=== PATIENT | male | born 1955 | race Caucasian/White ===

== ENCOUNTER 2016-10-30 18:29 | Emergency (ER) | payer MEDICARE, OTHER ==
--- NOTE | 2016-10-30 18:47 | ER Document Report ---
ED Medical Screen (RME) - General Chief Complaint: Foot Injury Stated Complaint: RIGHT HEEL PROBLEM, LEFT LEG PAIN Time seen by provider: 18:42 Mode of Arrival: Wheelchair Information source: Patient Notes: 61-year-old diabetic renal dialysis patient noticed that there was skin peeling off when he thought a dressing needed to come off of the right heel last night. After dialysis they were trying to get him seen at the wound care clinic but never got any phone calls back. 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 IN LAST 30 DAYS: No - Related Data Allergies/Adverse Reactions: No Known Allergies Allergy (Verified 08/04/16 00:42) Past Medical History - Past Medical History Cardiac Medical History: Reports: Hx Coronary Artery Disease, Hx Heart Attack, Hx Hypercholesterolemia, Hx Hypertension, Hx Heart Murmur Denies: Hx Atrial Fibrillation, Hx Congestive Heart Failure, Hx Peripheral Vascular Disease, Hx Pulmonary Embolism Pulmonary Medical History: Reports: Hx Bronchitis, Hx Pneumonia, Hx Respiratory Failure, Hx Sleep Apnea Denies: Hx Asthma, Hx COPD Neurological Medical History: Denies: Hx Cerebrovascular Accident, Hx Seizures Endocrine Medical History: Reports: Hx Diabetes Mellitus Type 2. Denies: Hx Graves' Disease, Hx Hyperthyroidism, Hx Hypothyroidism Renal/ Medical History: Reports: Hx End Stage Renal Disease, Hx Hemodialysis. Denies: Hx Benign Prostatic Hyperplasia, Hx Kidney Stones, Hx Peritoneal Dialysis Malignancy Medical History: Denies Hx Leukemia, Denies Hx Lung Cancer GI Medical History: Reports: Hx Gastroesophageal Reflux Disease, Hx Irritable Bowel, Hx Ulcer. Denies: Hx Crohn's Disease, Hx Hepatitis, Hx Hiatal Hernia, Hx Liver Failure Musculoskeltal Medical History: Reports Hx Arthritis, Denies Hx Fibromyalgia, Denies Hx Muscular Dystrophy Psychiatric Medical History: Reports: Hx Depression, Hx Post Traumatic Stress Disorder Denies: Hx Bipolar Disorder, Hx Schizophrenia Traumatic Medical History: Reports: Hx Fractures - Left ankle Infectious Medical History: Denies: Hx Hepatitis, Hx HIV Past Surgical History: Reports: Hx Bowel Surgery - ruptured bowel, Hx Colostomy - reversed, Hx Orthopedic Surgery - Left rotator cuff x2, right rotator cuff x1 , Hx Tonsillectomy. Denies: Hx Appendectomy, Hx Cholecystectomy, Hx Coronary Artery Bypass Graft, Hx Gastric Bypass Surgery, Hx Herniorrhaphy, Hx Open Heart Surgery, Hx Pacemaker - Immunizations Hx Diphtheria, Pertussis, Tetanus Vaccination: Yes Physical Exam - Vital signs Vitals: Temp Pulse Resp BP Pulse Ox 97.9 F 96 20 128/68 H 96 10/30/16 18:40 10/30/16 18:40 10/30/16 18:40 10/30/16 18:40 10/30/16 18:40 Course - Vital Signs Vital signs: Temp Pulse Resp BP Pulse Ox 97.9 F 96 20 128/68 H 96 10/30/16 18:40 10/30/16 18:40 10/30/16 18:40 10/30/16 18:40 10/30/16 18:40
[2016-10-30 19:36] LABS: ABSOLUTE BASOPHILS # (AUTO) 0.1 10^3/uL (0.0-0.2); ABSOLUTE EOSINOPHILS # (AUTO) 0.2 10^3/uL (0.0-0.6); ABSOLUTE LYMPHOCYTES (AUTO) 1.1 10^3/uL (0.5-4.7); ABSOLUTE MONOCYTES (AUTO) 0.7 10^3/uL (0.1-1.4); ABSOLUTE NEUT (AUTO) 6.9 10^3/uL (1.7-8.2); BASOPHILS % (AUTO) 0.6 % (0-2); EOSINOPHILS % (AUTO) 2.3 % (0-6); HEMATOCRIT 33.6 % (37.9-51.0); HGB HCT DIFFERENCE 2.4; LYMPHOCYTES % (AUTO) 12.3 % (13-45); MEAN CORPUSCULAR HEMOGLOBIN 32.7 pg (27.0-33.4); MEAN CORPUSCULAR HGB CONC 35.7 g/dL (32.0-36.0); MEAN CORPUSCULAR VOLUME 92 fl (80-97); MONOCYTES % (AUTO) 7.8 % (3-13); RED BLOOD COUNT 3.68 10^6/uL (4.35-5.55); RED CELL DISTRIBUTION WIDTH 16.3 % (11.5-14.0)
[2016-10-30 19:41] LABS: PROTHROMBIN TIME 13.4 SEC (11.4-15.4)
[2016-10-30 19:42] LABS: PARTIAL THROMBOPLASTIN TIME 30.1 SEC (23.5-35.8)
[2016-10-30 19:57] LABS: ALANINE AMINOTRANSFERASE 26 U/L (21-72); ALBUMIN 4.3 g/dL (3.5-5.0); ALKALINE PHOSPHATASE 169 U/L (38-126); ASPARTATE AMINO TRANSFERASE 19 U/L (17-59); BILIRUBIN,TOTAL 0.4 mg/dL (0.2-1.3); BLOOD UREA NITROGEN 54 mg/dL (7-20); CALCIUM 8.1 mg/dL (8.4-10.2); CHLORIDE 98 mmol/L (98-107); CREATININE RESULT 8.89 mg/dL (0.52-1.25); GLUCOSE 291 mg/dL (75-110); POTASSIUM 5.6 mmol/L (3.6-5.0); TOTAL PROTEIN 6.9 g/dL (6.3-8.2)
--- NOTE | 2016-10-30 19:58 | ER Document Report ---
ED General - General Chief Complaint: Leg Pain Stated Complaint: RIGHT HEEL PROBLEM, LEFT LEG PAIN Time seen by provider: 19:53 Mode of Arrival: Wheelchair Information source: Patient Notes: 61-year-old male removed his shoe and sock this morning and felt as if there was a bandage on his heel and his noted that when he accidentally got his pealed back considerable portion of skin from the heel. Patient initially went to his physician Dr. Carolee GIL for this today Dr. Carolee GIL requested that he try to get in to see the wound clinic here today but patient says he never got a call back so he came to the emergency department. Patient says he did dialyze today as he normally does and is due to dialysis again tomorrow because of recent weather problems. He denies fever, chills, nausea, vomiting, cough, shortness of breath, chest pain, abdominal pain. He reports making minimal urine. Patient complains about worsening pain in his left BKA stump says he did not have any drainage or redness in that area Physical Exam: General: Alert, appears well. HEENT: Normocephalic. Atraumatic. PERRLA. Extraocular movements intact. Oropharynx clear. Neck: Supple. Non-tender. Respiratory: No respiratory distress. Clear and equal breath sounds bilaterally. Cardiovascular: Regular rate and rhythm. Abdominal: Normal Inspection. Soft, non-tender. No distension. Normal Bowel Sounds. Extremities. Left forearm dialysis access site appears healthy. Left BKA stump site appears healthy. Right lower extremity has 1 posttussis and posterior tibial pulses with brisk cap refill to toes. There is a 4 x 4 centimeter area of pealed back scan with healthy-appearing tissue underneath and no surrounding erythema or edema or crepitance or fluctuance. Neurological: Speech clear mentation clear moves extremities well Psychological: Normal affect. Normal Mood. Skin: Warm. Dry. Normal color. TRAVEL OUTSIDE OF THE [place] IN LAST 30 DAYS: No - Related Data Allergies/Adverse Reactions: No Known Allergies Allergy (Verified 08/04/16 00:42) Past Medical History - General Information source: Patient - Social History Smoking Status: Unknown if Ever Smoked Family History: Hypertension Patient has suicidal ideation: No Patient has homicidal ideation: No - Past Medical History Cardiac Medical History: Reports: Hx Coronary Artery Disease, Hx Heart Attack, Hx Hypercholesterolemia, Hx Hypertension, Hx Heart Murmur Denies: Hx Atrial Fibrillation, Hx Congestive Heart Failure, Hx Peripheral Vascular Disease, Hx Pulmonary Embolism Pulmonary Medical History: Reports: Hx Bronchitis, Hx Pneumonia, Hx Respiratory Failure, Hx Sleep Apnea Denies: Hx Asthma, Hx COPD Neurological Medical History: Denies: Hx Cerebrovascular Accident, Hx Seizures Endocrine Medical History: Reports: Hx Diabetes Mellitus Type 2. Denies: Hx Graves' Disease, Hx Hyperthyroidism, Hx Hypothyroidism Renal/ Medical History: Reports: Hx End Stage Renal Disease, Hx Hemodialysis. Denies: Hx Benign Prostatic Hyperplasia, Hx Kidney Stones, Hx Peritoneal Dialysis Malignancy Medical History: Denies Hx Leukemia, Denies Hx Lung Cancer GI Medical History: Reports: Hx Gastroesophageal Reflux Disease, Hx Irritable Bowel, Hx Ulcer. Denies: Hx Crohn's Disease, Hx Hepatitis, Hx Hiatal Hernia, Hx Liver Failure Musculoskeltal Medical History: Reports Hx Arthritis, Denies Hx Fibromyalgia, Denies Hx Muscular Dystrophy Psychiatric Medical History: Reports: Hx Depression, Hx Post Traumatic Stress Disorder Denies: Hx Bipolar Disorder, Hx Schizophrenia Traumatic Medical History: Reports: Hx Fractures - Left ankle Infectious Medical History: Denies: Hx Hepatitis, Hx HIV Past Surgical History: Reports: Hx Bowel Surgery - ruptured bowel, Hx Colostomy - reversed, Hx Orthopedic Surgery - Left rotator cuff x2, right rotator cuff x1 , Hx Tonsillectomy. Denies: Hx Appendectomy, Hx Cholecystectomy, Hx Coronary Artery Bypass Graft, Hx Gastric Bypass Surgery, Hx Herniorrhaphy, Hx Open Heart Surgery, Hx Pacemaker - Immunizations Hx Diphtheria, Pertussis, Tetanus Vaccination: Yes Hx Pneumococcal Vaccination: 12/30/11 Review of Systems - Review of Systems Constitutional: denies: Chills, Fever EENT: denies: Ear pain, Throat pain Cardiovascular: denies: Chest pain Respiratory: denies: Cough, Short of breath Gastrointestinal: denies: Abdominal pain, Nausea, Vomiting Genitourinary: denies: Frequency Musculoskeletal: denies: Back pain Hematologic/Lymphatic: denies: Swollen glands Neurological/Psychological: Numbness Physical Exam - Vital signs Vitals: Temp Pulse Resp BP Pulse Ox 97.9 F 96 20 128/68 H 96 10/30/16 18:40 10/30/16 18:40 10/30/16 18:40 10/30/16 18:40 10/30/16 18:40 Course - Re-evaluation Re-evalutation: 10/30/16 20:13 Patient has a loss of epidermis with intact dermis and no signs or symptoms of any deep infection or osteomyelitis. We placed on antibiotics orally and asked to follow with wound care as soon as possible with meticulous care to the area of the wound and visualizing it daily until he is seen by was declan. Dressing will be placed on it here. - Vital Signs Vital signs: Temp Pulse Resp BP Pulse Ox 97.9 F 96 20 128/68 H 96 10/30/16 18:40 10/30/16 18:40 10/30/16 18:40 10/30/16 18:40 10/30/16 18:40 - Laboratory Result Diagrams: 10/30/16 19:15 10/30/16 19:15 Laboratory results interpreted by me: 10/30/16 10/30/16 19:15 19:15 RBC 3.68 L Hgb 12.0 L Hct 33.6 L RDW 16.3 H Lymphocytes % 12.3 L Potassium 5.6 H Carbon Dioxide 20 L Anion Gap 22 H BUN 54 H Creatinine 8.89 H Est GFR ( Amer) 7 L Est GFR (Non-Af Amer) 6 L Glucose 291 H Calcium 8.1 L Alkaline Phosphatase 169 H - Diagnostic Test Radiology reviewed: Image reviewed, Reports reviewed Discharge - Discharge Clinical Impression: Pressure sore Qualifiers: Pressure ulcer location: heel Pressure ulcer stage: stage 2 Laterality: right Qualified Code(s): L89.612 - Pressure ulcer of right heel, stage 2 Clinical Impression: (Ruled Out): Decubitus ulcer of right heel, unstageable Condition: Stable Disposition: HOME, SELF-CARE Additional Instructions: Decubitus Ulcer A decubitus ulcer develops where there's pressure on the skin. It's a common problem in patients who can't move easily. The healing time depends on the size and depth of the ulcer, and on whether further damage can be avoided. If there are signs of infection, an antibiotic is prescribed. The ulcer should be cleaned and bandaged at least daily. The doctor may recommend special treatments such as whirlpool. Further pressure (such as lying on the ulcer area) should be absolutely avoided. Frequent changes of position will avoid further ulcers. To help the ulcer heal, pay close attention to general health. Diabetics should keep the blood sugar as normal as possible. Edema can be reduced with medication. Low blood oxygen can be improved with medication to improve breathing or an oxygen tank at home. Review the treatment of all medical problems with the doctor. Infection can spread from the ulcer. If there's fever, chilling, worsening pain, or increasing swelling in the area, call the doctor or return immediately. Prescriptions: Cephalexin Monohydrate [Keflex 500 mg Capsule] 500 mg PO QID #20 capsule Referrals: JOHNNY MCALLISTER MD [Primary Care Provider] - Follow up as needed Wound Care [Provider Group] - Follow up tomorrow
[2016-10-30 20:06] LABS: CARBON DIOXIDE 20 mmol/L (22-30); SODIUM 140.1 mmol/L (137-145)
[2016-10-30 20:08] LABS: ANION GAP 22 (5-19)
[2016-10-30 20:52] VITALS: BP 129/54
== END 2016-10-30 20:47 | disposition home or self-care (01) ==
LOC: ER 18:29
DX: L89.612 Pressure ulcer of right heel, stage 2 (principal); M79.605 Pain in left leg
CPT/HCPCS: 36415; 80053; 85025; 85610; 85730; 99283

== ENCOUNTER → 2016-11-13 | Outpatient (CLI) | payer MEDICARE, OTHER ==
--- NOTE | 2016-11-13 16:41 | XCELERA REPORT ---
[address] [address] Lower Extremity Arterial Evaluation Name: SHARONDA SU Age: 61 yrs Gender: Male : 1955 Patient Status: Outpatient Patient Location: Study Date: 11/13/2016 08:47 AM Procedure: A color flow and duplex scan of the lower extremity arteries was performed bilaterally with velocity and waveform anaylsis. Ankle brachial indicies performed. Reason For Study: RIGHT HEEL ULCER Ordering Physician: GONZALES SARMIENTO Performed By: Anil Mcdaniel Measurements and Calculations Right Left BUILDING SUPERINTENDENT PSV 117.1 86.6 cm/sec Prox PFA PSV -52.0 -45.4 cm/sec Dist SFA PSV -196.4 -89.9 cm/sec Prox Pop A PSV 52.7 348.9 cm/sec Dist ROMERO PSV 68.0 91.5 cm/sec Prox TOXICOLOGY TEACHER PSV 43.2 cm/sec Dist TOXICOLOGY TEACHER PSV -117.5 cm/sec Herman Pedis PSV -75.1 cm/sec Right Side Arterial Evaluation Normal velocity, waveform and triphasic flow are present, from the Common Femoral artery down to the Anterior Tibial artery. Biphasic in the Posterior Tibial artery. The ankle-brachial index is 1.00. Non compressible Posterior Tibial artery. 20-49 % stenosis is noted at the Posterior Tibial artery. Left Side Arterial Evaluation Normal velocity, waveform and triphasic flow are present, from the Common Femoral artery down to the infrageniculate vessels. artery. In the BKA stump. High velocity in the Popliteal artery, may indicate stenosis. The ankle-brachial index was not possible due to BKA.. 0-19 % stenosis is noted at the Popliteal artery. Interpretation Summary Mild hemodynamically significant lesions in the right lower extremity only, on duplex imaging, at rest. Mild hemodynamically significant lesions in the left lower extremity only, on duplex imaging, at rest. : GONZALES SARMIENTO > Gonzales Sarmiento
== END ==
LOC: SP 08:18
PROVIDERS: ATTEND Surgery
DX: L97.412 Non-pressure chronic ulcer of right heel and midfoot with fat layer exposed (principal)
CPT/HCPCS: 93925

== ENCOUNTER → 2016-11-17 | Outpatient (CLI) | payer MEDICARE, OTHER | LOC: OD 12:55 | PROVIDERS: ATTEND Nurse Practitioner Family | DX: Z01.818 Encounter for other preprocedural examination (principal) | CPT/HCPCS: 71020 ==

== ENCOUNTER → 2016-11-22 | Outpatient (CLI) | payer MEDICARE, OTHER ==
[2016-11-22 13:11] LABS: ABSOLUTE BASOPHILS # (AUTO) 0.1 10^3/uL (0.0-0.2); ABSOLUTE EOSINOPHILS # (AUTO) 0.2 10^3/uL (0.0-0.6); ABSOLUTE LYMPHOCYTES (AUTO) 1.7 10^3/uL (0.5-4.7); ABSOLUTE NEUT (AUTO) 6.5 10^3/uL (1.7-8.2); BASOPHILS % (AUTO) 0.8 % (0-2); EOSINOPHILS % (AUTO) 1.9 % (0-6); HEMATOCRIT 37.4 % (37.9-51.0); HEMOGLOBIN 12.2 g/dL (13.5-17.0); HGB HCT DIFFERENCE -0.8; LYMPHOCYTES % (AUTO) 18.1 % (13-45); MEAN CORPUSCULAR HEMOGLOBIN 30.5 pg (27.0-33.4); MEAN CORPUSCULAR HGB CONC 32.6 g/dL (32.0-36.0); MEAN CORPUSCULAR VOLUME 93 fl (80-97); MONOCYTES % (AUTO) 10.7 % (3-13); SEGMENTED NEUTROPHILS % (AUTO) 68.5 % (42-78); WHITE BLOOD COUNT 9.5 10^3/uL (4.0-10.5)
[2016-11-22 13:47] LABS: ERYTHROCYTE SEDIMENTATION RATE 97 mm/hr (0-20)
== END ==
LOC: OD 12:20
PROVIDERS: ATTEND Orthopaedic Surgery
DX: M25.562 Pain in left knee (principal); S88.92 Partial traumatic amputation of lower leg, level unspecified; X58.XXXD Exposure to other specified factors, subsequent encounter
CPT/HCPCS: 36415; 85025; 85652; 86140

== ENCOUNTER → 2016-11-24 | Outpatient (CLI) | payer MEDICARE, OTHER | LOC: RAD 17:25 | PROVIDERS: ATTEND Orthopaedic Surgery | DX: S88.92 Partial traumatic amputation of lower leg, level unspecified (principal); M25.562 Pain in left knee; X58.XXXD Exposure to other specified factors, subsequent encounter ==

== ENCOUNTER 2016-11-29 17:13 | Emergency (ER) | payer MEDICARE, OTHER ==
--- NOTE | 2016-11-29 17:29 | ER Document Report ---
ED Medical Screen (RME) - General Stated Complaint: ABNORMAL LABS Notes: 61 yo male sent from Dr Javi Young's office for abnormal lab. Potassium 6.1. Pt is hemodialysis patient, Nino Felipe. Pt is asymptomatic TRAVEL OUTSIDE OF THE [place] IN LAST 30 DAYS: No - Related Data Allergies/Adverse Reactions: No Known Allergies Allergy (Verified 11/29/16 17:29) Past Medical History - Past Medical History Cardiac Medical History: Reports: Hx Coronary Artery Disease, Hx Heart Attack, Hx Hypercholesterolemia, Hx Hypertension, Hx Heart Murmur Denies: Hx Atrial Fibrillation, Hx Congestive Heart Failure, Hx Peripheral Vascular Disease, Hx Pulmonary Embolism Pulmonary Medical History: Reports: Hx Bronchitis, Hx Pneumonia, Hx Respiratory Failure, Hx Sleep Apnea Denies: Hx Asthma, Hx COPD Neurological Medical History: Denies: Hx Cerebrovascular Accident, Hx Seizures Endocrine Medical History: Reports: Hx Diabetes Mellitus Type 2. Denies: Hx Graves' Disease, Hx Hyperthyroidism, Hx Hypothyroidism Renal/ Medical History: Reports: Hx End Stage Renal Disease, Hx Hemodialysis. Denies: Hx Benign Prostatic Hyperplasia, Hx Kidney Stones, Hx Peritoneal Dialysis Malignancy Medical History: Denies Hx Leukemia, Denies Hx Lung Cancer GI Medical History: Reports: Hx Gastroesophageal Reflux Disease, Hx Irritable Bowel, Hx Ulcer. Denies: Hx Crohn's Disease, Hx Hepatitis, Hx Hiatal Hernia, Hx Liver Failure Musculoskeltal Medical History: Reports Hx Arthritis, Denies Hx Fibromyalgia, Denies Hx Muscular Dystrophy Psychiatric Medical History: Reports: Hx Depression, Hx Post Traumatic Stress Disorder Denies: Hx Bipolar Disorder, Hx Schizophrenia Traumatic Medical History: Reports: Hx Fractures - Left ankle Infectious Medical History: Denies: Hx Hepatitis, Hx HIV Past Surgical History: Reports: Hx Bowel Surgery - ruptured bowel, Hx Colostomy - reversed, Hx Orthopedic Surgery - Left rotator cuff x2, right rotator cuff x1 , Hx Tonsillectomy. Denies: Hx Appendectomy, Hx Cholecystectomy, Hx Coronary Artery Bypass Graft, Hx Gastric Bypass Surgery, Hx Herniorrhaphy, Hx Open Heart Surgery, Hx Pacemaker - Immunizations Hx Diphtheria, Pertussis, Tetanus Vaccination: Yes Physical Exam - Vital signs Vitals: Temp Pulse Resp BP Pulse Ox 98.1 F 99 20 109/57 L 95 11/29/16 17:25 11/29/16 17:25 11/29/16 17:25 11/29/16 17:25 11/29/16 17:25 Course - Vital Signs Vital signs: Temp Pulse Resp BP Pulse Ox 98.1 F 99 20 109/57 L 95 11/29/16 17:25 11/29/16 17:25 11/29/16 17:25 11/29/16 17:25 11/29/16 17:25
[2016-11-29 18:20] LABS: BLOOD UREA NITROGEN 54 mg/dL (7-20); CALCIUM 8.8 mg/dL (8.4-10.2); CREATININE RESULT 8.94 mg/dL (0.52-1.25); GLUCOSE 303 mg/dL (75-110)
[2016-11-29 18:34] LABS: CARBON DIOXIDE 23 mmol/L (22-30); CHLORIDE 97 mmol/L (98-107); SODIUM 140.6 mmol/L (137-145)
[2016-11-29 18:37] LABS: ANION GAP 21 (5-19)
[2016-11-29] MEDS ORDERED: DEXTROSE 50%-WATER 25 GM/50 ML DISP.SYRIN IV ONE (22:34)
[2016-11-29] MEDS ORDERED: INSULIN REG, HUMAN 100 UNIT/ML 3 ML VIAL (PYX) IV ONE (22:34)
[2016-11-29] MEDS ORDERED: SODIUM POLYSTYRENE SULFONATE 15 GM/60 ML PO ONE (22:34)
[2016-11-30 01:39] LABS: BLOOD UREA NITROGEN 58 mg/dL (7-20); CALCIUM 8.5 mg/dL (8.4-10.2); CHLORIDE 95 mmol/L (98-107); CREATININE RESULT 9.78 mg/dL (0.52-1.25); GLUCOSE 299 mg/dL (75-110); POTASSIUM 5.1 mmol/L (3.6-5.0)
[2016-11-30 01:47] LABS: CARBON DIOXIDE 24 mmol/L (22-30); SODIUM 140.1 mmol/L (137-145)
[2016-11-30 01:49] LABS: ANION GAP 21 (5-19)
--- NOTE | 2016-11-30 02:20 | ER Document Report ---
ED General - General Chief Complaint: Abnormal Lab Results Stated Complaint: ABNORMAL LABS Notes: Patient is a 61-year-old male with dialysis-dependent end-stage kidney disease who presents with concerns of hyperkalemia. States he was told by his input output clerk that his potassium was 6 and he needed to come to the emergency department. He does have a history of similar symptoms in the past. His last session of dialysis was on Sunday. It was a normal full session. He has not missed any dialysis. He makes minimal to no urine. No recent medication changes. He denies any symptoms at this time. TRAVEL OUTSIDE OF THE [place] IN LAST 30 DAYS: No - Related Data Allergies/Adverse Reactions: No Known Allergies Allergy (Verified 11/29/16 17:29) Past Medical History - General Information source: Patient - Social History Smoking Status: Never Smoker Chew tobacco use (# tins/day): No Frequency of alcohol use: None Drug Abuse: None Lives with: Family Family History: Hypertension Patient has suicidal ideation: No Patient has homicidal ideation: No - Past Medical History Cardiac Medical History: Reports: Hx Coronary Artery Disease, Hx Heart Attack, Hx Hypercholesterolemia, Hx Hypertension, Hx Heart Murmur Denies: Hx Atrial Fibrillation, Hx Congestive Heart Failure, Hx Peripheral Vascular Disease, Hx Pulmonary Embolism Pulmonary Medical History: Reports: Hx Bronchitis, Hx Pneumonia, Hx Respiratory Failure, Hx Sleep Apnea Denies: Hx Asthma, Hx COPD Neurological Medical History: Denies: Hx Cerebrovascular Accident, Hx Seizures Endocrine Medical History: Reports: Hx Diabetes Mellitus Type 2. Denies: Hx Graves' Disease, Hx Hyperthyroidism, Hx Hypothyroidism Renal/ Medical History: Reports: Hx End Stage Renal Disease, Hx Hemodialysis. Denies: Hx Benign Prostatic Hyperplasia, Hx Kidney Stones, Hx Peritoneal Dialysis Malignancy Medical History: Denies Hx Leukemia, Denies Hx Lung Cancer GI Medical History: Reports: Hx Gastroesophageal Reflux Disease, Hx Irritable Bowel, Hx Ulcer. Denies: Hx Crohn's Disease, Hx Hepatitis, Hx Hiatal Hernia, Hx Liver Failure Musculoskeltal Medical History: Reports Hx Arthritis, Denies Hx Fibromyalgia, Denies Hx Muscular Dystrophy Psychiatric Medical History: Reports: Hx Depression, Hx Post Traumatic Stress Disorder Denies: Hx Bipolar Disorder, Hx Schizophrenia Traumatic Medical History: Reports: Hx Fractures - Left ankle Infectious Medical History: Denies: Hx Hepatitis, Hx HIV Past Surgical History: Reports: Hx Bowel Surgery - ruptured bowel, Hx Colostomy - reversed, Hx Orthopedic Surgery - Left rotator cuff x2, right rotator cuff x1 , Hx Tonsillectomy. Denies: Hx Appendectomy, Hx Cholecystectomy, Hx Coronary Artery Bypass Graft, Hx Gastric Bypass Surgery, Hx Herniorrhaphy, Hx Open Heart Surgery, Hx Pacemaker - Immunizations Hx Diphtheria, Pertussis, Tetanus Vaccination: Yes Hx Pneumococcal Vaccination: 12/30/11 Review of Systems - Review of Systems Notes: Constitutional: Negative for fever. HENT: Negative for sore throat. Eyes: Negative for visual changes. Cardiovascular: Negative for chest pain. Respiratory: Negative for shortness of breath. Gastrointestinal: Negative for abdominal pain, vomiting or diarrhea. Genitourinary: Negative for dysuria. Musculoskeletal: Negative for back pain. Skin: Negative for rash. Neurological: Negative for headaches, weakness or numbness. 10 point ROS negative except as marked above and in HPI. Physical Exam - Vital signs Vitals: Temp Pulse Resp BP Pulse Ox 98.1 F 99 20 109/57 L 95 11/29/16 17:25 11/29/16 17:25 11/29/16 17:25 11/29/16 17:25 11/29/16 17:25 Interpretation: Normal Notes: PHYSICAL EXAMINATION: GENERAL: Well-appearing, well-nourished and in no acute distress. HEAD: Atraumatic, normocephalic. EYES: Pupils equal round and reactive to light, extraocular movements intact, sclera anicteric, conjunctiva are normal. ENT: nares patent, oropharynx clear without exudates. Moist mucous membranes. NECK: Normal range of motion, supple without lymphadenopathy LUNGS: Breath sounds clear to auscultation bilaterally and equal. No wheezes rales or rhonchi. HEART: Regular rate and rhythm without murmurs ABDOMEN: Soft, nontender, normoactive bowel sounds. No guarding, no rebound. No masses appreciated NEUROLOGICAL: No focal neurological deficits. Moves all extremities spontaneously and on command. PSYCH: Normal mood, normal affect. SKIN: Warm, Dry, normal turgor, no rashes or lesions noted. Course - Re-evaluation Re-evalutation: 11/30/16 02:17 Patient presents with asymptomatic hyperkalemia, potassium of 6. No EKG changes. I discussed this case with Dr. Young the patient's input output clerk who was in agreement that as long as patient's potassium down trended after treatment with insulin, glucose, and Kayexalate that he could be discharged for dialysis in the morning. Potassium did downtrend of 5.1. Patient remains asymptomatic.At this time will discharge with return precautions and follow-up recommendations. Verbal discharge instructions given a the bedside and opportunity for questions given. Medication warnings reviewed. Patient is in agreement with this plan and has verbalized understanding of return precautions and the need to go to dialysis tomorrow as scheduled. - Vital Signs Vital signs: Temp Pulse Resp BP Pulse Ox 98.4 F 93 18 113/60 96 11/30/16 02:27 11/30/16 02:27 11/30/16 02:27 11/30/16 02:27 11/30/16 02:27 - Laboratory Result Diagrams: 11/30/16 01:15 Laboratory results interpreted by me: 11/29/16 11/30/16 17:50 01:15 Potassium 6.0 H* 5.1 H Chloride 97 L 95 L Anion Gap 21 H 21 H BUN 54 H 58 H Creatinine 8.94 H 9.78 H Est GFR ( Amer) 7 L 7 L Est GFR (Non-Af Amer) 6 L 5 L Glucose 303 H 299 H - EKG Interpretation by Me Additional EKG results interpreted by me: 11/30/16 02:19 Normal sinus rhythm. Rate 99. No ST elevations or depressions. QTC 432. Discharge - Discharge Clinical Impression: Hyperkalemia Condition: Good Disposition: HOME, SELF-CARE Additional Instructions: You need to go to dialysis tomorrow as scheduled. Repeat potassium was 5.1 down from 6 originally. Please return if you develop any symptoms that are concerning to you including passing out, weakness, numbness, or any other symptoms that are worrisome. Referrals: JOHNNY MCALLISTER MD [Primary Care Provider] - Follow up as needed
[2016-11-30 02:31] VITALS: BP 113/60
--- NOTE | 2016-11-30 08:22 | EKG REPORT ---
SEVERITY:- ABNORMAL ECG - SINUS RHYTHM FIRST DEGREE AV BLOCK PROBABLE LEFT ATRIAL ABNORMALITY POOR R PROGRESSION ANT PRECORDIAL LEADS : Confirmed by: Jayesh Lopez MD 30-Nov-2016 08:21:28
== END 2016-11-30 02:27 | disposition home or self-care (01) ==
LOC: ER 17:13
DX: E87.5 Hyperkalemia (principal); E11.22 Type 2 diabetes mellitus with diabetic chronic kidney disease; I12.0 Hypertensive chronic kidney disease with stage 5 chronic kidney disease or end stage renal disease; N18.6 End stage renal disease; Z99.2 Dependence on renal dialysis; I25.10 Atherosclerotic heart disease of native coronary artery without angina pectoris; I25.2 Old myocardial infarction
CPT/HCPCS: 93005; 99283; 96374; 36415; 80048; 93010; J3490; A9270; J1815

== ENCOUNTER → 2016-11-29 | Outpatient (CLI) | payer MEDICARE, OTHER ==
[2016-11-29 14:11] LABS: ABSOLUTE BASOPHILS # (AUTO) 0.1 10^3/uL (0.0-0.2); ABSOLUTE EOSINOPHILS # (AUTO) 0.2 10^3/uL (0.0-0.6); ABSOLUTE LYMPHOCYTES (AUTO) 1.5 10^3/uL (0.5-4.7); ABSOLUTE MONOCYTES (AUTO) 1.1 10^3/uL (0.1-1.4); ABSOLUTE NEUT (AUTO) 7.6 10^3/uL (1.7-8.2); BASOPHILS % (AUTO) 0.6 % (0-2); EOSINOPHILS % (AUTO) 2.2 % (0-6); HEMOGLOBIN 11.7 g/dL (13.5-17.0); HGB HCT DIFFERENCE -0.9; LYMPHOCYTES % (AUTO) 14.4 % (13-45); MEAN CORPUSCULAR HEMOGLOBIN 30.5 pg (27.0-33.4); MEAN CORPUSCULAR HGB CONC 32.5 g/dL (32.0-36.0); MEAN CORPUSCULAR VOLUME 94 fl (80-97); MONOCYTES % (AUTO) 10.3 % (3-13); RED BLOOD COUNT 3.84 10^6/uL (4.35-5.55); RED CELL DISTRIBUTION WIDTH 16.2 % (11.5-14.0); SEGMENTED NEUTROPHILS % (AUTO) 72.5 % (42-78); WHITE BLOOD COUNT 10.4 10^3/uL (4.0-10.5)
[2016-11-29 14:23] LABS: ALANINE AMINOTRANSFERASE 29 U/L (21-72); ALBUMIN 4.5 g/dL (3.5-5.0); ALKALINE PHOSPHATASE 143 U/L (38-126); ANION GAP 18 (5-19); ASPARTATE AMINO TRANSFERASE 16 U/L (17-59); BILIRUBIN,TOTAL 0.5 mg/dL (0.2-1.3); BLOOD UREA NITROGEN 49 mg/dL (7-20); C-REACTIVE PROTEIN 36.4 mg/L (<10.0); CALCIUM 9.2 mg/dL (8.4-10.2); CARBON DIOXIDE 26 mmol/L (22-30); CHLORIDE 96 mmol/L (98-107); CREATININE RESULT 8.58 mg/dL (0.52-1.25); GLUCOSE 199 mg/dL (75-110); SODIUM 140.1 mmol/L (137-145); TOTAL PROTEIN 7.2 g/dL (6.3-8.2)
[2016-11-29 14:44] LABS: POTASSIUM 6.1 mmol/L (3.6-5.0)
[2016-11-29 15:08] LABS: ERYTHROCYTE SEDIMENTATION RATE 92 mm/hr (0-20)
== END ==
LOC: WC 12:26
PROVIDERS: ATTEND Nurse Practitioner Family
DX: E11.621 Type 2 diabetes mellitus with foot ulcer (principal)
CPT/HCPCS: 36415; 80053; 83036; 85025; 85652; 86140

== ENCOUNTER → 2016-12-01 | Outpatient (CLI) | payer MEDICARE, OTHER | LOC: RAD 15:21 | PROVIDERS: ATTEND Nurse Practitioner Family | DX: E11.621 Type 2 diabetes mellitus with foot ulcer (principal); L97.412 Non-pressure chronic ulcer of right heel and midfoot with fat layer exposed ==

== ENCOUNTER → 2016-12-01 | Outpatient (CLI) | payer MEDICARE, OTHER | LOC: OD 09:54 | PROVIDERS: ATTEND Orthopaedic Surgery | DX: Z01.810 Encounter for preprocedural cardiovascular examination (principal); Z01.811 Encounter for preprocedural respiratory examination; Z01.818 Encounter for other preprocedural examination; Z79.899 Other long term (current) drug therapy; E11.9 Type 2 diabetes mellitus without complications; S88.92 Partial traumatic amputation of lower leg, level unspecified; X58.XXXD Exposure to other specified factors, subsequent encounter | CPT/HCPCS: 71020 ==

== ENCOUNTER 2016-12-05 05:16 | Inpatient (IN) | payer MEDICARE, OTHER ==
[2016-12-05] MEDS ORDERED: SUCCINYLCHOLINE CHLORIDE INJ 200 MG/10 ML VIAL ONE (10:18)
[2016-12-05] MEDS ORDERED: LIDOCAINE 2% INJ-PF (20 MG/ML) 10 ML AMPUL ONE (10:18)
[2016-12-05] MEDS ORDERED: PHENYLEPHRINE HCL INJ/PF 10 MG/1 ML SDV ONE (10:18)
[2016-12-05 14:24] LABS: POTASSIUM 5.1 mmol/L (3.6-5.0)
[2016-12-05] MEDS ORDERED: FENTANYL CITRATE INJ/PF 100 MCG/2 ML AMPUL ONE (17:24)
[2016-12-05] MEDS ORDERED: MIDAZOLAM 2 MG/2 ML INJ ONE (17:24)
[2016-12-05] MEDS ORDERED: PROPOFOL INJ 200 MG/20 ML VIAL IV ONE (17:24)
[2016-12-05] MEDS ORDERED: BACITRACIN INJ 50,000 UNIT VIAL ONE (17:50)
[2016-12-05] MEDS ORDERED: BUPIVACAINE HCL 0.5 % INJ/PF 30 ML SDV ONE (17:50)
[2016-12-05] MEDS ORDERED: CLINDAMYCIN PHOSPHATE INJ 300 MG/2 ML SDV ONE (18:05)
[2016-12-05] MEDS ORDERED: DIPHENHYDRAMINE HCL 50 MG/ML VIAL IV PRN (18:14)
[2016-12-05] MEDS ORDERED: MEPERIDINE HCL/PF INJ 25 MG/1 ML DISP.SYRIN IV PRN (18:14)
[2016-12-05] MEDS ORDERED: FENTANYL CITRATE INJ/PF 100 MCG/2 ML AMPUL IV PRN ×3 (18:14)
--- NOTE | 2016-12-05 19:30 | Operative Report ---
Operative Report DATE OF SURGERY: 12/05/16 PREOPERATIVE DIAGNOSIS: Abscess versus hematoma left below knee amputation POSTOPERATIVE DIAGNOSIS: Hematoma left below knee amputation OPERATION: Irrigation and excisional debridement deep soft tissue including bone with revision left bicwb-[id number] amputation SURGEON: MIKO PANG ANESTHESIA: GA TISSUE REMOVED OR ALTERED: Fungal. AFB. Aerobic/Anaerobic COMPLICATIONS: None ESTIMATED BLOOD LOSS: 75cc PROCEDURE: Indication for above procedure: 61-year-old male with multiple medical comorbidities who underwent a left below knee amputation early in 2015. He had been progressing appropriately until he sustained a fall in May since that times been having pain in his below knee amputation. Radiographs and MRI were obtained demonstrating questionable chronic changes including abscess/osteomyelitis versus hematoma. At that point we discussed treatment options including continued observation versus exploration and irrigation and debridement with possible revision amputation. After discussing risks and benefits patient verbalized understanding consented for the procedure. Procedure In Detail: Patient was seen and evaluated in the preoperative holding area. The left lower extremity was initialized and marked. Patient did not receive antibiotics until cultures were finalized. Patient was taken back to the operating room. He was placed under general anesthesia. Once adequate anesthetized a nonsterile tourniquet was placed on the left lower extremity. A surgical team debriefing was performed ensuring all instrumentation was available, the surgical procedure was discussed with possible concerns reviewed. The lower was prepped with ChloraPrep and draped in a sterile fashion. A timeout was done identifying correct patient, procedure and extremity everyone in attendance agree with this and verbalized no concerns. The extremity was elevated the tourniquet was inflated to 300 mmHg. Patient's previous skin incision was opened. Blunt dissection was performed through the soft tissues maintaining full-thickness fascial flaps. The peroneal and popliteal arteries were identified and tagged. Exploration was performed laterally along the distal stump at the area of the fluid collection as per MRI. Along this region no fluid collection could be appreciated. There was evidence of scar tissue and encapsulated FiberWire at this level. A portion of the soft tissue was resected and sent to pathology for fungal, AFB, aerobic and anaerobic cultures. Careful elevation of the soft tissue off of the distal stump was performed. There is no softening of the distal stump. There was a bone fragment anteriorly which appeared to have fractured off and healed with fibrous union. At this point I utilized the oscillating saw to perform a revision resection of the tibia. The bone was sent for culture and to pathology. The bone and was then smoothed to avoid postoperative irritation. The wound was irrigated with pulse lavage bacitracin. The peroneal nerve and sciatic nerve were identified. A revision neurectomy was performed proximal to the tibial stump. A keke drain was then placed into the wound. The tourniquet was then deflated. The peroneal and popliteal arteries were tied off with Vicryl suture. There was moderate amount of soft tissue bleeding but the wound was essentially dry after coagulation. I then proceeded with fascial closure. The fascial from the posterior stump was transposed anteriorly to cover the end of the stump but not placed through bone due to the previous fracture. This allowed coverage of the distal tibia. This was further secured with interrupted 0 Vicryl suture. Subcutaneous tissues were closed with 2-0 Vicryl suture. Skin was closed with damon. 20 mL of 0.5 % Marcaine without epinephrine was injected for postoperative pain control. Wound was dressed with Acticoat and OpSite. A well-padded loosely applied stump dressing of web roll and Puneet bandages was secured into position. Postoperative plan: Patient will be admitted overnight for observation. Drain will be DC'd in the a.m
[2016-12-05] MEDS ORDERED: ONDANSETRON HCL INJ/PF 4 MG/2 ML SDV IV PRN (19:31)
[2016-12-05] MEDS ORDERED: MORPHINE SULFATE 10 MG/ML INJ IV PRN (19:35)
[2016-12-05] MEDS: CLINDAMYCIN 600 MG/D5W RTU 50 ML IV SCH (21:16)
[2016-12-05] MEDS: HEPARIN SOD (PORCINE) 5,000 UNIT/ML 1 ML SYRINGE SUBCUT SCH (21:16)
[2016-12-05] MEDS: ZOLPIDEM TARTRATE 5 MG TABLET PO SCH (21:25)
[2016-12-06] MEDS ORDERED: NORMAL SALINE 1000 ML 500 ML IV ONE ×2 (00:30→02:30)
[2016-12-06] MEDS: NORMAL SALINE 1000 ML 1,000 ML IV PRN ×2 (01:06→02:34)
[2016-12-06 01:15] LABS: ABSOLUTE BASOPHILS # (AUTO) 0.1 10^3/uL (0.0-0.2); ABSOLUTE EOSINOPHILS # (AUTO) 0.2 10^3/uL (0.0-0.6); ABSOLUTE LYMPHOCYTES (AUTO) 1.7 10^3/uL (0.5-4.7); ABSOLUTE MONOCYTES (AUTO) 1.3 10^3/uL (0.1-1.4); ABSOLUTE NEUT (AUTO) 9.7 10^3/uL (1.7-8.2); BASOPHILS % (AUTO) 0.5 % (0-2); EOSINOPHILS % (AUTO) 1.3 % (0-6); HEMATOCRIT 30.7 % (37.9-51.0); HGB HCT DIFFERENCE -0.7; LYMPHOCYTES % (AUTO) 12.8 % (13-45); MEAN CORPUSCULAR HEMOGLOBIN 29.9 pg (27.0-33.4); MEAN CORPUSCULAR HGB CONC 32.5 g/dL (32.0-36.0); MEAN CORPUSCULAR VOLUME 92 fl (80-97); MONOCYTES % (AUTO) 10.2 % (3-13); RED BLOOD COUNT 3.34 10^6/uL (4.35-5.55); RED CELL DISTRIBUTION WIDTH 15.9 % (11.5-14.0); SEGMENTED NEUTROPHILS % (AUTO) 75.2 % (42-78); WHITE BLOOD COUNT 12.9 10^3/uL (4.0-10.5)
[2016-12-06 01:36] LABS: ANION GAP 15 (5-19); BLOOD UREA NITROGEN 49 mg/dL (7-20); CALCIUM 8.6 mg/dL (8.4-10.2); CARBON DIOXIDE 23 mmol/L (22-30); CHLORIDE 100 mmol/L (98-107); CREATININE RESULT 8.76 mg/dL (0.52-1.25); GLUCOSE 176 mg/dL (75-110); SODIUM 137.9 mmol/L (137-145)
[2016-12-06] MEDS ORDERED: NALOXONE HCL INJ/PF 0.4 MG/1 ML SDV ONE (01:37)
[2016-12-06 01:49] LABS: POTASSIUM 6.2 mmol/L (3.6-5.0)
[2016-12-06] MEDS ORDERED: IPRATROPIUM/ALBUTEROL 0.5-2.5 MG/3 ML AMPUL NEB ONE (02:15)
[2016-12-06] MEDS ORDERED: NALOXONE HCL INJ/PF 0.4 MG/1 ML SDV IV ONE (02:15)
[2016-12-06] MEDS ORDERED: LACTULOSE SYRUP 20 GM/30 ML UDCUP PO ONE (02:15)
[2016-12-06] MEDS: ACETAMINOPHEN 325 MG TABLET PO PRN (02:17)
[2016-12-06] MEDS ORDERED: SODIUM POLYSTYRENE SULFONATE 15 GM/60 ML PO ONE (02:30)
[2016-12-06 05:11] LABS: ABSOLUTE BASOPHILS # (AUTO) 0.1 10^3/uL (0.0-0.2); ABSOLUTE EOSINOPHILS # (AUTO) 0.1 10^3/uL (0.0-0.6); ABSOLUTE LYMPHOCYTES (AUTO) 1.3 10^3/uL (0.5-4.7); ABSOLUTE MONOCYTES (AUTO) 1.5 10^3/uL (0.1-1.4); ABSOLUTE NEUT (AUTO) 9.8 10^3/uL (1.7-8.2); BASOPHILS % (AUTO) 0.5 % (0-2); EOSINOPHILS % (AUTO) 1.1 % (0-6); LYMPHOCYTES % (AUTO) 10.2 % (13-45); MEAN CORPUSCULAR HEMOGLOBIN 29.4 pg (27.0-33.4); MEAN CORPUSCULAR HGB CONC 32.1 g/dL (32.0-36.0); MEAN CORPUSCULAR VOLUME 92 fl (80-97); MONOCYTES % (AUTO) 11.6 % (3-13); RED BLOOD COUNT 3.38 10^6/uL (4.35-5.55); RED CELL DISTRIBUTION WIDTH 15.8 % (11.5-14.0); SEGMENTED NEUTROPHILS % (AUTO) 76.6 % (42-78); WHITE BLOOD COUNT 12.8 10^3/uL (4.0-10.5)
--- NOTE | 2016-12-06 06:02 | PDOC CONSULTATION ---
Consultation Consult Date: 12/06/16 Attending physician:: HERACLIO PANG Consult reason:: Hypotension, hyperkalemia, end-stage renal failure History of Present Illness Admission Date/PCP: 12/05/16 13:04 JOHNNY MCALLISTER Patient complains of: Pain to left leg History of Present Illness: SHARONDA SU is a 61 year old male who is a past medical history of coronary artery disease status post 2 stents, end-stage renal failure on hemodialysis last dialysis yesterday December 05 prior to surgery, diabetes, chronic pain, diabetic neuropathy and morbid obesity. Who is admitted by Dr. Heraclio Pang, for left-sided BKA and had subsequent postoperative hypotension with labs revealing hyperkalemia of 6.2. Patient was dialyzed yesterday and thought to have 4 L removed perioperatively receiving approximately 500 mL of normal saline. Patient receives multiple narcotics during the day I'm called with a blood pressure of 94/55 and a pulse in the 70s, trial of Narcan is given resulting in a blood pressure 104/79, a 500 mL bolus of normal saline is running. Past Medical History Cardiac Medical History: Reports: Coronary Artery Disease, Myocardial Infarction , Hyperlipidema, Hypertension, Heart Murmur Denies: Atrial Fibrillation, Congestive Heart Failure, Peripheral Vascular Disease, Pulmonary Embolism Pulmonary Medical History: Reports: Bronchitis, Pneumonia, Respiratory Failure, Sleep Apnea Denies: Asthma, Chronic Obstructive Pulmonary Disease (COPD) Neurological Medical History: Denies: Seizures Endocrine Medical History: Reports: Diabetes Mellitus Type 2 Denies: Hyperthyroidism, Hypothyroidism Renal/ Medical History: Reports: End Stage Renal Disease Malignancy Medical History: Denies: Breast Cancer, Cervical Cancer, Leukemia, Lung Cancer, Ovarian Cancer GI Medical History: Reports: Gastroesophageal Reflux Disease Denies: Crohn's Disease, Hepatitis, Hiatal Hernia Musculoskeltal Medical History: Reports: Arthritis Denies: Fibromyalgia Psychiatric Medical History: Reports: Depression, Post Traumatic Stress Disorder Denies: Bipolar Disorder Hematology: Denies: Anemia, Hemophilia, Sickle Cell Disease Infectious Medical History: Denies: HIV Past Surgical History Past Surgical History: Reports: Colostomy - reversed, Orthopedic Surgery - Left rotator cuff x2, right rotator cuff x1, Tonsillectomy Denies: Appendectomy, Cholecystectomy, Coronary Artery Bypass Graft, Gastric Bypass Surgery, Herniorrhaphy, Pacemaker Social History Information Source: Patient Lives with: Family Smoking Status: Unknown if Ever Smoked Frequency of Alcohol Use: None Hx Recreational Drug Use: No Drugs: None Hx Prescription Drug Abuse: No - Advance Directive Resuscitation Status: Full Code Family History Family History: Hypertension Parental Family History Reviewed: Yes Children Family History Reviewed: Yes Sibling(s) Family History Reviewed.: Yes Medication/Allergy Home Medications: Atorvastatin Calcium 10 mg PO DAILY 12/07/15 Clopidogrel Bisulfate [Clopidogrel] 75 mg PO DAILY 12/07/15 Omeprazole 40 mg PO BID 12/07/15 Gabapentin [Neurontin 300 mg Capsule] 600 mg PO DAILY capsule 03/07/16 Oxycodone HCl/Acetaminophen [Percocet 5-325 mg Tablet] 1 - 2 tab PO ASDIR PRN # 45 tablet 12/05/16 Sulfamethoxazole/Trimethoprim [Bactrim Ds Tablet] 2 each PO BID #14 tablet 12/05 Allergies/Adverse Reactions: No Known Allergies Allergy (Verified 11/29/16 17:29) Review of Systems Constitutional: ABSENT: chills, fever(s), headache(s), weight gain, weight loss Eyes: ABSENT: visual disturbances Ears: ABSENT: hearing changes Cardiovascular: ABSENT: chest pain, dyspnea on exertion, edema, orthropnea, palpitations Respiratory: ABSENT: cough, hemoptysis Gastrointestinal: ABSENT: abdominal pain, constipation, diarrhea, hematemesis, hematochezia, nausea, vomiting Genitourinary: ABSENT: dysuria, hematuria Musculoskeletal: ABSENT: joint swelling Integumentary: ABSENT: rash, wounds Neurological: ABSENT: abnormal gait, abnormal speech, confusion, dizziness, focal weakness, syncope Psychiatric: ABSENT: anxiety, depression, homidical ideation, suicidal ideation Endocrine: ABSENT: cold intolerance, heat intolerance, polydipsia, polyuria Hematologic/Lymphatic: ABSENT: easy bleeding, easy bruising Physical Exam Vital Signs: Temp Pulse Resp BP Pulse Ox 98.2 F 89 18 106/56 L 94 12/06/16 00:50 12/06/16 00:50 12/06/16 00:50 12/06/16 00:50 12/06/16 04:40 Pulse Oximeter Continuous Start: 12/05/16 20: 50 Freq: RTQ4 Status: Active Document 12/06/16 04:40 [facility] (Rec: 12/06/16 05:25 [facility]LO [email or web address]) Pulse Oximetry Assessment Oxygen Saturation (92-100) 94 Oxygen Flow Rate (L/min) 2 Oxygen Delivery Method Nasal Cannula Fraction of Inspired Oxygen (FIO2) 28 Equipment Usage Equipment in Use Continuous SpO2 Machine # 14 Intake & Output 12/04/16 12/05/16 12/06/16 11:59 11:59 11:59 Intake Total 4060 Output Total 3095 Balance 965 Weight 131 kg General appearance: PRESENT: no acute distress, cooperative, morbidly obese Head exam: PRESENT: atraumatic, normocephalic Eye exam: PRESENT: conjunctiva pink, EOMI, PERRLA. ABSENT: scleral icterus Ear exam: PRESENT: normal external ear exam Mouth exam: PRESENT: moist, tongue midline Neck exam: ABSENT: carotid bruit, JVD, lymphadenopathy, thyromegaly Respiratory exam: PRESENT: clear to auscultation lis. ABSENT: rales, rhonchi, wheezes Cardiovascular exam: PRESENT: RRR. ABSENT: diastolic murmur, rubs, systolic murmur Pulses: PRESENT: normal dorsalis pedis pul Vascular exam: PRESENT: normal capillary refill GI/Abdominal exam: PRESENT: normal bowel sounds, soft. ABSENT: distended, guarding, mass, organolmegaly, rebound, tenderness Rectal exam: PRESENT: deferred Extremities exam: PRESENT: full ROM, other - Left leg wrapped in dry with a functioning drain in place. ABSENT: calf tenderness, clubbing, pedal edema Neurological exam: PRESENT: alert, awake, oriented to person, oriented to place , oriented to time, oriented to situation, CN II-XII grossly intact. ABSENT: motor sensory deficit Psychiatric exam: PRESENT: appropriate affect, normal mood. ABSENT: homicidal ideation, suicidal ideation Skin exam: PRESENT: dry, intact, warm. ABSENT: cyanosis, rash Results Laboratory Results: 12/06/16 04:13 12/06/16 01:03 12/05/16 12/06/16 12/06/16 13:44 01:03 01:03 WBC 12.9 H RBC 3.34 L Hgb 10.0 L Hct 30.7 L MCV 92 MCH 29.9 MCHC 32.5 RDW 15.9 H Plt Count 194 Seg Neutrophils % 75.2 Lymphocytes % 12.8 L Monocytes % 10.2 Eosinophils % 1.3 Basophils % 0.5 Absolute Neutrophils 9.7 H Absolute Lymphocytes 1.7 Absolute Monocytes 1.3 Absolute Eosinophils 0.2 Absolute Basophils 0.1 Sodium 137.9 Potassium 5.1 H 6.2 H* D Chloride 100 Carbon Dioxide 23 Anion Gap 15 BUN 49 H Creatinine 8.76 H Est GFR ( Amer) 7 L Est GFR (Non-Af Amer) 6 L Glucose 73 L 176 H Calcium 8.6 12/06/16 04:13 WBC 12.8 H RBC 3.38 L Hgb 10.0 L Hct 31.0 L MCV 92 MCH 29.4 MCHC 32.1 RDW 15.8 H Plt Count 212 Seg Neutrophils % 76.6 Lymphocytes % 10.2 L Monocytes % 11.6 Eosinophils % 1.1 Basophils % 0.5 Absolute Neutrophils 9.8 H Absolute Lymphocytes 1.3 Absolute Monocytes 1.5 H Absolute Eosinophils 0.1 Absolute Basophils 0.1 Sodium Potassium Chloride Carbon Dioxide Anion Gap BUN Creatinine Est GFR ( Amer) Est GFR (Non-Af Amer) Glucose Calcium Assessment & Plan - Diagnosis (1) End stage renal failure on dialysis Is this a current diagnosis for this admission?: YesPlan: Avoiding fluid overload, nephrology consultation (2) Hyperkalemia Is this a current diagnosis for this admission?: YesPlan: Kayexalate and lactulose with nephrology consult and reevaluation of chemistry (3) Hypotension (arterial) Qualifiers: Hypotension type: other hypotension type Qualified Code(s): I95.89 - Other hypotension Is this a current diagnosis for this admission?: YesPlan: Limit narcotics when necessary Narcan, when necessary IV fluid bolus - Time Time Spent: 30 to 50 Minutes
[2016-12-06] MEDS: CLINDAMYCIN 600 MG/D5W RTU 50 ML IV SCH ×3 (06:09→21:42)
[2016-12-06] MEDS: HEPARIN SOD (PORCINE) 5,000 UNIT/ML 1 ML SYRINGE SUBCUT SCH ×3 (06:09→21:42)
--- NOTE | 2016-12-06 07:20 | PDOC PROGRESS REPORT ---
Subjective Progress Note for:: 12/06/16 Subjective:: Patient seen and evaluated this morning. Does complain of pain unfortunately patient required Narcan last evening and was evaluated by the hospital's. Patient's respiratory status has improved. Physical Exam Vital Signs: Temp Pulse Resp BP Pulse Ox 98.2 F 89 18 106/56 L 94 12/06/16 00:50 12/06/16 00:50 12/06/16 00:50 12/06/16 00:50 12/06/16 04:40 Pulse Oximeter Continuous Start: 12/05/16 20: 50 Freq: RTQ4 Status: Active Document 12/06/16 04:40 KLO (Rec: 12/06/16 05:25 KLO [email or web address]) Pulse Oximetry Assessment Oxygen Saturation (92-100) 94 Oxygen Flow Rate (L/min) 2 Oxygen Delivery Method Nasal Cannula Fraction of Inspired Oxygen (FIO2) 28 Equipment Usage Equipment in Use Continuous SpO2 Machine # 14 Intake & Output 12/05/16 12/06/16 12/07/16 06:59 06:59 06:59 Intake Total 4060 Output Total 3095 Balance 965 Weight 131 kg Musculoskeletal exam: PRESENT: other - Left below knee amputation: Dressing clean/dry/intact. Drain intact. Intact flexion extension of the knee. Results Laboratory Results: 12/06/16 04:13 12/06/16 01:03 12/05/16 12/06/16 12/06/16 13:44 01:03 01:03 WBC 12.9 H RBC 3.34 L Hgb 10.0 L Hct 30.7 L MCV 92 MCH 29.9 MCHC 32.5 RDW 15.9 H Plt Count 194 Seg Neutrophils % 75.2 Lymphocytes % 12.8 L Monocytes % 10.2 Eosinophils % 1.3 Basophils % 0.5 Absolute Neutrophils 9.7 H Absolute Lymphocytes 1.7 Absolute Monocytes 1.3 Absolute Eosinophils 0.2 Absolute Basophils 0.1 Sodium 137.9 Potassium 5.1 H 6.2 H* D Chloride 100 Carbon Dioxide 23 Anion Gap 15 BUN 49 H Creatinine 8.76 H Est GFR ( Amer) 7 L Est GFR (Non-Af Amer) 6 L Glucose 73 L 176 H Calcium 8.6 12/06/16 04:13 WBC 12.8 H RBC 3.38 L Hgb 10.0 L Hct 31.0 L MCV 92 MCH 29.4 MCHC 32.1 RDW 15.8 H Plt Count 212 Seg Neutrophils % 76.6 Lymphocytes % 10.2 L Monocytes % 11.6 Eosinophils % 1.1 Basophils % 0.5 Absolute Neutrophils 9.8 H Absolute Lymphocytes 1.3 Absolute Monocytes 1.5 H Absolute Eosinophils 0.1 Absolute Basophils 0.1 Sodium Potassium Chloride Carbon Dioxide Anion Gap BUN Creatinine Est GFR ( Amer) Est GFR (Non-Af Amer) Glucose Calcium Assessment & Plan - Diagnosis (1) Below knee amputation status Is this a current diagnosis for this admission?: YesPlan: Status post revision left below knee amputation At this point patient required Narcan and given his multiple comorbidities along with hypertension and hyperkalemia I have recommend these could normalize before discharge. Patient was seen and evaluated by the hospitalist appreciated consultation input. We will continue to monitor patient's cultures. Intraoperative there is no sign of infection but patient is on antibiotics prophylactically. Once labs remained days normalize patient stable from a medical standpoint he will be okay for discharge to home likely with home health.
--- NOTE | 2016-12-06 09:44 | EKG REPORT ---
SEVERITY:- ABNORMAL ECG - SINUS RHYTHM FIRST DEGREE AV BLOCK : Confirmed by: Paulina Bradley 06-Dec-2016 09:43:37
[2016-12-06] MEDS: LANSOPRAZOLE 30 MG TAB.RAP.DR PO SCH ×2 (11:25→17:08)
[2016-12-06] MEDS: OXYCODONE-ACETAMINOPHEN 5-325 MG TABLET PO PRN (12:22)
[2016-12-06] MEDS: CLOPIDOGREL BISULFATE 75 MG TABLET PO SCH (12:23)
[2016-12-06] MEDS: ATORVASTATIN CALCIUM 10 MG TABLET PO SCH (12:23)
[2016-12-06] MEDS: GABAPENTIN 300 MG CAPSULE PO SCH (12:23)
[2016-12-06] MEDS: DOCUSATE SODIUM 100 MG CAPSULE PO SCH (12:24)
--- NOTE | 2016-12-06 16:46 | PDOC PROGRESS REPORT ---
Subjective Progress Note for:: 12/06/16 Subjective:: Patient denies any complaints. Physical Exam Vital Signs: Temp Pulse Resp BP Pulse Ox 98.2 F 89 18 106/56 L 92 12/06/16 00:50 12/06/16 00:50 12/06/16 00:50 12/06/16 00:50 12/06/16 16:00 Pulse Oximeter Continuous Start: 12/05/16 20: 50 Freq: RTQ4 Status: Active Document 12/06/16 16:00 [facility] (Rec: 12/06/16 16:36 [facility] [email or web address]) Pulse Oximetry Assessment Oxygen Saturation (92-100) 92 Oxygen Delivery Method Room Air Equipment Usage Equipment in Use Continuous SpO2 Machine # [id number] Intake & Output 12/05/16 12/06/16 12/07/16 06:59 06:59 06:59 Intake Total 4060 440 Output Total 3095 Balance 965 440 Weight 131 kg General appearance: PRESENT: no acute distress Eye exam: PRESENT: conjunctiva pink. ABSENT: scleral icterus Extremities exam: PRESENT: other - Patient has a ulcer on the right heel. Left stump has dressing in place Results Laboratory Results: 12/06/16 04:13 12/06/16 01:03 12/06/16 12/06/16 12/06/16 01:03 01:03 04:13 WBC 12.9 H 12.8 H RBC 3.34 L 3.38 L Hgb 10.0 L 10.0 L Hct 30.7 L 31.0 L MCV 92 92 MCH 29.9 29.4 MCHC 32.5 32.1 RDW 15.9 H 15.8 H Plt Count 194 212 Seg Neutrophils % 75.2 76.6 Lymphocytes % 12.8 L 10.2 L Monocytes % 10.2 11.6 Eosinophils % 1.3 1.1 Basophils % 0.5 0.5 Absolute Neutrophils 9.7 H 9.8 H Absolute Lymphocytes 1.7 1.3 Absolute Monocytes 1.3 1.5 H Absolute Eosinophils 0.2 0.1 Absolute Basophils 0.1 0.1 Sodium 137.9 Potassium 6.2 H* D Chloride 100 Carbon Dioxide 23 Anion Gap 15 BUN 49 H Creatinine 8.76 H Est GFR ( Amer) 7 L Est GFR (Non-Af Amer) 6 L Glucose 176 H Calcium 8.6 12/05/16 18:23 Bone - Left Leg Gram Stain - Final Assessment & Plan - Diagnosis (1) Below knee amputation status Is this a current diagnosis for this admission?: YesPlan: Patient has done well with surgery. (2) Hyperkalemia Is this a current diagnosis for this admission?: YesPlan: Patient has chronic renal failure. He has received Kayexalate and had dialysis today. (3) End stage renal failure on dialysis Is this a current diagnosis for this admission?: YesPlan: Patient normally gets dialysis on Sunday and Saturdays. He had dialysis today because of his hyperkalemia. We'll discuss with Dr. Young whether the patient should have dialysis tomorrow or just wait and do his regular dialysis on Sunday. (4) Coronary artery disease Qualifiers: Coronary Disease-Associated Artery/Lesion type: [place] artery [place] vs. transplanted heart: [place] heart Associated angina: angina presence unspecified Qualified Code(s): I25.10 - Atherosclerotic heart disease of [place] coronary artery without angina pectoris Is this a current diagnosis for this admission?: Yes (5) Diabetes Qualifiers: Diabetes mellitus type: type 2 Diabetes mellitus complication status: with unspecified complications Qualified Code(s): E11.8 - Type 2 diabetes mellitus with unspecified complications; Z79.4 - half-way (current) use of insulin Is this a current diagnosis for this admission?: Yes (6) Diabetic ulcer of heel Is this a current diagnosis for this admission?: YesPlan: We'll do wet-to-dry dressings while hospitalized to the right heel ulcer. (7) Hypotension (arterial) Qualifiers: Hypotension type: other hypotension type Qualified Code(s): I95.89 - Other hypotension Is this a current diagnosis for this admission?: YesPlan: This was secondary to narcotics and responded to Narcan last night. He has had no further problems. - Time Time Spent with patient: 15-24 minutes - Inpatient Certification Medical Necessity: Need Close Monitoring Due to Risk of Patient Decompensation
--- NOTE | 2016-12-06 17:21 | PDOC CONSULTATION ---
Consultation Consult Date: 12/06/16 Consult reason:: Hemodialysis in the setting of ESRD and hyperkalemia History of Present Illness Admission Date/PCP: 12/06/16 12:30 JOHNNY MCALLISTER History of Present Illness: Mrs. Jl Henning is a 61 years old male with a history of long-standing complicated diabetes mellitus, hypertension, ESRD on hemodialysis was brought in for debridement and and revision of his left BKA. He says it has been giving him some pain over the last few months and was seen by Dr. Hernandez orthopedic surgeon who had done his left BKA last February. He has been taken to the OR for debridement and revision. Presently seen on dialysis and doing well. He denies any history of chest pain shortness of breath nausea nausea vomiting denies any history of fever chills or riders. Cannot recall any redness or discharge from his BKA stump. Obviously the pain was preventing him from using a prosthetic.History of severe noncompliance with diet and medications Past Medical History Cardiac Medical History: Reports: Coronary Artery Disease, Heart Murmur, Hyperlipidemia, Hypertension-primary, Myocardial Infarction Denies: Atrial Fibrillation, Peripheral Vascular Disease, Pulmonary Embolism Pulmonary Medical History: Reports: Bronchitis, Pneumonia, Respiratory Failure, Sleep Apnea Denies: Asthma, Chronic Obstructive Pulmonary Disease (COPD) Neurological Medical History: Denies: Seizures Endocrine Medical History: Reports: Diabetes Mellitus Type 2 Denies: Hyperthyroidism, Hypothyroidism Renal/ Medical History: Reports: End Stage Renal Disease Denies: Benign Prostatic Hyperplasia Malignancy Medical History: Denies: Breast Cancer, Cervical Cancer, Leukemia, Lung Cancer, Ovarian Cancer GI Medical History: Reports: Gastroesophageal Reflux Disease Denies: Crohn's Disease, Hepatitis, Hiatal Hernia Musculoskeltal Medical History: Reports: Arthritis, Rheumatoid Arthritis Denies: Fibromyalgia, Systemic Lupus Erythematosus Psychiatric Medical History: Reports: Depression, Post Traumatic Stress Disorder Denies: Bipolar Disorder Infectious Medical History: 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 Denies: HIV Hematology Medical History: Reports Anemia of Chronic Kidney Disease Past Surgical History Past Surgical History: Reports: Colostomy - reversed, Orthopedic Surgery - Left rotator cuff x2, right rotator cuff x1, Tonsillectomy Denies: Appendectomy, Cholecystectomy, Coronary Artery Bypass Graft, Gastric Bypass Surgery, Herniorrhaphy, Pacemaker Social History Lives with: Family Smoking Status: Unknown if Ever Smoked Frequency of Alcohol Use: None Hx Recreational Drug Use: No Drugs: None Hx Prescription Drug Abuse: No - Advance Directive Resuscitation Status: Full Code Family History Parental Family History Reviewed: Yes - Negative for ESRD. Children Family History Reviewed: No Sibling(s) Family History Reviewed.: No Medication/Allergy Home Medications: Atorvastatin Calcium 10 mg PO DAILY 12/07/15 Clopidogrel Bisulfate [Clopidogrel] 75 mg PO DAILY 12/07/15 Omeprazole 40 mg PO BID 12/07/15 Gabapentin [Neurontin 300 mg Capsule] 600 mg PO DAILY capsule 03/07/16 Oxycodone HCl/Acetaminophen [Percocet 5-325 mg Tablet] 1 - 2 tab PO ASDIR PRN # 45 tablet 12/05/16 Sulfamethoxazole/Trimethoprim [Bactrim Ds Tablet] 2 each PO BID #14 tablet 12/05 Allergies/Adverse Reactions: No Known Allergies Allergy (Verified 11/29/16 17:29) Review of Systems Review of Systems: Constitutional: PRESENT: as per HPI. ABSENT: chills, fever(s), headache(s), weight gain, weight loss Eyes: ABSENT: visual disturbances Ears: ABSENT: hearing changes Cardiovascular: ABSENT: chest pain, edema, orthropnea, palpitations Respiratory: ABSENT: cough, hemoptysis Gastrointestinal: ABSENT: abdominal pain, constipation, diarrhea, hematemesis, hematochezia, nausea, vomiting Genitourinary: ABSENT: dysuria, hematuria Musculoskeletal: ABSENT: joint swelling Integumentary: ABSENT: rash, wounds Neurological: ABSENT: abnormal gait, abnormal speech, confusion, dizziness, focal weakness, syncope Psychiatric: ABSENT: homicidal ideation, suicidal ideation Endocrine: ABSENT: cold intolerance, heat intolerance, menstrual abnormalities, polydipsia, polyuria Hematologic/Lymphatic: ABSENT: easy bleeding, easy bruising, lymphadenopathy Physical Exam Vital Signs: Temp Pulse Resp BP Pulse Ox 98.8 F 99 16 99/47 L 90 L 12/06/16 17:01 12/06/16 17:01 12/06/16 17:01 12/06/16 17:01 12/06/16 17:01 Pulse Oximeter Continuous Start: 12/05/16 20: 50 Freq: RTQ4 Status: Complete Document 12/06/16 16:00 [facility] (Rec: 12/06/16 16:36 DS [email or web address]) Pulse Oximetry Assessment Oxygen Saturation (92-100) 92 Oxygen Delivery Method Room Air Equipment Usage Equipment in Use Continuous SpO2 Machine # [id number] Intake & Output 12/05/16 12/06/16 12/07/16 06:59 06:59 06:59 Intake Total 4060 440 Output Total 3095 Balance 965 440 Weight 131 kg General appearance: PRESENT: no acute distress Eye exam: PRESENT: conjunctiva pink, EOMI, PERRLA. ABSENT: nystagmus, periorbital swelling Mouth exam: PRESENT: moist, neck supple Neck exam: ABSENT: lymphadenopathy, meningismus, tenderness, thyromegaly, tracheal deviation Respiratory exam: PRESENT: clear to auscultation lis. ABSENT: crackles, rhonchi Cardiovascular exam: PRESENT: +S1, +S2, systolic murmur GI/Abdominal exam: PRESENT: soft. ABSENT: distended, firm, guarding, tenderness Extremities exam: PRESENT: +1 edema Neurological exam: PRESENT: alert, awake, oriented to person, oriented to place , oriented to time. ABSENT: aphasic Psychiatric exam: PRESENT: flat affect Skin exam: ABSENT: cyanosis, erythema, mottled, rash Results Laboratory Results: 12/06/16 04:13 12/06/16 01:03 12/06/16 12/06/16 12/06/16 01:03 01:03 04:13 WBC 12.9 H 12.8 H RBC 3.34 L 3.38 L Hgb 10.0 L 10.0 L Hct 30.7 L 31.0 L MCV 92 92 MCH 29.9 29.4 MCHC 32.5 32.1 RDW 15.9 H 15.8 H Plt Count 194 212 Seg Neutrophils % 75.2 76.6 Lymphocytes % 12.8 L 10.2 L Monocytes % 10.2 11.6 Eosinophils % 1.3 1.1 Basophils % 0.5 0.5 Absolute Neutrophils 9.7 H 9.8 H Absolute Lymphocytes 1.7 1.3 Absolute Monocytes 1.3 1.5 H Absolute Eosinophils 0.2 0.1 Absolute Basophils 0.1 0.1 Sodium 137.9 Potassium 6.2 H* D Chloride 100 Carbon Dioxide 23 Anion Gap 15 BUN 49 H Creatinine 8.76 H Est GFR ( Amer) 7 L Est GFR (Non-Af Amer) 6 L Glucose 176 H Calcium 8.6 12/05/16 18:23 Bone - Left Leg Gram Stain - Final Assessment & Plan - Diagnosis (1) Below knee amputation status Is this a current diagnosis for this admission?: YesPlan: Patient in for revision and debridement of his left knee stump by Dr. Hernandez orthopedic surgeon. (2) End stage renal failure on dialysis Is this a current diagnosis for this admission?: Yes (3) Anemia Qualifiers: Anemia type: unspecified type Qualified Code(s): D64.9 - Anemia, unspecified Plan: From chronic renal disease. At this erythropoietin. 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 Orders have been placed for an appropriate 2K bath. Discussed dietary restrictions and modifications to the patient. (6) Hypertension Qualifiers: Hypertension type: essential hypertension Qualified Code(s): I10 - Essential (primary) hypertension Plan: Advised diet controlled (7) Sleep apnea syndrome Qualifiers: Sleep apnea type: unspecified type Qualified Code(s): G47.30 - Sleep apnea, unspecified
[2016-12-06] MEDS: ZOLPIDEM TARTRATE 5 MG TABLET PO SCH (21:43)
[2016-12-07] MEDS: NORMAL SALINE 1000 ML 1,000 ML IV PRN ×2 (05:27→16:04)
[2016-12-07] MEDS: CLINDAMYCIN 600 MG/D5W RTU 50 ML IV SCH ×2 (05:27→13:46)
[2016-12-07] MEDS: HEPARIN SOD (PORCINE) 5,000 UNIT/ML 1 ML SYRINGE SUBCUT SCH ×2 (05:27→13:45)
[2016-12-07 05:50] LABS: ANION GAP 14 (5-19); BLOOD UREA NITROGEN 35 mg/dL (7-20); CALCIUM 7.8 mg/dL (8.4-10.2); CARBON DIOXIDE 26 mmol/L (22-30); CHLORIDE 98 mmol/L (98-107); CREATININE RESULT 6.59 mg/dL (0.52-1.25); GLUCOSE 216 mg/dL (75-110); POTASSIUM 4.8 mmol/L (3.6-5.0)
[2016-12-07] MEDS: CLOPIDOGREL BISULFATE 75 MG TABLET PO SCH (10:22)
[2016-12-07] MEDS: ATORVASTATIN CALCIUM 10 MG TABLET PO SCH (10:22)
[2016-12-07] MEDS: DOCUSATE SODIUM 100 MG CAPSULE PO SCH (10:22)
[2016-12-07] MEDS: LANSOPRAZOLE 30 MG TAB.RAP.DR PO SCH ×2 (10:22→17:46)
[2016-12-07] MEDS: GABAPENTIN 300 MG CAPSULE PO SCH (10:23)
[2016-12-07] MEDS ORDERED: DEXTROSE 50%-WATER 25 GM/50 ML DISP.SYRIN IV PRN ×2 (11:01)
[2016-12-07] MEDS ORDERED: GLUCAGON,HUMAN RECOMB 1 MG INJ IM PRN (11:01)
[2016-12-07] MEDS ORDERED: DEXTROSE 40% GEL 15 GM TUBE PO PRN ×2 (11:01)
--- NOTE | 2016-12-07 11:01 | PDOC PROGRESS REPORT ---
Subjective Progress Note for:: 12/07/16 Subjective:: Patient denies any complaints. Physical Exam Vital Signs: Temp Pulse Resp BP Pulse Ox 98.9 F 103 H 20 108/53 L 91 L 12/06/16 20:19 12/06/16 20:19 12/06/16 20:19 12/06/16 20:19 12/06/16 20:19 Pulse Oximeter Continuous Start: 12/05/16 20: 50 Freq: RTQ4 Status: Complete Document 12/06/16 16:00 [facility] (Rec: 12/06/16 16:36 [facility] [email or web address]) Pulse Oximetry Assessment Oxygen Saturation (92-100) 92 Oxygen Delivery Method Room Air Equipment Usage Equipment in Use Continuous SpO2 Machine # [id number] Intake & Output 12/06/16 12/07/16 12/08/16 06:59 06:59 06:59 Intake Total 4060 800 Output Total 3095 0 Balance 965 800 Weight 131 kg 134.6 kg General appearance: PRESENT: no acute distress Eye exam: PRESENT: conjunctiva pink. ABSENT: scleral icterus Neck exam: ABSENT: JVD Respiratory exam: PRESENT: clear to auscultation lis. ABSENT: rales, rhonchi, wheezes Cardiovascular exam: PRESENT: RRR. ABSENT: diastolic murmur, rubs, systolic murmur GI/Abdominal exam: PRESENT: normal bowel sounds, soft. ABSENT: distended, guarding, mass, organolmegaly, rebound, tenderness Extremities exam: PRESENT: other - Dressing in place on the left BKA stump. Right heel has dressing in place on the ulcer. Neurological exam: PRESENT: alert, awake, oriented to person, oriented to place , oriented to time, oriented to situation Results Laboratory Results: 12/06/16 04:13 12/07/16 04:14 12/07/16 04:14 Sodium 138.0 Potassium 4.8 Chloride 98 Carbon Dioxide 26 Anion Gap 14 BUN 35 H Creatinine 6.59 H Est GFR ( Amer) 10 L Est GFR (Non-Af Amer) 9 L Glucose 216 H Calcium 7.8 L 12/05/16 18:23 Bone - Left Leg Gram Stain - Final Assessment & Plan - Diagnosis (1) Below knee amputation status Is this a current diagnosis for this admission?: YesPlan: Patient has done well with surgery. (2) Hyperkalemia Is this a current diagnosis for this admission?: YesPlan: Resolved. (3) End stage renal failure on dialysis Is this a current diagnosis for this admission?: YesPlan: Patient normally gets dialysis on Sunday and Saturdays. He had dialysis yesterday because of his hyperkalemia. The patient will get his next dialysis treatment on Sunday unless he is still hospitalized tomorrow. (4) Coronary artery disease Qualifiers: Coronary Disease-Associated Artery/Lesion type: [place] artery [place] vs. transplanted heart: [place] heart Associated angina: angina presence unspecified Qualified Code(s): I25.10 - Atherosclerotic heart disease of [place] coronary artery without angina pectoris Is this a current diagnosis for this admission?: YesPlan: Denies any chest pain (5) Diabetes Qualifiers: Diabetes mellitus type: type 2 Diabetes mellitus complication status: with unspecified complications Qualified Code(s): E11.8 - Type 2 diabetes mellitus with unspecified complications; Z79.4 - retirement (current) use of insulin Is this a current diagnosis for this admission?: YesPlan: Patient will be given sliding scale insulin. (6) Diabetic ulcer of heel Is this a current diagnosis for this admission?: YesPlan: We'll do wet-to-dry dressings while hospitalized to the right heel ulcer. (7) Hypotension (arterial) Qualifiers: Hypotension type: other hypotension type Qualified Code(s): I95.89 - Other hypotension Is this a current diagnosis for this admission?: YesPlan: Resolved - Time Time Spent with patient: 15-24 minutes - Plan Summary Plan Summary: The patient can be discharged from a medical standpoint whenever surgery feels that it is appropriate.
[2016-12-07] MEDS: INSULIN REG, HUMAN 100 UNIT/ML 3 ML VIAL (PYX) SUBCUT PRN ×2 (12:01→16:28)
[2016-12-07] MEDS: ACETAMINOPHEN 325 MG TABLET PO PRN (16:04)
--- NOTE | 2016-12-07 19:03 | PDOC DISCHARGE SUMMARY ---
General - Admit/Disc Date/PCP Admission Date/Primary Care Provider: 12/06/16 12:30 JOHNNY AWADIgnacio Discharge Date: 12/07/16 - Discharge Diagnosis (1) Below knee amputation status Is this a current diagnosis for this admission?: Yes - Additional Information Resuscitation Status: Full Code Discharge Diet: As Tolerated Discharge Activity: Keep Legs Elevated, No Lifting Over 10 Pounds, No Lifting/ Push/Pulling Home Medications: Atorvastatin Calcium 10 mg PO DAILY 12/07/15 Clopidogrel Bisulfate [Clopidogrel] 75 mg PO DAILY 12/07/15 Omeprazole 40 mg PO BID 12/07/15 Gabapentin [Neurontin 300 mg Capsule] 600 mg PO DAILY capsule 03/07/16 Oxycodone HCl/Acetaminophen [Percocet 5-325 mg Tablet] 1 - 2 tab PO ASDIR PRN # 45 tablet 12/05/16 Sulfamethoxazole/Trimethoprim [Bactrim Ds Tablet] 2 each PO BID #14 tablet 12/05 History of Present Illness History of Present Illness: SHARONDA SU is a 61 year old male with long-standing history of end-stage renal disease and diabetes. Patient underwent below-knee amputation in the mid part of 2015 initially had been doing well until a fall occurred on May 2016. Since that time he had increasing pain in his left stump. Ultimately an MRI was obtained demonstrating increased signal along the distal stump with fluid collection. After discussing treatment options the decision was made to proceed with irrigation and debridement of the left stump with revision amputation. Hospital Course Hospital Course: On 12/05/16 patient underwent irrigation and debridement with revision amputation of the left BKA stump intraoperative findings demonstrate no signs of infection there was a old fracture of the distal stump likely secondary to his fall which would have contributed to patient's pain. Thus revision amputation was done. Patient tolerated procedure well. Postoperatively patient developed hyperkalemia and ultimately underwent sooner dialysis which resolved patient's metabolic abnormality. Patient was seen and evaluated by nephrology and the hospitalist once his hyperkalemia resolved they found the patient stable for discharge. Patient underwent physical therapy during his hospital stay he was able to get out of bed to a chair with assistance which according to the family was essentially his baseline. He was requiring oxygen which is a chronic issue and patient takes CPAP for. After discussing options including discharge versus continued hospital stay the patient and his made the joint decision along with myself the patient was stable for discharge. We discussed risks and patient has any issues he should call my office. Physical Exam Vital Signs: Temp Pulse Resp BP Pulse Ox 99.0 F 91 16 100/51 L 98 12/07/16 16:00 12/07/16 16:00 12/07/16 16:00 12/07/16 16:00 12/07/16 17:42 Pulse Oximeter Continuous Start: 12/05/16 20: 50 Freq: RTQ4 Status: Complete Document 12/06/16 16:00 [facility] (Rec: 12/06/16 16:36 [facility] [email or web address]) Pulse Oximetry Assessment Oxygen Saturation (92-100) 92 Oxygen Delivery Method Room Air Equipment Usage Equipment in Use Continuous SpO2 Machine # [id number] Intake & Output 12/06/16 12/07/16 12/08/16 06:59 06:59 06:59 Intake Total 4060 800 Output Total 3095 0 Balance 965 800 Weight 131 kg 134.6 kg General appearance: PRESENT: no acute distress, cooperative Head exam: PRESENT: atraumatic, normocephalic Mouth exam: PRESENT: dry mucosa Respiratory exam: PRESENT: unlabored Musculoskeletal exam: PRESENT: other - Left lower extremity: Puneet wrap removed. Underlying OpSite intact no evidence of erythema or drainage. No evidence of full collection. No pain with knee range of motion. Minimal swelling. Results Laboratory Results: 12/06/16 04:13 12/07/16 04:14 12/07/16 04:14 Sodium 138.0 Potassium 4.8 Chloride 98 Carbon Dioxide 26 Anion Gap 14 BUN 35 H Creatinine 6.59 H Est GFR ( Amer) 10 L Est GFR (Non-Af Amer) 9 L Glucose 216 H Calcium 7.8 L 12/05/16 18:23 Bone - Left Leg Gram Stain - Final Plan Discharge Plan: At this point patient's metabolic at about is have resolved and he is essentially at his baseline mobility at this point he is stable for discharge. Patient is to call with questions or concerns or increasing pain, redness, swelling, temperature greater than 101.5. Discharge instructions were explained to the patient and verbalized understanding. Patient is to continue OpSite dressing until follow-up. Patient will continue Plavix as prescribed. He will undergo dialysis as scheduled on 12/09/16.
[2016-12-07 20:26] VITALS: BP 100/51
[2016-12-07] MEDS: OXYCODONE-ACETAMINOPHEN 5-325 MG TABLET PO PRN (20:55)
== END 2016-12-07 21:00 | disposition home health service (06) | DRG 474 ==
LOC: INTOOBSV 13:04 → INOR 13:04 → 4N 20:31 → OBSVTOIN 12-06 12:30
PROVIDERS: ADMIT Orthopaedic Surgery; ATTEND Orthopaedic Surgery
PROC: 0QBH0ZZ Excision of Left Tibia, Open Approach (ICD-10-PCS; 2016-12-05)
PROC: 0Y6J0Z1 Detachment at Left Lower Leg, High, Open Approach (ICD-10-PCS; principal; 2016-12-05 17:00)
PROC: 5A1D00Z (ICD-10-PCS; 2016-12-06)
DX: T87.89 Other complications of amputation stump (principal); N18.6 End stage renal disease; I12.0 Hypertensive chronic kidney disease with stage 5 chronic kidney disease or end stage renal disease; L97.419 Non-pressure chronic ulcer of right heel and midfoot with unspecified severity; M79.605 Pain in left leg; E87.5 Hyperkalemia; E11.22 Type 2 diabetes mellitus with diabetic chronic kidney disease; E11.621 Type 2 diabetes mellitus with foot ulcer; I95.89 Other hypotension; D64.9 Anemia, unspecified; G47.30 Sleep apnea, unspecified; F41.8 Other specified anxiety disorders; Z99.2 Dependence on renal dialysis; Z89.512 Acquired absence of left leg below knee; Z91.11 Patient's noncompliance with dietary regimen; Z91.14 Patient's other noncompliance with medication regimen
CPT/HCPCS: 01482; 36415; 80048; 82947; 82962; 84132; 85025; 87015; 87070; 87075; 87101; 87116; 87205; 87206; 88305; 88311; 93005; 93010; 94660; 94762; 94799; G0378; G8978-GP; G8979-GP; J0330; J1644; J1815; J2250; J2270; J2310; J2370; J2704; J3010; J3490; J7030

== ENCOUNTER 2017-01-07 15:53 | Emergency (ER) | payer MEDICARE, OTHER ==
--- NOTE | 2017-01-07 16:03 | ER Document Report ---
ED Medical Screen (RME) - General Stated Complaint: LEG PAIN Notes: Patient is a 61-year-old male presents emergency Department complaining of right leg pain. Patient states that he goes to wound care for 8 weeks for a wound on his right foot. Patient had undergone a left leg amputation for previous diabetic ulcer and infection I have greeted and performed a rapid initial assessment of this patient. A comprehensive ED assessment and evaluation of the patient, analysis of test results and completion of the medical decision making process will be conducted by additional ED providers. TRAVEL OUTSIDE OF THE [place] 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 Denies: Hx Graves' Disease, Hx Hyperthyroidism, Hx Hypothyroidism Renal/ Medical History: Reports: Hx End Stage Renal Disease, Hx Hemodialysis. Denies: Hx Benign Prostatic Hyperplasia, Hx Kidney Stones, Hx Peritoneal Dialysis Malignancy Medical History: Denies Hx Leukemia, Denies Hx Lung Cancer GI Medical History: Reports: Hx Gastroesophageal Reflux Disease, Hx Irritable Bowel, Hx Ulcer. 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 Denies: Hx Hepatitis, Hx HIV Past Surgical History: Reports: Hx Bowel Surgery - ruptured bowel, Hx Colostomy - reversed, Hx Orthopedic Surgery - Left rotator cuff x2, right rotator cuff x1 , Hx Tonsillectomy. Denies: Hx Appendectomy, Hx Cholecystectomy, Hx Coronary Artery Bypass Graft, Hx Gastric Bypass Surgery, Hx Herniorrhaphy, Hx Open Heart Surgery, Hx Pacemaker - Immunizations Hx Diphtheria, Pertussis, Tetanus Vaccination: Yes
--- NOTE | 2017-01-07 17:01 | ER Document Report ---
ED Extremity Problem, Lower - General Time seen by provider: 17:01 Mode of Arrival: Wheelchair Information source: Patient TRAVEL OUTSIDE OF THE [place] IN LAST 30 DAYS: No - HPI Patient complains to provider of: Pain - Up to right calf, Swelling, Other - Diabetic ulcer Location: Foot - Right heel Occurred: Other - Has been being treated for 8 weeks getting worse Onset/Duration: Gradual, Worse Quality of pain: Throbbing Severity: Moderate Pain Level: 4 Recent injury: No Associated symptoms: Other - Left BKA right diabetic ulcer to the heel Exacerbated by: Nothing Relieved by: Nothing <ALETHEA CARRERA - Last Filed: 01/07/17 18:51> <MOE KELLER - Last Filed: 01/07/17 21:24> - General Chief Complaint: Leg Pain Stated Complaint: LEG PAIN Notes: 61-year-old male presents to ED for complaints of right leg pain he has a diabetic ulcer to the right heel that he is getting treated at wound care center 5 days a week for the last 8 weeks. He has a left BKA. 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, Hx Hypercholesterolemia, Hx Heart Murmur Pulmonary Medical History: Reports: Hx Pneumonia, Hx Respiratory Failure, Hx Sleep Apnea EENT Medical History: Reports: None Neurological Medical History: Reports: None Endocrine Medical History: Reports: Hx Diabetes Mellitus Type 2 Renal/ Medical History: Reports: Hx End Stage Renal Disease, Hx Hemodialysis Malignancy Medical History: Reports None GI Medical History: Reports: Hx Gastroesophageal Reflux Disease, Hx Irritable Bowel, Hx Ulcer Musculoskeltal Medical History: Reports Hx Arthritis, Reports Hx Musculoskeletal Deformity - Left BKA, Reports Other - Neuropathy due to diabetes Skin Medical History: Reports Hx Cellulitis Psychiatric Medical History: Reports: Hx Depression, Hx Post Traumatic Stress Disorder Traumatic Medical History: Reports: Hx Fractures - Left ankle Infectious Medical History: 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 Past Surgical History: Reports: Hx Bowel Surgery - ruptured bowel, Hx Colostomy - reversed, Hx Orthopedic Surgery - Left rotator cuff x2, right rotator cuff x1 left BKA, Hx Tonsillectomy - Immunizations Hx Diphtheria, Pertussis, Tetanus Vaccination: Yes Hx Pneumococcal Vaccination: 12/30/11 <ALETHEA CARRERA - Last Filed: 01/07/17 18:51> Review of Systems - Review of Systems Constitutional: No symptoms reported EENT: No symptoms reported Cardiovascular: No symptoms reported Respiratory: No symptoms reported Gastrointestinal: No symptoms reported Genitourinary: No symptoms reported Male Genitourinary: No symptoms reported Musculoskeletal: Other - Left BKA Skin: Other - Right diabetics ulcer to the heel Hematologic/Lymphatic: No symptoms reported Neurological/Psychological: No symptoms reported -: Yes All other systems reviewed and negative <ALETHEA CARRERA - Last Filed: 01/07/17 18:51> Physical Exam - Vital signs Interpretation: Hypotensive - General General appearance: Appears well, Alert - HEENT Head: Normocephalic, Atraumatic Eyes: Normal Pupils: PERRL - Respiratory Respiratory status: No respiratory distress Chest status: Nontender Breath sounds: Normal Chest palpation: Normal - Cardiovascular Rhythm: Regular Heart sounds: Normal auscultation Murmur: No - Abdominal Inspection: Normal Distension: No distension Bowel sounds: Normal Tenderness: Nontender Organomegaly: No organomegaly - Back Back: Normal, Nontender - Extremities General upper extremity: Normal inspection, Nontender, Normal color, Normal ROM , Normal temperature General lower extremity: Normal inspection, Nontender, Normal color, Normal ROM , Normal temperature, Normal weight bearing. No: Mayra's sign - Neurological Neuro grossly intact: Yes Cognition: Normal Orientation: AAOx4 [place] Coma Scale Eye Opening: Spontaneous [place] Coma Scale Verbal: Oriented [place] Coma Scale Motor: Obeys Commands [place] Coma Scale Total: 15 Speech: Normal Motor strength normal: LUE, RUE, LLE, RLE Sensory: Normal - Psychological Associated symptoms: Normal affect, Normal mood - Skin Skin Temperature: Warm Skin Moisture: Dry Location of irregularity: Extremities - Diabetic ulcer large to the right heel, small discolored area to the right large toe. Large area of eschar to the right heel Irregularity with: Tenderness, Inflammation <ALETHEA CARRERA - Last Filed: 01/07/17 18:51> Course - Laboratory Result Diagrams: 01/07/17 17:18 01/07/17 17:18 - Consults Sherrell Time consulted: 18:40 Consulted provider: will come to ER - Sruthijhonathan came to the ER evaluate the patient requested a Doppler be completed on the right lower extremity. <ALETHEA CARRERA - Last Filed: 01/07/17 18:51> - Laboratory Result Diagrams: 01/07/17 17:18 01/07/17 17:18 <MOE KELLER - Last Filed: 01/07/17 21:24> - Re-evaluation Re-evalutation: 01/07/17 18:[address] Blair concerning the diabetic ulcer and elevated white count he stated that she called the general surgeon to evaluate the wound. After Sruthijhonathan came to the emergency room and evaluated the wound and requested a Doppler to the right lower extremity which has been ordered. 01/07/17 19:04 Dr Wynne stated that if doppler is negative he can be discharged home to follow up with wound care center tomorrow. (ALETHEA CARRERA) 01/07/17 21:17 Santil dressing has not been delivered to the ER and the patient and his said to put a dry dressing on his heel and his will redress it with the appropriate things at home. The venous Doppler ultrasound was negative per radiology. I will send him home with a dispense pack of hydrocodone. He will be going to the wound care clinic tomorrow. (MOE KELELR) - Vital Signs Vital signs: Temp Pulse Resp BP Pulse Ox 98.2 F 100 23 H 96/59 L 96 01/07/17 16:02 01/07/17 16:02 01/07/17 16:02 01/07/17 16:02 01/07/17 16:02 - Laboratory Laboratory results interpreted by me: 01/07/17 01/07/17 17:18 17:18 WBC 13.8 H RBC 3.42 L Hgb 10.0 L Hct 30.6 L RDW 16.2 H Seg Neutrophils % 79.4 H Lymphocytes % 10.2 L Absolute Neutrophils 10.9 H Chloride 97 L Anion Gap 23 H BUN 52 H Creatinine 7.93 H Est GFR ( Amer) 8 L Est GFR (Non-Af Amer) 7 L Glucose 297 H AST 15 L Alkaline Phosphatase 154 H - Consults Sherrell Reason for consultation: 01/07/17 18:52 Diabetic ulcer with elevated white count to right heel. (ALETHEA CARRERA) Discharge <ALETHEA CARRERA - Last Filed: 01/07/17 18:51> <MOE KELLER - Last Filed: 01/07/17 21:24> - Discharge Clinical Impression: right calf pain, chronic diabetic right heel ulcer Condition: Good Disposition: HOME, SELF-CARE Instructions: Oral Narcotic Medication ([facility]), Foot or Leg Ulcer ([facility]), Leg Pain Nonspecific ([facility]) Additional Instructions: see the wound care clinic tomorrow as planned to er any concerns Please complete the patient satisfaction survey if you get one, and return it.. If you do not receive a survey, then you can go to the [facility] website, [email or web address] and place your comments about your very good care. Thank you very much. It was a pleasure being your medical provider today. Referrals: JOHNNY MCALLISTER MD [Primary Care Provider] - Follow up as needed
[2017-01-07 17:35] LABS: ABSOLUTE BASOPHILS # (AUTO) 0.1 10^3/uL (0.0-0.2); ABSOLUTE EOSINOPHILS # (AUTO) 0.3 10^3/uL (0.0-0.6); ABSOLUTE LYMPHOCYTES (AUTO) 1.4 10^3/uL (0.5-4.7); ABSOLUTE MONOCYTES (AUTO) 1.1 10^3/uL (0.1-1.4); ABSOLUTE NEUT (AUTO) 10.9 10^3/uL (1.7-8.2); BASOPHILS % (AUTO) 0.7 % (0-2); EOSINOPHILS % (AUTO) 1.9 % (0-6); HEMATOCRIT 30.6 % (37.9-51.0); HGB HCT DIFFERENCE -0.6; LYMPHOCYTES % (AUTO) 10.2 % (13-45); MEAN CORPUSCULAR HEMOGLOBIN 29.3 pg (27.0-33.4); MEAN CORPUSCULAR HGB CONC 32.7 g/dL (32.0-36.0); MEAN CORPUSCULAR VOLUME 89 fl (80-97); MONOCYTES % (AUTO) 7.8 % (3-13); RED BLOOD COUNT 3.42 10^6/uL (4.35-5.55); RED CELL DISTRIBUTION WIDTH 16.2 % (11.5-14.0); SEGMENTED NEUTROPHILS % (AUTO) 79.4 % (42-78); WHITE BLOOD COUNT 13.8 10^3/uL (4.0-10.5)
[2017-01-07 18:03] LABS: ALANINE AMINOTRANSFERASE 27 U/L (21-72); ALBUMIN 3.9 g/dL (3.5-5.0); ALKALINE PHOSPHATASE 154 U/L (38-126); ASPARTATE AMINO TRANSFERASE 15 U/L (17-59); BILIRUBIN,TOTAL 0.5 mg/dL (0.2-1.3); BLOOD UREA NITROGEN 52 mg/dL (7-20); CALCIUM 9.1 mg/dL (8.4-10.2); CARBON DIOXIDE 23 mmol/L (22-30); CHLORIDE 97 mmol/L (98-107); CREATININE RESULT 7.93 mg/dL (0.52-1.25); GLUCOSE 297 mg/dL (75-110); POTASSIUM 4.5 mmol/L (3.6-5.0); TOTAL PROTEIN 6.9 g/dL (6.3-8.2)
[2017-01-07 18:12] LABS: ANION GAP 23 (5-19); SODIUM 142.9 mmol/L (137-145)
[2017-01-07] MEDS ORDERED: COLLAGENASE CLOSTRIDIUM HIST. OINT 30 GM TP ONE (18:46)
[2017-01-07] MEDS ORDERED: COLLAGENASE CLOSTRIDIUM HIST. OINT 30 GM ONE (21:14)
[2017-01-07] MEDS ORDERED: HYDROCODONE/ACETAMINOPHEN 5-325 MG 6 TAB/DSPK PO PRN (21:21)
[2017-01-07 22:22] VITALS: BP 107/63
== END 2017-01-07 22:23 | disposition home or self-care (01) ==
LOC: ER 15:53
DX: E11.621 Type 2 diabetes mellitus with foot ulcer (principal); L97.419 Non-pressure chronic ulcer of right heel and midfoot with unspecified severity; E11.22 Type 2 diabetes mellitus with diabetic chronic kidney disease; N18.6 End stage renal disease; D72.829 Elevated white blood cell count, unspecified; M79.661 Pain in right lower leg; I25.10 Atherosclerotic heart disease of native coronary artery without angina pectoris; I25.2 Old myocardial infarction; Z89.512 Acquired absence of left leg below knee
CPT/HCPCS: 99284; 36415; 87040; 85025; 87077; 80053; 87186; 83605; 93971; 73630; J3490; A9270

== ENCOUNTER → 2017-01-08 | Outpatient (CLI) | payer MEDICARE, OTHER ==
--- NOTE | 2017-01-07 20:34 | PDOC CONSULTATION ---
Consultation Consult Date: 01/07/17 Attending physician:: Khushi Consult reason:: Right heel wound History of Present Illness Admission Date/PCP: FAUDMO LARA NP History of Present Illness: SHARONDA SU is a 61 year old male was seen in the emergency department because of foul smell coming from his right heel wound. His had a chronic heel wound for months, being treated at the [facility] [place] with hyperbaric oxygen therapy. He is receiving topical enzymatic debridement as well. The wound was debrided sharply last Sunday. Surgery is consulted for an opinion. 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, Hyperlipidema, Heart Murmur Denies: Atrial Fibrillation, Congestive Heart Failure, Hypertension, Peripheral Vascular Disease, Pulmonary Embolism Pulmonary Medical History: Reports: Pneumonia, Respiratory Failure, Sleep Apnea Denies: Asthma, Bronchitis, Chronic Obstructive Pulmonary Disease (COPD) Neurological Medical History: Denies: Seizures Endocrine Medical History: Reports: Diabetes Mellitus Type 2 Denies: Hyperthyroidism, Hypothyroidism Renal/ Medical History: Reports: End Stage Renal Disease Malignancy Medical History: Denies: Breast Cancer, Cervical Cancer, Leukemia, Lung Cancer, Ovarian Cancer GI Medical History: Reports: Gastroesophageal Reflux Disease Denies: Crohn's Disease, Hepatitis, Hiatal Hernia Musculoskeltal Medical History: Reports: Arthritis Denies: Fibromyalgia Psychiatric Medical History: Reports: Depression, Post Traumatic Stress Disorder Denies: Bipolar Disorder Hematology: Denies: Anemia, Hemophilia, Sickle Cell Disease Infectious Medical History: 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 Denies: HIV Past Surgical History Past Surgical History: Reports: Colostomy - reversed, Orthopedic Surgery - Left rotator cuff x2, right rotator cuff x1, Tonsillectomy Denies: Appendectomy, Cholecystectomy, Coronary Artery Bypass Graft, Gastric Bypass Surgery, Herniorrhaphy, Pacemaker Social History Smoking Status: Unknown if Ever Smoked Frequency of Alcohol Use: None Hx Recreational Drug Use: No Drugs: None Hx Prescription Drug Abuse: No Family History Family History: Hypertension Parental Family History Reviewed: Yes Children Family History Reviewed: Yes Sibling(s) Family History Reviewed.: Yes Medication/Allergy Home Medications: Atorvastatin Calcium 10 mg PO DAILY 12/07/15 Clopidogrel Bisulfate [Clopidogrel] 75 mg PO DAILY 12/07/15 Omeprazole 40 mg PO BID 12/07/15 Gabapentin [Neurontin 300 mg Capsule] 600 mg PO DAILY capsule 03/07/16 Oxycodone HCl/Acetaminophen [Percocet 5-325 mg Tablet] 1 - 2 tab PO ASDIR PRN # 45 tablet 12/05/16 Sulfamethoxazole/Trimethoprim [Bactrim Ds Tablet] 2 each PO BID #14 tablet 12/05 Allergies/Adverse Reactions: No Known Allergies Allergy (Verified 01/07/17 16:03) Physical Exam General appearance: PRESENT: no acute distress GI/Abdominal exam: PRESENT: soft Extremities exam: PRESENT: other - Palpable femoral, popliteal, and dorsalis pedis pulses on the right side; Doppler right posterior tibial artery. Right heel wound 6 cm in diameter with moist dark eschar ; there is a limited perimeter of the erythematous tissue; no active drainage or cellulitis. Musculoskeletal exam: PRESENT: tenderness - The right calf is tender but not swollen Assessment & Plan - Diagnosis (1) Diabetic ulcer of heel Qualifiers: Diabetes mellitus type: type 2 Laterality: right Is this a current diagnosis for this admission?: YesPlan: Stage III right heel pressure ulceration with devitalized eschar; no evidence of acute, deteriorating infection to the foot area and all findings appear chronic. Suggestion: Resume outpatient advanced wound care, hyperbaric therapy, enzymatic treatment; will redress wound today (5) Calf tenderness Plan: New problem; does not appear to be related to right heel chronic pressure ulcer ; I have suggested we obtain a venous duplex to rule out DVT. - Time Time Spent: 30 to 50 Minutes Critical Time spent with patient: Less than 15 minutes
== END ==
LOC: RAD 15:56
PROVIDERS: ATTEND Nurse Practitioner Family
DX: E11.52 Type 2 diabetes mellitus with diabetic peripheral angiopathy with gangrene (principal)

== ENCOUNTER → 2017-01-10 | Outpatient (CLI) | payer MEDICARE, OTHER ==
[2017-01-10 16:37] LABS: ABSOLUTE BASOPHILS # (AUTO) 0.1 10^3/uL (0.0-0.2); ABSOLUTE EOSINOPHILS # (AUTO) 0.3 10^3/uL (0.0-0.6); ABSOLUTE LYMPHOCYTES (AUTO) 1.6 10^3/uL (0.5-4.7); ABSOLUTE MONOCYTES (AUTO) 1.3 10^3/uL (0.1-1.4); ABSOLUTE NEUT (AUTO) 8.5 10^3/uL (1.7-8.2); BASOPHILS % (AUTO) 0.5 % (0-2); EOSINOPHILS % (AUTO) 2.2 % (0-6); HEMATOCRIT 32.5 % (37.9-51.0); HEMOGLOBIN 10.2 g/dL (13.5-17.0); HGB HCT DIFFERENCE -1.9; LYMPHOCYTES % (AUTO) 13.5 % (13-45); MEAN CORPUSCULAR HEMOGLOBIN 27.9 pg (27.0-33.4); MEAN CORPUSCULAR HGB CONC 31.3 g/dL (32.0-36.0); MEAN CORPUSCULAR VOLUME 89 fl (80-97); MONOCYTES % (AUTO) 10.8 % (3-13); RED BLOOD COUNT 3.65 10^6/uL (4.35-5.55); RED CELL DISTRIBUTION WIDTH 16.5 % (11.5-14.0); WHITE BLOOD COUNT 11.6 10^3/uL (4.0-10.5)
[2017-01-10 16:59] LABS: BLOOD UREA NITROGEN 49 mg/dL (7-20); CALCIUM 10.1 mg/dL (8.4-10.2); CREATININE RESULT 8.78 mg/dL (0.52-1.25); GLUCOSE 67 mg/dL (75-110)
[2017-01-10 17:00] LABS: ALANINE AMINOTRANSFERASE 20 U/L (21-72); ALBUMIN 4.3 g/dL (3.5-5.0); ALKALINE PHOSPHATASE 117 U/L (38-126); ANION GAP 19 (5-19); ASPARTATE AMINO TRANSFERASE 15 U/L (17-59); BILIRUBIN,DIRECT 0.4 mg/dL (0.0-0.4); BILIRUBIN,TOTAL 0.5 mg/dL (0.2-1.3); C-REACTIVE PROTEIN 70.4 mg/L (<10.0); CARBON DIOXIDE 29 mmol/L (22-30); CHLORIDE 96 mmol/L (98-107); POTASSIUM 4.6 mmol/L (3.6-5.0); SODIUM 143.7 mmol/L (137-145); TOTAL PROTEIN 7.4 g/dL (6.3-8.2)
[2017-01-10 17:39] LABS: ERYTHROCYTE SEDIMENTATION RATE 116 mm/hr (0-20)
== END ==
LOC: WC 15:43
PROVIDERS: ATTEND Nurse Practitioner Family
DX: E11.621 Type 2 diabetes mellitus with foot ulcer (principal); L97.412 Non-pressure chronic ulcer of right heel and midfoot with fat layer exposed
CPT/HCPCS: 36415; 80053; 85025; 85652; 86140

== ENCOUNTER 2017-01-13 13:47 | Inpatient (IN) | payer MEDICARE, OTHER ==
--- NOTE | 2017-01-13 11:15 | PDOC H&P ---
History of Present Illness Admission Date/PCP: FADUMO LARA NP Patient complains of: Right foot infection History of Present Illness: SHARONDA SU is a 61 year old male patient has been seeing me for bilateral upper extremity carpal tunnel syndrome and his left below knee amputation. Has now developed an infection of his right foot which has been treated by the wound care clinic. He states the foul smell has worsened denies pain or discomfort. Denies fever chills or sweats. Recently has been started on IV antibiotics and dialysis. He states the infection started months ago that has drastically worsened over the past 2 weeks. He had an MRI on Sunday. Pain . Notes chronic numbness. 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, Hyperlipidema, Heart Murmur Denies: Atrial Fibrillation, Congestive Heart Failure, Hypertension, Peripheral Vascular Disease, Pulmonary Embolism Pulmonary Medical History: Reports: Pneumonia, Respiratory Failure, Sleep Apnea Denies: Asthma, Bronchitis, Chronic Obstructive Pulmonary Disease (COPD) Neurological Medical History: Denies: Seizures Endocrine Medical History: Reports: Diabetes Mellitus Type 2 Denies: Hyperthyroidism, Hypothyroidism Renal/ Medical History: Reports: End Stage Renal Disease Malignancy Medical History: Denies: Breast Cancer, Cervical Cancer, Leukemia, Lung Cancer, Ovarian Cancer GI Medical History: Reports: Gastroesophageal Reflux Disease Denies: Crohn's Disease, Hepatitis, Hiatal Hernia Musculoskeltal Medical History: Reports: Arthritis Denies: Fibromyalgia Psychiatric Medical History: Reports: Depression, Post Traumatic Stress Disorder Denies: Bipolar Disorder Hematology: Denies: Anemia, Hemophilia, Sickle Cell Disease Infectious Medical History: 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 Denies: HIV Past Surgical History Past Surgical History: Reports: Colostomy - reversed, Orthopedic Surgery - Left rotator cuff x2, right rotator cuff x1 left BKA, Tonsillectomy Denies: Appendectomy, Cholecystectomy, Coronary Artery Bypass Graft, Gastric Bypass Surgery, Herniorrhaphy, Pacemaker Social History Information Source: Patient Smoking Status: Never Smoker Frequency of Alcohol Use: None Hx Recreational Drug Use: No Drugs: None Hx Prescription Drug Abuse: No Family History Family History: Hypertension Parental Family History Reviewed: No Children Family History Reviewed: No Sibling(s) Family History Reviewed.: No Medication/Allergy Home Medications: Atorvastatin Calcium 10 mg PO DAILY 12/07/15 Clopidogrel Bisulfate [Clopidogrel] 75 mg PO DAILY 12/07/15 Omeprazole 40 mg PO BID 12/07/15 Gabapentin [Neurontin 300 mg Capsule] 600 mg PO DAILY capsule 03/07/16 Oxycodone HCl/Acetaminophen [Percocet 5-325 mg Tablet] 1 - 2 tab PO ASDIR PRN # 45 tablet 12/05/16 Sulfamethoxazole/Trimethoprim [Bactrim Ds Tablet] 2 each PO BID #14 tablet 12/05 Atorvastatin Calcium 10 mg PO DAILY 01/13/17 B Complex & C No.20/Folic Acid [Triphrocaps Softgel] 1 mg PO DAILY 01/13/17 Calcium Acetate [Phoslo 667 mg Capsule] 667 mg PO TID 01/13/17 Clopidogrel Bisulfate [Clopidogrel] 75 mg PO DAILY 01/13/17 Metronidazole [Flagyl 250 mg Tablet] 250 mg PO Q8 01/13/17 Promethazine HCl [Phenergan 25 mg Tablet] 25 mg PO 01/13/17 Oxycodone HCl/Acetaminophen [Percocet 5-325 mg Tablet] 1 - 2 tab PO ASDIR PRN # 25 tablet 01/15/17 Allergies/Adverse Reactions: No Known Allergies Allergy (Verified 01/07/17 16:03) Physical Exam General appearance: PRESENT: no acute distress, morbidly obese, well-developed, well-nourished Head exam: PRESENT: atraumatic, normocephalic Eye exam: PRESENT: conjunctiva pink, EOMI, PERRLA. ABSENT: scleral icterus Ear exam: PRESENT: normal external ear exam Mouth exam: PRESENT: moist, tongue midline Neck exam: PRESENT: full ROM. ABSENT: carotid bruit, JVD, lymphadenopathy, thyromegaly Respiratory exam: PRESENT: unlabored Cardiovascular exam: PRESENT: RRR. ABSENT: diastolic murmur, rubs, systolic murmur Vascular exam: PRESENT: normal capillary refill GI/Abdominal exam: PRESENT: normal bowel sounds, soft. ABSENT: distended, guarding, mass, organolmegaly, rebound, tenderness Rectal exam: PRESENT: deferred Musculoskeletal exam: PRESENT: other - Right lower extremity 6 cm x 5 cm ulceration along the calcaneus with foul smell, drainage. No tracking erythema. Patient has stocking glove decreased sensation throughout the lower extremity. Moderate erythema. Neurological exam: PRESENT: alert, awake, oriented to person, oriented to place , oriented to time, oriented to situation, CN II-XII grossly intact. ABSENT: motor sensory deficit Psychiatric exam: PRESENT: appropriate affect, normal mood. ABSENT: homicidal ideation, suicidal ideation Skin exam: PRESENT: dry, intact, warm. ABSENT: cyanosis, rash Assessment & Plan - Diagnosis (1) Acute osteomyelitis of right calcaneus Is this a current diagnosis for this admission?: YesPlan: Patient has osteomyelitis of his calcaneus on radiographs and a ulceration along the heel. Due to patient's history of previous left below knee amputation I have recommended operative intervention which includes debridement of the right foot, placement of wound VAC and admission for IV antibiotics. Plan is patient will be admitted today since he received dialysis this morning and proceed with operative intervention in the morning. Anticipate discharge Sunday or Sunday once antibiotics are set up. Risks and benefits of the surgical procedure have been explained to the patient is verbalizes understanding and consented for the procedure.
[2017-01-13 15:35] LABS: ABSOLUTE BASOPHILS # (AUTO) 0.1 10^3/uL (0.0-0.2); ABSOLUTE EOSINOPHILS # (AUTO) 0.2 10^3/uL (0.0-0.6); ABSOLUTE LYMPHOCYTES (AUTO) 1.3 10^3/uL (0.5-4.7); ABSOLUTE MONOCYTES (AUTO) 1.1 10^3/uL (0.1-1.4); ABSOLUTE NEUT (AUTO) 9.6 10^3/uL (1.7-8.2); BASOPHILS % (AUTO) 0.7 % (0-2); EOSINOPHILS % (AUTO) 1.6 % (0-6); HEMATOCRIT 29.3 % (37.9-51.0); HEMOGLOBIN 9.5 g/dL (13.5-17.0); HGB HCT DIFFERENCE -0.8; LYMPHOCYTES % (AUTO) 10.9 % (13-45); MEAN CORPUSCULAR HEMOGLOBIN 28.8 pg (27.0-33.4); MEAN CORPUSCULAR HGB CONC 32.5 g/dL (32.0-36.0); MEAN CORPUSCULAR VOLUME 89 fl (80-97); MONOCYTES % (AUTO) 8.7 % (3-13); RED BLOOD COUNT 3.31 10^6/uL (4.35-5.55); RED CELL DISTRIBUTION WIDTH 16.3 % (11.5-14.0); SEGMENTED NEUTROPHILS % (AUTO) 78.1 % (42-78); WHITE BLOOD COUNT 12.3 10^3/uL (4.0-10.5)
[2017-01-13 15:58] LABS: ANION GAP 18 (5-19); BLOOD UREA NITROGEN 17 mg/dL (7-20); C-REACTIVE PROTEIN 64.6 mg/L (<10.0); CALCIUM 9.3 mg/dL (8.4-10.2); CARBON DIOXIDE 28 mmol/L (22-30); CHLORIDE 96 mmol/L (98-107); CREATININE RESULT 3.91 mg/dL (0.52-1.25); GLUCOSE 171 mg/dL (75-110); POTASSIUM 4.2 mmol/L (3.6-5.0)
[2017-01-13 16:11] LABS: ERYTHROCYTE SEDIMENTATION RATE 116 mm/hr (0-20)
--- NOTE | 2017-01-13 17:19 | EKG REPORT ---
SEVERITY:- ABNORMAL ECG - SINUS RHYTHM FIRST DEGREE AV BLOCK : Confirmed by: Jayesh Lopez MD 13-Jan-2017 17:19:23
[2017-01-13] MEDS ORDERED: DEXTROSE 40% GEL 15 GM TUBE PO PRN ×2 (17:36)
[2017-01-13] MEDS ORDERED: INSULIN REG, HUMAN 100 UNIT/ML 3 ML VIAL (PYX) SUBCUT PRN (17:36)
[2017-01-13] MEDS ORDERED: GLUCAGON,HUMAN RECOMB 1 MG INJ IM PRN (17:36)
[2017-01-13] MEDS ORDERED: DEXTROSE 50%-WATER 25 GM/50 ML DISP.SYRIN IV PRN ×2 (17:36)
[2017-01-13] MEDS ORDERED: LANSOPRAZOLE 30 MG TAB.RAP.DR PO ONE (17:45)
--- NOTE | 2017-01-13 17:58 | PDOC CONSULTATION ---
Consultation Consult Date: 01/13/17 Attending physician:: MIKO PARISH Consult reason:: Preop clearance, medical management History of Present Illness Admission Date/PCP: 01/13/17 13:47 JOHNNY MCALLISTER MD Patient complains of: Elective debridement right foot History of Present Illness: SHARONDA SU is a 61 year old male, history of coronary artery disease, type I diabetes mellitus, obstructive sleep apnea and morbid obesity, end-stage renal disease on dialysis admitted to orthopedic surgery service for debridement of right foot wound. Patient apparently diagnosed with osteomyelitis and started on intravenous antibiotic given to dialysis. Patient also started on oral antibiotics. Patient getting total of 3 antibiotics. 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 Patient was sent to Dr. Parish for debridement. Patient denies any chest pain, shortness of breath, nausea or vomiting, chills or fever, PND or orthopnea. 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 He ambulates with a wheelchair. Consultation was made for preoperative clearance and medical management. Past Medical History Past Medical History: Medication reconciliation pending verification from the patient's pharmacist. 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, Hyperlipidema, Heart Murmur Denies: Atrial Fibrillation, Congestive Heart Failure, Hypertension, Peripheral Vascular Disease, Pulmonary Embolism Pulmonary Medical History: Reports: Pneumonia, Respiratory Failure, Sleep Apnea Denies: Asthma, Bronchitis, Chronic Obstructive Pulmonary Disease (COPD) Neurological Medical History: Denies: Seizures Endocrine Medical History: Reports: Diabetes Mellitus Type 2 Denies: Hyperthyroidism, Hypothyroidism Renal/ Medical History: Reports: End Stage Renal Disease Malignancy Medical History: Denies: Breast Cancer, Cervical Cancer, Leukemia, Lung Cancer, Ovarian Cancer GI Medical History: Reports: Gastroesophageal Reflux Disease Denies: Crohn's Disease, Hepatitis, Hiatal Hernia Musculoskeltal Medical History: Reports: Arthritis Denies: Fibromyalgia Psychiatric Medical History: Reports: Depression, Post Traumatic Stress Disorder Denies: Bipolar Disorder Hematology: Denies: Anemia, Hemophilia, Sickle Cell Disease Infectious Medical History: 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 Denies: HIV Past Surgical History Past Surgical History: Reports: Colostomy - reversed, Orthopedic Surgery - Left rotator cuff x2, right rotator cuff x1 left BKA, Tonsillectomy Denies: Appendectomy, Cholecystectomy, Coronary Artery Bypass Graft, Gastric Bypass Surgery, Herniorrhaphy, Pacemaker Social History Information Source: Patient Smoking Status: Never Smoker Frequency of Alcohol Use: None Hx Recreational Drug Use: No Drugs: None Hx Prescription Drug Abuse: No Family History Family History: Hypertension Parental Family History Reviewed: Yes Children Family History Reviewed: Yes Sibling(s) Family History Reviewed.: Yes Medication/Allergy Home Medications: Atorvastatin Calcium 10 mg PO DAILY 12/07/15 Clopidogrel Bisulfate [Clopidogrel] 75 mg PO DAILY 12/07/15 Omeprazole 40 mg PO BID 12/07/15 Gabapentin [Neurontin 300 mg Capsule] 600 mg PO DAILY capsule 03/07/16 Oxycodone HCl/Acetaminophen [Percocet 5-325 mg Tablet] 1 - 2 tab PO ASDIR PRN # 45 tablet 12/05/16 Sulfamethoxazole/Trimethoprim [Bactrim Ds Tablet] 2 each PO BID #14 tablet 12/05 Allergies/Adverse Reactions: No Known Allergies Allergy (Verified 01/07/17 16:03) Review of Systems Constitutional: PRESENT: fever(s) - Low-grade. ABSENT: chills, headache(s), weakness, weight gain, weight loss Eyes: ABSENT: visual disturbances Ears: ABSENT: hearing changes Nose, Mouth, and Throat: ABSENT: mouth pain, sore throat Cardiovascular: ABSENT: chest pain, dyspnea on exertion, edema, orthropnea, palpitations Respiratory: PRESENT: cough - Occasional. ABSENT: dyspnea, hemoptysis Gastrointestinal: ABSENT: abdominal pain, constipation, diarrhea, hematemesis, hematochezia, nausea, vomiting Genitourinary: ABSENT: difficulty urinating, dysuria, hematuria Musculoskeletal: PRESENT: other - Foot pain and right Integumentary: ABSENT: pruritus, rash, wounds Neurological: ABSENT: abnormal gait, abnormal speech, confusion, dizziness, focal weakness, syncope Psychiatric: ABSENT: anxiety, depression, homidical ideation, suicidal ideation Endocrine: ABSENT: cold intolerance, heat intolerance, polydipsia, polyuria Hematologic/Lymphatic: ABSENT: easy bleeding, easy bruising Physical Exam Vital Signs: Temp Pulse Resp BP Pulse Ox 100.1 F 95 20 94/32 L 100 01/13/17 14:56 01/13/17 14:56 01/13/17 14:56 01/13/17 14:56 01/13/17 14:56 Intake & Output 01/12/17 01/13/17 01/14/17 06:59 06:59 06:59 Weight 130 kg General appearance: PRESENT: no acute distress, obese Head exam: PRESENT: atraumatic, normocephalic Eye exam: PRESENT: conjunctiva pale, EOMI, PERRLA. ABSENT: scleral icterus Ear exam: PRESENT: normal external ear exam Mouth exam: PRESENT: moist, neck supple, tongue midline Neck exam: ABSENT: carotid bruit, JVD, lymphadenopathy, thyromegaly Respiratory exam: PRESENT: clear to auscultation lis. ABSENT: rales, rhonchi, wheezes Cardiovascular exam: PRESENT: RRR, +S1, +S2. ABSENT: diastolic murmur, gallop, rubs, systolic murmur Pulses: PRESENT: normal dorsalis pedis pul Vascular exam: PRESENT: normal capillary refill GI/Abdominal exam: PRESENT: normal bowel sounds, soft. ABSENT: distended, guarding, mass, organolmegaly, rebound, tenderness Rectal exam: PRESENT: deferred Extremities exam: PRESENT: full ROM, other - Below-knee amputation on the left. ABSENT: calf tenderness, clubbing Neurological exam: PRESENT: alert, awake, oriented to person, oriented to place , oriented to time, oriented to situation Psychiatric exam: PRESENT: appropriate affect, normal mood. ABSENT: homicidal ideation, suicidal ideation Skin exam: PRESENT: dry, warm. ABSENT: cyanosis Results Laboratory Results: 01/13/17 15:20 01/13/17 15:20 01/13/17 01/13/17 15:20 15:20 WBC 12.3 H RBC 3.31 L Hgb 9.5 L Hct 29.3 L MCV 89 MCH 28.8 MCHC 32.5 RDW 16.3 H Plt Count 283 Seg Neutrophils % 78.1 H Lymphocytes % 10.9 L Monocytes % 8.7 Eosinophils % 1.6 Basophils % 0.7 Absolute Neutrophils 9.6 H Absolute Lymphocytes 1.3 Absolute Monocytes 1.1 Absolute Eosinophils 0.2 Absolute Basophils 0.1 Sodium 142.0 Potassium 4.2 Chloride 96 L Carbon Dioxide 28 Anion Gap 18 BUN 17 Creatinine 3.91 H Est GFR ( Amer) 19 L Est GFR (Non-Af Amer) 16 L Glucose 171 H Calcium 9.3 C-Reactive Protein 64.6 H Impressions: Chest X-Ray 01/13/17 00:00 IMPRESSION: NO SIGNIFICANT RADIOGRAPHIC FINDING IN THE CHEST. Assessment & Plan - Diagnosis (1) Osteomyelitis of right foot Qualifiers: Osteomyelitis type: unspecified type Qualified Code(s): M86.9 - Osteomyelitis, unspecified Is this a current diagnosis for this admission?: Yes (2) End stage renal failure on dialysis Is this a current diagnosis for this admission?: Yes (3) Anemia Qualifiers: Anemia type: unspecified type Qualified Code(s): D64.9 - Anemia, unspecified Is this a current diagnosis for this admission?: Yes (4) Coronary artery disease Qualifiers: Coronary Disease-Associated Artery/Lesion type: [place] artery [place] vs. transplanted heart: [place] heart Associated angina: angina presence unspecified Qualified Code(s): I25.10 - Atherosclerotic heart disease of [place] coronary artery without angina pectoris Is this a current diagnosis for this admission?: Yes (5) Diabetes Qualifiers: Diabetes mellitus type: type 1 Diabetes mellitus complication status: with circulatory complication Diabetes mellitus complication detail: with other circulatory complications Qualified Code(s): E10.59 - Type 1 diabetes mellitus with other circulatory complications Is this a current diagnosis for this admission?: Yes (6) Hypertension Qualifiers: Hypertension type: essential hypertension Qualified Code(s): I10 - Essential (primary) hypertension Is this a current diagnosis for this admission?: Yes (7) Hyperlipidemia Qualifiers: Hyperlipidemia type: unspecified Qualified Code(s): E78.5 - Hyperlipidemia, unspecified (8) GERD (gastroesophageal reflux disease) Qualifiers: Esophagitis presence: without esophagitis Qualified Code(s): K21.9 - Gastro-esophageal reflux disease without esophagitis Is this a current diagnosis for this admission?: Yes (9) Obstructive sleep apnea Is this a current diagnosis for this admission?: Yes (10) Morbid obesity Qualifiers: Obesity type: unspecified obesity type Qualified Code(s): E66.01 - Morbid (severe) obesity due to excess calories Is this a current diagnosis for this admission?: Yes - Time Time Spent: 30 to 50 Minutes - Plan Summary Plan Summary: Patient will continue hemodialysis every Sunday and Sunday. We will consult nephrology if the patient remains in the hospital. In the meantime I reviewed the patient's cultures recently, he is on 2 IV antibiotics and oral antibiotic. Likely this would be ciprofloxacin. I will start him on ciprofloxacin already, history of Pseudomonas MRSA on the wound culture. There is Staphylococcus EPIDERMIDIS likewise noted. Antibiotics 4.organisms can be given to dialysis per nephrology service. In the meantime I'll put the patient on sliding scale insulin. DVT prophylaxis with Lovenox. Thank you so much for this consultation, we will follow the patient with you. In terms of the risk, patient is a class for risk which is 11% risk post operatively.
--- NOTE | 2017-01-13 18:47 | Progress Note ---
Provider Note Provider Note: History and Physical FADUMO LARA NP Patient complains of: Right foot infection History of Present Illness: SHARONDA SU is a 61 year old male patient has been seeing me for bilateral upper extremity carpal tunnel syndrome and his left below knee amputation. Has now developed an infection of his right foot which has been treated by the wound care clinic. He states the foul smell has worsened denies pain or discomfort. Denies fever chills or sweats. Recently has been started on IV antibiotics and dialysis. He states the infection started months ago that has drastically worsened over the past 2 weeks. He had an MRI on Sunday. Pain . Notes chronic numbness. 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, Hyperlipidema, Heart Murmur Denies: Atrial Fibrillation, Congestive Heart Failure, Hypertension, Peripheral Vascular Disease, Pulmonary Embolism Pulmonary Medical History: Reports: Pneumonia, Respiratory Failure, Sleep Apnea Denies: Asthma, Bronchitis, Chronic Obstructive Pulmonary Disease (COPD) Neurological Medical History: Denies: Seizures Endocrine Medical History: Reports: Diabetes Mellitus Type 2 Denies: Hyperthyroidism, Hypothyroidism Renal/ Medical History: Reports: End Stage Renal Disease Malignancy Medical History: Denies: Breast Cancer, Cervical Cancer, Leukemia, Lung Cancer, Ovarian Cancer GI Medical History: Reports: Gastroesophageal Reflux Disease Denies: Crohn's Disease, Hepatitis, Hiatal Hernia Musculoskeltal Medical History: Reports: Arthritis Denies: Fibromyalgia Psychiatric Medical History: Reports: Depression, Post Traumatic Stress Disorder Denies: Bipolar Disorder Hematology: Denies: Anemia, Hemophilia, Sickle Cell Disease Infectious Medical History: 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 Denies: HIV Past Surgical History Past Surgical History: Reports: Colostomy - reversed, Orthopedic Surgery - Left rotator cuff x2, right rotator cuff x1 left BKA, Tonsillectomy Denies: Appendectomy, Cholecystectomy, Coronary Artery Bypass Graft, Gastric Bypass Surgery, Herniorrhaphy, Pacemaker Social History Information Source: Patient Smoking Status: Never Smoker Frequency of Alcohol Use: None Hx Recreational Drug Use: No Drugs: None Hx Prescription Drug Abuse: No Family History Family History: Hypertension Parental Family History Reviewed: No Children Family History Reviewed: No Sibling(s) Family History Reviewed.: No Medication/Allergy Home Medications: Atorvastatin Calcium 10 mg PO DAILY 12/07/15 Clopidogrel Bisulfate [Clopidogrel] 75 mg PO DAILY 12/07/15 Omeprazole 40 mg PO BID 12/07/15 Gabapentin [Neurontin 300 mg Capsule] 600 mg PO DAILY capsule 03/07/16 Oxycodone HCl/Acetaminophen [Percocet 5-325 mg Tablet] 1 - 2 tab PO ASDIR PRN # 45 tablet 12/05/16 Sulfamethoxazole/Trimethoprim [Bactrim Ds Tablet] 2 each PO BID #14 tablet 12/05 Allergies/Adverse Reactions: No Known Allergies Allergy (Verified 01/07/17 16:03) Physical Exam General appearance: PRESENT: no acute distress, morbidly obese, well-developed, well-nourished Head exam: PRESENT: atraumatic, normocephalic Eye exam: PRESENT: conjunctiva pink, EOMI, PERRLA. ABSENT: scleral icterus Ear exam: PRESENT: normal external ear exam Mouth exam: PRESENT: moist, tongue midline Neck exam: PRESENT: full ROM. ABSENT: carotid bruit, JVD, lymphadenopathy, thyromegaly Respiratory exam: PRESENT: unlabored Cardiovascular exam: PRESENT: RRR. ABSENT: diastolic murmur, rubs, systolic murmur Vascular exam: PRESENT: normal capillary refill GI/Abdominal exam: PRESENT: normal bowel sounds, soft. ABSENT: distended, guarding, mass, organolmegaly, rebound, tenderness Rectal exam: PRESENT: deferred Musculoskeletal exam: PRESENT: other - Right lower extremity 6 cm x 5 cm ulceration along the calcaneus with foul smell, drainage. No tracking erythema. Patient has stocking glove decreased sensation throughout the lower extremity. Moderate erythema. Neurological exam: PRESENT: alert, awake, oriented to person, oriented to place , oriented to time, oriented to situation, CN II-XII grossly intact. ABSENT: motor sensory deficit Psychiatric exam: PRESENT: appropriate affect, normal mood. ABSENT: homicidal ideation, suicidal ideation Skin exam: PRESENT: dry, intact, warm. ABSENT: cyanosis, rash Assessment & Plan - Diagnosis (1) Acute osteomyelitis of right calcaneus Is this a current diagnosis for this admission?: YesPlan: Patient has osteomyelitis of his calcaneus on radiographs and a ulceration along the heel. Due to patient's history of previous left below knee amputation I have recommended operative intervention which includes debridement of the right foot, placement of wound VAC and admission for IV antibiotics. Plan is patient will be admitted today since he received dialysis this morning and proceed with operative intervention in the morning. Anticipate discharge Sunday or Sunday once antibiotics are set up. Risks and benefits of the surgical procedure have been explained to the patient is verbalizes understanding and consented for the procedure.
[2017-01-13] MEDS: CIPROFLOXACIN HCL 500 MG TABLET PO SCH (22:16)
[2017-01-14 06:23] LABS: ABSOLUTE BASOPHILS # (AUTO) 0.1 10^3/uL (0.0-0.2); ABSOLUTE EOSINOPHILS # (AUTO) 0.3 10^3/uL (0.0-0.6); ABSOLUTE LYMPHOCYTES (AUTO) 1.6 10^3/uL (0.5-4.7); ABSOLUTE MONOCYTES (AUTO) 1.3 10^3/uL (0.1-1.4); BASOPHILS % (AUTO) 0.7 % (0-2); EOSINOPHILS % (AUTO) 2.9 % (0-6); HEMATOCRIT 30.1 % (37.9-51.0); HEMOGLOBIN 9.8 g/dL (13.5-17.0); HGB HCT DIFFERENCE -0.7; LYMPHOCYTES % (AUTO) 14.3 % (13-45); MEAN CORPUSCULAR HEMOGLOBIN 28.6 pg (27.0-33.4); MEAN CORPUSCULAR HGB CONC 32.4 g/dL (32.0-36.0); MEAN CORPUSCULAR VOLUME 88 fl (80-97); MONOCYTES % (AUTO) 11.1 % (3-13); RED BLOOD COUNT 3.41 10^6/uL (4.35-5.55); RED CELL DISTRIBUTION WIDTH 16.3 % (11.5-14.0); WHITE BLOOD COUNT 11.3 10^3/uL (4.0-10.5)
[2017-01-14 06:43] LABS: BLOOD UREA NITROGEN 24 mg/dL (7-20); CALCIUM 9.2 mg/dL (8.4-10.2); CARBON DIOXIDE 25 mmol/L (22-30); CHLORIDE 100 mmol/L (98-107); CREATININE RESULT 5.61 mg/dL (0.52-1.25); GLUCOSE 72 mg/dL (75-110); POTASSIUM 4.1 mmol/L (3.6-5.0); SODIUM 145.7 mmol/L (137-145)
[2017-01-14 06:46] LABS: ANION GAP 21 (5-19)
[2017-01-14] MEDS ORDERED: LANSOPRAZOLE 30 MG TAB.RAP.DR PO SCH (08:00)
--- NOTE | 2017-01-14 09:27 | PDOC PROGRESS REPORT ---
Subjective Progress Note for:: 01/14/17 Subjective:: Other than pain on the foot patient voiced no complaints. No reported temperature spikes, respiratory distress, nausea or vomiting or diarrhea. No reported chills or fever by the patient. Physical Exam General appearance: PRESENT: no acute distress, cooperative, obese Head exam: PRESENT: normocephalic Eye exam: PRESENT: EOMI Mouth exam: PRESENT: moist, neck supple Neck exam: ABSENT: JVD Respiratory exam: PRESENT: clear to auscultation lis Cardiovascular exam: PRESENT: RRR. ABSENT: gallop GI/Abdominal exam: PRESENT: normal bowel sounds, soft Extremities exam: PRESENT: pedal edema, other - Below knee amputation and left, right heel dressing clean. Toe w/ dry gangrene. Assessment & Plan - Diagnosis (1) Anemia Is this a current diagnosis for this admission?: Yes (2) End stage renal failure on dialysis Is this a current diagnosis for this admission?: Yes (3) Osteomyelitis of right foot Is this a current diagnosis for this admission?: Yes (4) Hyperlipidemia Is this a current diagnosis for this admission?: Yes (5) GERD (gastroesophageal reflux disease) Is this a current diagnosis for this admission?: Yes (6) Obstructive sleep apnea Is this a current diagnosis for this admission?: Yes (7) Diabetes Is this a current diagnosis for this admission?: Yes (8) Coronary artery disease Is this a current diagnosis for this admission?: Yes (9) Hypertension Is this a current diagnosis for this admission?: Yes - Time Time Spent with patient: Less than 15 minutes - Plan Summary Plan Summary: Continue current medication and sliding scale. Continue oral antibiotic. Intravenous antibiotics can be administered through dialysis times. Continue supportive care.
[2017-01-14] MEDS ORDERED: GABAPENTIN 300 MG CAPSULE PO SCH (10:00)
--- NOTE | 2017-01-14 10:17 | Operative Report ---
Operative Report DATE OF SURGERY: 01/14/17 PREOPERATIVE DIAGNOSIS: Right Calcaneus Osteomyelitis. Diabetic Ulcer Right Foot POSTOPERATIVE DIAGNOSIS: Same OPERATION: Deep excisional debridement right calcaneus, diabetic ulcer with placement of wound VAC wound size 8 cm x 6 cm SURGEON: MIKO PANG ANESTHESIA: LMAC TISSUE REMOVED OR ALTERED: Bone and soft tissue sent for aerobic, anaerobic, AFB and fungal culture COMPLICATIONS: None ESTIMATED BLOOD LOSS: less than 25 mL PROCEDURE: Indication for above procedure: 61-year-old male with long-standing history of diabetes and advanced end-stage renal disease on dialysis who has underwent left below knee amputation in the past and currently is being treated for right diabetic foot ulcer. This ultimately followed up at my office at which point I evaluated his right diabetic foot ulcer and recommended operative deep debridement. Risks and benefits were explained to the patient he verbalized understanding consented for the procedure. Procedure in detail Procedure In Detail: Patient was seen and evaluated in the preoperative holding area. The RIGHT lower extremity was initialized and marked. Patient received 600 mg of clindamycin IV for bacterial prophylaxis once cultures obtained. Patient was taken back to the operative room where transferred to the operative table and placed under general anesthesia. Once they were adequately anesthetized a nonsterile tourniquet was placed on the lower extremity. A surgical team debriefing was performed ensuring all instrumentation was available, the surgical procedure was discussed with possible concerns reviewed. 20 mL of 50: 50 mixture of lidocaine and 0.5% Marcaine were injected locally at the ulceration site. The lower extremity was prepped with Betadine and draped in a sterile fashion. A timeout was done identifying correct patient, procedure and extremity everyone in attendance agree with this and verbalized no concerns. Swab culture was performed. Sharp excisional debridement was performed along the ulceration until good bleeding wound edges were encountered. There is no evidence of tracking abscess or deep abscess. The soft tissue was sharply excised along the ulceration through the center of the ulceration was exposed calcaneus bone. The soft tissue was sent for culture. Using a curette there was significant softening along the lateral aspect of the calcaneus no deep abscess appreciated. The exposed bone edges of the calcaneus were excised until I approached good bleeding bone. Remaining nonviable tissue was excised patient had good soft tissue bleeding. The wound was then copiously irrigated with normal saline. The tourniquet was then inflated. Benzoin was placed along the skin edges. Adaptic was placed through the center of the wound and a small wound VAC sponge was utilized and secured into position. The wound VAC was then set at continuous 75 mmHg there is no evidence of leak and I had a good seal. Tourniquet was deflated. Wound was dressed with soft roll and Puneet bandage. Sponge counts, instrument counts, needle counts counts were correct. Patient was then awoken from anesthesia. Transferred from the operating room table to the operating room stretcher. There was no intraoperative complications patient tolerated procedure well stable to PACU. Postoperative plan: Patient will continue the wound VAC until his follow-up appointment with wound care on Sunday. Plan will be for discharge to home on Sunday with home health and the wound VAC. Currently patient is receiving by mouth [facility] for his culture results and regular IV antibiotics at dialysis. Because of his advanced renal disease I will hold off on giving patient antibiotics in-house.
[2017-01-14] MEDS ORDERED: ONDANSETRON HCL INJ/PF 4 MG/2 ML SDV ONE (13:05)
[2017-01-14] MEDS ORDERED: BUPIVACAINE HCL 0.5 % INJ/PF 30 ML SDV ONE (13:05)
[2017-01-14] MEDS ORDERED: PHENYLEPHRINE HCL INJ/PF 10 MG/1 ML SDV ONE (13:05)
[2017-01-14] MEDS ORDERED: GLYCOPYRROLATE INJ 0.4 MG/2 ML VIAL ONE (13:05)
[2017-01-14] MEDS ORDERED: LIDOCAINE 1% INJ-PF (10 MG/ML) 30 ML SDV ONE (13:05)
[2017-01-14] MEDS ORDERED: CLINDAMYCIN PHOSPHATE INJ 300 MG/2 ML SDV ONE (13:05)
[2017-01-14] MEDS ORDERED: METOCLOPRAMIDE HCL INJ/PF 10 MG/2 ML SDV ONE (13:05)
[2017-01-14] MEDS: CLOPIDOGREL BISULFATE 75 MG TABLET PO SCH (14:25)
[2017-01-14] MEDS: CIPROFLOXACIN HCL 500 MG TABLET PO SCH ×2 (14:25→22:00)
[2017-01-14] MEDS: ATORVASTATIN CALCIUM 10 MG TABLET PO SCH (14:25)
[2017-01-14] MEDS ORDERED: OXYCODONE-ACETAMINOPHEN 5-325 MG TABLET PO PRN (22:32)
[2017-01-14] MEDS ORDERED: GABAPENTIN 300 MG CAPSULE PO ONE (22:45)
[2017-01-15 04:04] LABS: ABSOLUTE BASOPHILS # (AUTO) 0.1 10^3/uL (0.0-0.2); ABSOLUTE EOSINOPHILS # (AUTO) 0.3 10^3/uL (0.0-0.6); ABSOLUTE LYMPHOCYTES (AUTO) 1.6 10^3/uL (0.5-4.7); ABSOLUTE MONOCYTES (AUTO) 1.1 10^3/uL (0.1-1.4); ABSOLUTE NEUT (AUTO) 8.3 10^3/uL (1.7-8.2); BASOPHILS % (AUTO) 0.6 % (0-2); EOSINOPHILS % (AUTO) 2.3 % (0-6); HEMOGLOBIN 8.6 g/dL (13.5-17.0); HGB HCT DIFFERENCE -1.2; MEAN CORPUSCULAR HEMOGLOBIN 28.6 pg (27.0-33.4); MEAN CORPUSCULAR HGB CONC 31.9 g/dL (32.0-36.0); MEAN CORPUSCULAR VOLUME 90 fl (80-97); RED BLOOD COUNT 3.02 10^6/uL (4.35-5.55); RED CELL DISTRIBUTION WIDTH 16.5 % (11.5-14.0); SEGMENTED NEUTROPHILS % (AUTO) 73.1 % (42-78); WHITE BLOOD COUNT 11.4 10^3/uL (4.0-10.5)
[2017-01-15 04:27] LABS: BLOOD UREA NITROGEN 38 mg/dL (7-20); CALCIUM 8.8 mg/dL (8.4-10.2); CREATININE RESULT 7.83 mg/dL (0.52-1.25); GLUCOSE 188 mg/dL (75-110)
[2017-01-15 04:36] LABS: CARBON DIOXIDE 22 mmol/L (22-30); CHLORIDE 101 mmol/L (98-107); SODIUM 143.8 mmol/L (137-145)
[2017-01-15 04:40] LABS: POTASSIUM 5.5 mmol/L (3.6-5.0)
[2017-01-15 04:41] LABS: ANION GAP 21 (5-19)
--- NOTE | 2017-01-15 08:10 | PDOC PROGRESS REPORT ---
Subjective Progress Note for:: 01/15/17 Subjective:: Patient seen and evaluated this morning. No issues overnight. Pain control. Denies fever chills or sweats. Physical Exam Vital Signs: Temp Pulse Resp BP Pulse Ox 98.1 F 97 21 H 96/52 L 93 01/15/17 00:00 01/15/17 00:00 01/15/17 00:00 01/15/17 00:00 01/15/17 00:00 Intake & Output 01/14/17 01/15/17 01/16/17 06:59 06:59 06:59 Intake Total 50 790 Output Total 300 Balance 50 490 Weight 130 kg 128.7 kg Musculoskeletal exam: PRESENT: other - Right lower extremity: Wound VAC intact good seal no evidence of leakage. Intact plantar flexion/dorsiflexion. Decreased sensation chronically secondary to diabetes neuropathy Results Laboratory Results: 01/15/17 03:30 01/15/17 03:30 01/15/17 01/15/17 03:30 03:30 WBC 11.4 H RBC 3.02 L Hgb 8.6 L Hct 27.0 L MCV 90 MCH 28.6 MCHC 31.9 L RDW 16.5 H Plt Count 253 Seg Neutrophils % 73.1 Lymphocytes % 14.0 Monocytes % 10.0 Eosinophils % 2.3 Basophils % 0.6 Absolute Neutrophils 8.3 H Absolute Lymphocytes 1.6 Absolute Monocytes 1.1 Absolute Eosinophils 0.3 Absolute Basophils 0.1 Sodium 143.8 Potassium 5.5 H D Chloride 101 Carbon Dioxide 22 Anion Gap 21 H BUN 38 H Creatinine 7.83 H Est GFR ( Amer) 8 L Est GFR (Non-Af Amer) 7 L Glucose 188 H Calcium 8.8 01/13/17 15:40 Nasophary (Mrsa Only) MRSA Surveillance Culture - Final NO MRSA RECOVERED Impressions: Chest X-Ray 01/13/17 00:00 IMPRESSION: NO SIGNIFICANT RADIOGRAPHIC FINDING IN THE CHEST. Assessment & Plan - Diagnosis (1) Acute osteomyelitis of right calcaneus Is this a current diagnosis for this admission?: YesPlan: Intraoperative patient was found to have good blood flow. At this point plan will be for discharge home with home wound VAC. Patient will then follow up with wound care as scheduled on Sunday and follow up with me in 7 days. Plan will be for discharge today prior to tomorrow dialysis however patient is unable to be discharged due to discharge planning issues will receive dialysis this afternoon. Discussed discharge planning with nurse.
--- NOTE | 2017-01-15 09:04 | PDOC PROGRESS REPORT ---
Subjective Progress Note for:: 01/15/17 Subjective:: Patient voiced no complaints. Denies shortness of breath, PND or orthopnea, or any significant pain. No chest pain. Physical Exam Vital Signs: Temp Pulse Resp BP Pulse Ox 98.1 F 97 21 H 96/52 L 93 01/15/17 00:00 01/15/17 00:00 01/15/17 00:00 01/15/17 00:00 01/15/17 00:00 Intake & Output 01/14/17 01/15/17 01/16/17 06:59 06:59 06:59 Intake Total 50 790 Output Total 300 Balance 50 490 Weight 130 kg 128.7 kg General appearance: PRESENT: no acute distress, cooperative, other - Wears own BiPAP Eye exam: PRESENT: EOMI Mouth exam: PRESENT: moist, neck supple Respiratory exam: PRESENT: clear to auscultation lis Cardiovascular exam: PRESENT: RRR. ABSENT: gallop GI/Abdominal exam: PRESENT: soft. ABSENT: distended Extremities exam: PRESENT: other - Wound dressing clean, below knee amputation on the left Neurological exam: PRESENT: alert, awake, oriented to situation Skin exam: ABSENT: cyanosis Results Laboratory Results: 01/15/17 03:30 01/15/17 03:30 01/15/17 01/15/17 03:30 03:30 WBC 11.4 H RBC 3.02 L Hgb 8.6 L Hct 27.0 L MCV 90 MCH 28.6 MCHC 31.9 L RDW 16.5 H Plt Count 253 Seg Neutrophils % 73.1 Lymphocytes % 14.0 Monocytes % 10.0 Eosinophils % 2.3 Basophils % 0.6 Absolute Neutrophils 8.3 H Absolute Lymphocytes 1.6 Absolute Monocytes 1.1 Absolute Eosinophils 0.3 Absolute Basophils 0.1 Sodium 143.8 Potassium 5.5 H D Chloride 101 Carbon Dioxide 22 Anion Gap 21 H BUN 38 H Creatinine 7.83 H Est GFR ( Amer) 8 L Est GFR (Non-Af Amer) 7 L Glucose 188 H Calcium 8.8 01/13/17 15:40 Nasophary ([facility] Only) MRSA Surveillance Culture - Final NO MRSA RECOVERED Impressions: Chest X-Ray 01/13/17 00:00 IMPRESSION: NO SIGNIFICANT RADIOGRAPHIC FINDING IN THE CHEST. Assessment & Plan - Diagnosis (1) Osteomyelitis of right foot Qualifiers: Osteomyelitis type: unspecified type Is this a current diagnosis for this admission?: Yes (2) End stage renal failure on dialysis Is this a current diagnosis for this admission?: Yes (3) Anemia Qualifiers: Anemia type: unspecified type Qualified Code(s): D64.9 - Anemia, unspecified Is this a current diagnosis for this admission?: Yes (4) Coronary artery disease Qualifiers: Coronary Disease-Associated Artery/Lesion type: [place] artery [place] vs. transplanted heart: [place] heart Associated angina: without angina Qualified Code(s): I25.10 - Atherosclerotic heart disease of [place] coronary artery without angina pectoris Is this a current diagnosis for this admission?: Yes (5) Diabetes Qualifiers: Diabetes mellitus type: type 1 Diabetes mellitus complication status: with circulatory complication Diabetes mellitus complication detail: with other circulatory complications Qualified Code(s): E10.59 - Type 1 diabetes mellitus with other circulatory complications Is this a current diagnosis for this admission?: Yes (6) Hypertension Qualifiers: Hypertension type: essential hypertension Qualified Code(s): I10 - Essential (primary) hypertension Is this a current diagnosis for this admission?: Yes (7) Hyperlipidemia Qualifiers: Hyperlipidemia type: unspecified (8) GERD (gastroesophageal reflux disease) Qualifiers: Esophagitis presence: without esophagitis Is this a current diagnosis for this admission?: Yes (9) Obstructive sleep apnea Is this a current diagnosis for this admission?: Yes (10) Morbid obesity Qualifiers: Obesity type: unspecified obesity type Qualified Code(s): E66.01 - Morbid (severe) obesity due to excess calories Is this a current diagnosis for this admission?: Yes - Plan Summary Plan Summary: We will give a dose of Kayexalate now prior to discharge. Patient then can continue hemodialysis as scheduled with Dr. Young. Thank you so much for the consultation. We will sign off. Please call us when necessary. Recommend repeat potassium outpatient with primary care physician or Dr. Young.
[2017-01-15] MEDS ORDERED: SODIUM POLYSTYRENE SULFONATE 15 GM/60 ML PO ONE (09:30)
[2017-01-15] MEDS ORDERED: GABAPENTIN 300 MG CAPSULE PO SCH (10:00)
[2017-01-15] MEDS: ATORVASTATIN CALCIUM 10 MG TABLET PO SCH (10:30)
[2017-01-15] MEDS: CIPROFLOXACIN HCL 500 MG TABLET PO SCH (10:30)
[2017-01-15] MEDS: CLOPIDOGREL BISULFATE 75 MG TABLET PO SCH (10:30)
[2017-01-15 18:46] VITALS: BP 102/60
--- NOTE | 2017-01-19 12:59 | PDOC DISCHARGE SUMMARY ---
General - Admit/Disc Date/PCP Admission Date/Primary Care Provider: 01/13/17 18:47 JOHNNY MCALLISTER MD Discharge Date: 01/19/17 - Discharge Diagnosis (1) Acute osteomyelitis of right calcaneus Is this a current diagnosis for this admission?: Yes - Additional Information Resuscitation Status: Full Code Discharge Activity: Activity As Tolerated Home Medications: Atorvastatin Calcium 10 mg PO DAILY 12/07/15 Clopidogrel Bisulfate [Clopidogrel] 75 mg PO DAILY 12/07/15 Omeprazole 40 mg PO BID 12/07/15 Gabapentin [Neurontin 300 mg Capsule] 600 mg PO DAILY capsule 03/07/16 Oxycodone HCl/Acetaminophen [Percocet 5-325 mg Tablet] 1 - 2 tab PO ASDIR PRN # 45 tablet 12/05/16 Sulfamethoxazole/Trimethoprim [Bactrim Ds Tablet] 2 each PO BID #14 tablet 12/05 Atorvastatin Calcium 10 mg PO DAILY 01/13/17 B Complex & C No.20/Folic Acid [Triphrocaps Softgel] 1 mg PO DAILY 01/13/17 Calcium Acetate [Phoslo 667 mg Capsule] 667 mg PO TID 01/13/17 Clopidogrel Bisulfate [Clopidogrel] 75 mg PO DAILY 01/13/17 Metronidazole [Flagyl 250 mg Tablet] 250 mg PO Q8 01/13/17 Promethazine HCl [Phenergan 25 mg Tablet] 25 mg PO 01/13/17 Oxycodone HCl/Acetaminophen [Percocet 5-325 mg Tablet] 1 - 2 tab PO ASDIR PRN # 25 tablet 01/15/17 History of Present Illness History of Present Illness: SHARONDA SU is a 61 year old male patient has been seeing me for bilateral upper extremity carpal tunnel syndrome and his left below knee amputation. Has now developed an infection of his right foot which has been treated by the wound care clinic. He states the foul smell has worsened denies pain or discomfort. Denies fever chills or sweats. Recently has been started on IV antibiotics and dialysis. He states the infection started months ago that has drastically worsened over the past 2 weeks. He had an MRI on Sunday. Pain . Notes chronic numbness. Hospital Course Hospital Course: 61-year-old male who was a direct admit on 01/13/17 for right calcaneus osteomyelitis. Patient failed to see improvement with local debridement and wound care along with hyperbaric chamber. At that point patient was set up for operative debridement in the operating room. On 01/14/17 patient underwent debridement of the right calcaneus ulcer placement of wound VAC. Patient tolerated procedure well. He was placed back on his PO Cipro. He was then receive dialysis as scheduled the following Sunday in receive the previous antibiotics. He will continue to follow up with wound care as scheduled. He will see me in the near future for recheck. Physical Exam Vital Signs: Temp Pulse Resp BP Pulse Ox 98.5 F 84 20 102/60 94 01/15/17 18:42 01/15/17 18:42 01/15/17 18:42 01/15/17 18:42 01/15/17 18:42 General appearance: PRESENT: no acute distress, cooperative Head exam: PRESENT: atraumatic, normocephalic Eye exam: PRESENT: EOMI Mouth exam: PRESENT: moist Neck exam: PRESENT: full ROM Respiratory exam: PRESENT: unlabored GI/Abdominal exam: PRESENT: soft Musculoskeletal exam: PRESENT: other - Right lower extremity: Wound VAC intact. Good seal no evidence of leak. Intact plantar flexion/dorsiflexion. Stocking glove decreased sensation chronic in nature. Neurological exam: PRESENT: alert, awake, oriented to person, oriented to place , oriented to time, oriented to situation, CN II-XII grossly intact. ABSENT: motor sensory deficit Results Laboratory Results: 01/15/17 03:30 01/15/17 03:30 01/14/17 09:33 Foot - Right Heel Gram Stain - Final 01/13/17 20:28 Blood Blood Culture - Final NO GROWTH IN 5 DAYS 01/13/17 20:05 Blood Blood Culture - Final NO GROWTH IN 5 DAYS 01/14/17 09:26 Foot - Right Heel Gram Stain - Final 01/14/17 09:26 Foot - Right Heel Wound Culture - Final Proteus Mirabilis Mrsa (Meth Resis Staph Aureus) Enterococcus Faecalis(Group D) Corynebacterium Species Prevotella Species 01/14/17 12:28 Foot - Right Heel Gram Stain - Final 01/14/17 12:28 Foot - Right Heel Wound Culture - Final Citrobacter Freundii Proteus Mirabilis Mrsa (Meth Resis Staph Aureus) Enterococcus Faecalis(Group D) Corynebacterium Species Prevotella Species Impressions: Chest X-Ray 01/13/17 00:00 IMPRESSION: NO SIGNIFICANT RADIOGRAPHIC FINDING IN THE CHEST. Plan Discharge Plan: Patient did well postoperatively. At this point he will continue wound VAC and follow up with wound care. He will follow-up with me in 1 week for wound recheck. He will continue IV antibiotics and dialysis and by mouth Bactrim will be added given his culture results. Patient is to call with questions and concerns including increased redness, swelling, pain, temperature greater than 101.5. Patient read above instructions and understood above instructions was orthopedic clinic with stable to discharge to home.
== END 2017-01-15 19:42 | disposition home health service (06) | DRG 629 ==
LOC: UNDOADMIN 13:47 → 4N 13:47 → 5TH 01-14 08:50 → 4N 01-14 13:01
PROVIDERS: ADMIT Orthopaedic Surgery; ATTEND Orthopaedic Surgery
PROC: 0QBL0ZZ Excision of Right Tarsal, Open Approach (ICD-10-PCS; principal; 2017-01-14 08:00)
DX: E10.621 Type 1 diabetes mellitus with foot ulcer (principal); M86.171 Other acute osteomyelitis, right ankle and foot; L97.419 Non-pressure chronic ulcer of right heel and midfoot with unspecified severity; Z68.41 Body mass index [BMI] 40.0-44.9, adult; I12.0 Hypertensive chronic kidney disease with stage 5 chronic kidney disease or end stage renal disease; E10.22 Type 1 diabetes mellitus with diabetic chronic kidney disease; N18.6 End stage renal disease; I25.10 Atherosclerotic heart disease of native coronary artery without angina pectoris; E78.5 Hyperlipidemia, unspecified; K21.9 Gastro-esophageal reflux disease without esophagitis; F43.10 Post-traumatic stress disorder, unspecified; E66.01 Morbid (severe) obesity due to excess calories; G47.33 Obstructive sleep apnea (adult) (pediatric); F32.9 Major depressive disorder, single episode, unspecified; B96.4 Proteus (mirabilis) (morganii) as the cause of diseases classified elsewhere; B95.2 Enterococcus as the cause of diseases classified elsewhere; B95.62 Methicillin resistant Staphylococcus aureus infection as the cause of diseases classified elsewhere; B96.89 Other specified bacterial agents as the cause of diseases classified elsewhere; I25.2 Old myocardial infarction; Z89.512 Acquired absence of left leg below knee; Z99.2 Dependence on renal dialysis
CPT/HCPCS: 36415; 71020; 80048; 80053; 82962; 85025; 85652; 86140; 87015; 87040; 87070; 87075; 87077; 87101; 87116; 87186; 87205; 87206; 93005; 93010; J1815; J2370; J2405; J2765; J3490

== ENCOUNTER → 2017-02-09 | Outpatient (CLI) | payer MEDICARE, OTHER ==
[2017-02-09 10:35] LABS: ABSOLUTE BASOPHILS # (AUTO) 0.1 10^3/uL (0.0-0.2); ABSOLUTE EOSINOPHILS # (AUTO) 0.3 10^3/uL (0.0-0.6); ABSOLUTE LYMPHOCYTES (AUTO) 1.4 10^3/uL (0.5-4.7); ABSOLUTE MONOCYTES (AUTO) 0.9 10^3/uL (0.1-1.4); ABSOLUTE NEUT (AUTO) 6.4 10^3/uL (1.7-8.2); BASOPHILS % (AUTO) 0.7 % (0-2); EOSINOPHILS % (AUTO) 3.8 % (0-6); HEMATOCRIT 33.7 % (37.9-51.0); HEMOGLOBIN 10.8 g/dL (13.5-17.0); HGB HCT DIFFERENCE -1.3; LYMPHOCYTES % (AUTO) 15.5 % (13-45); MEAN CORPUSCULAR HEMOGLOBIN 28.8 pg (27.0-33.4); MEAN CORPUSCULAR HGB CONC 32.1 g/dL (32.0-36.0); MEAN CORPUSCULAR VOLUME 90 fl (80-97); MONOCYTES % (AUTO) 10.2 % (3-13); RED BLOOD COUNT 3.75 10^6/uL (4.35-5.55); RED CELL DISTRIBUTION WIDTH 18.1 % (11.5-14.0); SEGMENTED NEUTROPHILS % (AUTO) 69.8 % (42-78); WHITE BLOOD COUNT 9.2 10^3/uL (4.0-10.5)
[2017-02-09 11:18] LABS: ERYTHROCYTE SEDIMENTATION RATE 83 mm/hr (0-20)
== END ==
LOC: OD 09:32
PROVIDERS: ATTEND Nurse Practitioner Family
DX: E11.621 Type 2 diabetes mellitus with foot ulcer (principal)
CPT/HCPCS: 36415; 85025; 85652

== ENCOUNTER 2017-02-20 17:42 | Emergency (ER) | payer MEDICARE, OTHER ==
[2017-02-20] MEDS ORDERED: NORMAL SALINE 1000 ML 1,000 ML IV ONE (18:24)
[2017-02-20 18:25] LABS: ABSOLUTE BASOPHILS # (AUTO) 0.1 10^3/uL (0.0-0.2); ABSOLUTE EOSINOPHILS # (AUTO) 0.3 10^3/uL (0.0-0.6); ABSOLUTE LYMPHOCYTES (AUTO) 1.3 10^3/uL (0.5-4.7); ABSOLUTE MONOCYTES (AUTO) 1.2 10^3/uL (0.1-1.4); ABSOLUTE NEUT (AUTO) 8.6 10^3/uL (1.7-8.2); BASOPHILS % (AUTO) 0.7 % (0-2); EOSINOPHILS % (AUTO) 2.4 % (0-6); HEMATOCRIT 36.6 % (37.9-51.0); HEMOGLOBIN 11.7 g/dL (13.5-17.0); HGB HCT DIFFERENCE -1.5; LYMPHOCYTES % (AUTO) 11.1 % (13-45); MEAN CORPUSCULAR HEMOGLOBIN 28.9 pg (27.0-33.4); MEAN CORPUSCULAR VOLUME 90 fl (80-97); MONOCYTES % (AUTO) 10.2 % (3-13); RED BLOOD COUNT 4.06 10^6/uL (4.35-5.55); RED CELL DISTRIBUTION WIDTH 18.1 % (11.5-14.0); SEGMENTED NEUTROPHILS % (AUTO) 75.6 % (42-78); WHITE BLOOD COUNT 11.4 10^3/uL (4.0-10.5)
[2017-02-20 18:47] LABS: ALANINE AMINOTRANSFERASE 27 U/L (21-72); ALBUMIN 4.3 g/dL (3.5-5.0); ALKALINE PHOSPHATASE 144 U/L (38-126); ASPARTATE AMINO TRANSFERASE 22 U/L (17-59); BILIRUBIN,DIRECT 0.5 mg/dL (0.0-0.4); BILIRUBIN,TOTAL 0.7 mg/dL (0.2-1.3); BLOOD UREA NITROGEN 21 mg/dL (7-20); CALCIUM 9.1 mg/dL (8.4-10.2); CREATINE KINASE 50 U/L (55-170); CREATININE RESULT 3.92 mg/dL (0.52-1.25); GLUCOSE 372 mg/dL (75-110); TOTAL PROTEIN 7.4 g/dL (6.3-8.2)
[2017-02-20 18:55] LABS: ANION GAP 19 (5-19); CARBON DIOXIDE 26 mmol/L (22-30); CHLORIDE 95 mmol/L (98-107); SODIUM 139.7 mmol/L (137-145)
[2017-02-20 18:57] LABS: CREATINE KINASE MB 1.91 ng/mL (<4.55); TROPONIN I 0.014 ng/mL
--- NOTE | 2017-02-20 19:08 | EKG REPORT ---
SEVERITY:- ABNORMAL ECG - SINUS RHYTHM PAIRED VENTRICULAR PREMATURE COMPLEXES PROBABLE LEFT ATRIAL ABNORMALITY PROBABLE INFERIOR INFARCT, AGE INDETERMINATE CONSIDER ANTEROSEPTAL INFARCT BORDERLINE PROLONGED QT INTERVAL : Confirmed by: Jayesh Lopez MD 20-Feb-2017 19:07:11
--- NOTE | 2017-02-20 19:14 | ER Document Report ---
ED General - General Chief Complaint: Low Blood Pressure Stated Complaint: BLOOD PRESSURE ISSUE Notes: Patient is feeling weak, lightheaded, dizzy. His blood pressure is low. Patient is a dialysis patient on Sunday, , and Sunday dialysis who missed his dialysis on Sunday, so he had dialysis yesterday (Sunday) and again today (Sunday). Says they took off about 4 L of fluid yesterday and 5.2 L today. He noted his blood pressure at home was 63/40. Denies any nausea or vomiting or shortness of breath or chest pains, however. Has not had any fevers. Does not make any urine. TRAVEL OUTSIDE OF THE [place] 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 [employer], Hx Hypercholesterolemia, Hx Heart Murmur Pulmonary Medical History: Reports: Hx Pneumonia, Hx Respiratory Failure, Hx Sleep Apnea Endocrine Medical History: Reports: Hx Diabetes Mellitus Type 2 Renal/ Medical History: Reports: Hx End Stage Renal Disease, Hx Hemodialysis GI Medical History: Reports: Hx Gastroesophageal Reflux Disease, Hx Irritable Bowel, Hx Ulcer Musculoskeltal Medical History: Reports Hx Arthritis, Reports Hx Musculoskeletal Deformity - Left BKA Skin Medical History: Reports Hx Cellulitis Psychiatric Medical History: Reports: Hx Depression, Hx Post Traumatic Stress Disorder Traumatic Medical History: Reports: Hx Fractures - Left ankle Infectious Medical History: 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 Feels generalized weakness. EENT: Denies eye, ear, nose or mouth or throat pain or other symptoms. CARDIOVASCULAR: Denies chest pain. RESPIRATORY: Denies cough, chest congestion, or shortness of breath. GASTROINTESTINAL: Denies abdominal pain or nausea, vomiting, or diarrhea. GENITOURINARY: Does not make any urine. MUSCULOSKELETAL: Denies back or neck pain. Denies joint pain or swelling. Patient had debridement of necrotic tissue from his right ankle by Dr. Parish 3 weeks ago. SKIN: Denies rash or skin lesions. NEUROLOGICAL: Denies LOC or altered mental status. Denies headache. Denies sensory loss or motor deficits. ALL OTHER SYSTEMS REVIEWED AND NEGATIVE. Physical Exam - Vital signs Vitals: Temp Pulse Resp BP Pulse Ox 98.5 F 100 18 79/51 L 94 02/20/17 17:50 02/20/17 17:50 02/20/17 17:50 02/20/17 17:50 02/20/17 17:50 Interpretation: Hypotensive - Notes Notes: PHYSICAL EXAMINATION: GENERAL: Well-appearing, in no acute distress. HEAD: Atraumatic, normocephalic. EYES: Pupils equal round and reactive to light, extraocular movements intact. ENT: oropharynx clear without exudates. Moist mucous membranes. NECK: Normal range of motion, supple. LUNGS: Breath sounds clear and equal bilaterally. HEART: Regular rate and rhythm without murmurs. ABDOMEN: Soft, nontender. No guarding or rebound. BACK: No tenderness throughout entire back. EXTREMITIES: Normal range of motion without pain. Left BK amputation. Right lower leg in a postsurgical walking boot. NEUROLOGICAL: Normal speech, normal gait. Normal sensory, motor, and reflex exams. Awake, alert, and oriented x3. Cranial nerves normal. PSYCH: Normal mood, normal affect. SKIN: Warm, dry, no rashes. Course - Re-evaluation Re-evalutation: 02/20/17 23:54 Throughout his stay in the emergency department, patient was given incremental amounts of normal saline IV. His blood pressure gradually vera from the 70s and 80s systolic to the upper 90s and eventually crossed 100 one a couple of the latest readings for his discharge. Patient said he felt much better after a liter fluid and is blood pressure isn't reached a systolic of 102. There being no contraindication to discharging the patient, I gave him a small amount more of saline and after about a liter and a half, the IV was discontinued and patient was able to go home, feeling much better. - Vital Signs Vital signs: Temp Pulse Resp BP Pulse Ox 98.5 F 100 22 H 103/59 L 93 02/20/17 17:50 02/20/17 17:50 02/20/17 19:18 02/20/17 20:10 02/20/17 20:10 - Laboratory Result Diagrams: 02/20/17 18:15 02/20/17 18:15 Laboratory results interpreted by me: 02/20/17 02/20/17 18:15 18:15 WBC 11.4 H RBC 4.06 L Hgb 11.7 L Hct 36.6 L RDW 18.1 H Lymphocytes % 11.1 L Absolute Neutrophils 8.6 H Chloride 95 L BUN 21 H Creatinine 3.92 H Est GFR ( Amer) 19 L Est GFR (Non-Af Amer) 16 L Glucose 372 H Direct Bilirubin 0.5 H Alkaline Phosphatase 144 H Creatine Kinase 50 L - Diagnostic Test Radiology reviewed: Image reviewed, Reports reviewed - Chest x-ray shows cardiomegaly without CHF. Discharge - Discharge Clinical Impression: Hypotension Qualifiers: Hypotension type: other hypotension type Qualified Code(s): I95.89 - Other hypotension Condition: Stable Disposition: HOME, SELF-CARE Additional Instructions: Hypotension Your blood pressure was low. Low blood pressure can make you feel weak, lightheaded, and even make you pass out. Low blood pressure can be caused by dehydration or blood loss. Problems with the heart, kidneys, or blood vessels can cause hypotension. Certain medications can make your blood pressure abnormally low. Infection can lower blood pressure. In many cases, the person is totally healthy, but for unknown reasons, the blood pressure falls when they stand up. This is called benign orthostatic hypotension. The treatment of low blood pressure depends on the severity of the symptoms , and on the underlying cause. Sometimes it's not possible to identify a cause. At this time, it doesn't appear that the problem is serious enough to require hospitalization. Medicines that could be contributing to the problem can be withheld or reduced in dosage if your doctor approves. Get plenty of fluids. Eat a healthy diet. Be careful to stand up slowly. If you feel suddenly lightheaded or if your vision goes wick, sit or lie down at once. Don't drive or operate machinery until the symptoms are under control. Return or call the doctor if you develop fainting or severe dizziness, severe weakness, problems with vision, chest pain, shortness of breath, fever, or confusion. Intravenous (IV) Fluids As part of your care today, you received intravenous (IV) fluids. IV fluids are administered to patients who are dehydrated or to those who have certain chemical (electrolyte) abnormalities that need correcting. Resume your dialysis treatments as scheduled . Return for reevaluation if new or worsening symptoms develop.
[2017-02-20 20:25] VITALS: BP 103/59
== END 2017-02-20 21:04 | disposition home or self-care (01) ==
LOC: ER 17:42
DX: I95.9 Hypotension, unspecified (principal); R53.1 Weakness; R42 Dizziness and giddiness; E11.22 Type 2 diabetes mellitus with diabetic chronic kidney disease; N18.6 End stage renal disease; Z99.2 Dependence on renal dialysis; Z91.15 Patient's noncompliance with renal dialysis; I25.10 Atherosclerotic heart disease of native coronary artery without angina pectoris; I25.2 Old myocardial infarction; I51.7 Cardiomegaly; Z98.61 Coronary angioplasty status; Z98.890 Other specified postprocedural states; Z89.512 Acquired absence of left leg below knee
CPT/HCPCS: 93005; 99285; 96360; 36415; 82553; 82962; 82550; 85025; 80053; 84484; 71010; 93010; J7030

== ENCOUNTER → 2017-03-02 | Outpatient (CLI) | payer MEDICARE, OTHER ==
[2017-03-02 14:00] LABS: ABSOLUTE EOSINOPHILS # (AUTO) 0.2 10^3/uL (0.0-0.6); ABSOLUTE LYMPHOCYTES (AUTO) 1.1 10^3/uL (0.5-4.7); ABSOLUTE MONOCYTES (AUTO) 0.8 10^3/uL (0.1-1.4); ABSOLUTE NEUT (AUTO) 7.5 10^3/uL (1.7-8.2); BASOPHILS % (AUTO) 0.4 % (0-2); EOSINOPHILS % (AUTO) 1.9 % (0-6); HEMATOCRIT 35.1 % (37.9-51.0); HEMOGLOBIN 11.2 g/dL (13.5-17.0); HGB HCT DIFFERENCE -1.5; LYMPHOCYTES % (AUTO) 11.8 % (13-45); MEAN CORPUSCULAR HEMOGLOBIN 29.2 pg (27.0-33.4); MEAN CORPUSCULAR VOLUME 91 fl (80-97); MONOCYTES % (AUTO) 8.1 % (3-13); RED BLOOD COUNT 3.84 10^6/uL (4.35-5.55); RED CELL DISTRIBUTION WIDTH 18.5 % (11.5-14.0); SEGMENTED NEUTROPHILS % (AUTO) 77.8 % (42-78); WHITE BLOOD COUNT 9.7 10^3/uL (4.0-10.5)
[2017-03-02 14:33] LABS: ERYTHROCYTE SEDIMENTATION RATE 76 mm/hr (0-20)
== END ==
LOC: WC 12:52
PROVIDERS: ATTEND Nurse Practitioner Family
DX: E11.621 Type 2 diabetes mellitus with foot ulcer (principal); L97.412 Non-pressure chronic ulcer of right heel and midfoot with fat layer exposed
CPT/HCPCS: 36415; 85025; 85652

== ENCOUNTER → 2017-03-20 | Outpatient (CLI) | payer MEDICARE, OTHER ==
[2017-03-20 15:05] LABS: ABSOLUTE BASOPHILS # (AUTO) 0.1 10^3/uL (0.0-0.2); ABSOLUTE EOSINOPHILS # (AUTO) 0.2 10^3/uL (0.0-0.6); ABSOLUTE MONOCYTES (AUTO) 0.9 10^3/uL (0.1-1.4); ABSOLUTE NEUT (AUTO) 9.4 10^3/uL (1.7-8.2); BASOPHILS % (AUTO) 0.5 % (0-2); EOSINOPHILS % (AUTO) 1.4 % (0-6); HEMATOCRIT 38.1 % (37.9-51.0); HGB HCT DIFFERENCE -2.1; LYMPHOCYTES % (AUTO) 8.7 % (13-45); MEAN CORPUSCULAR HEMOGLOBIN 28.8 pg (27.0-33.4); MEAN CORPUSCULAR HGB CONC 31.5 g/dL (32.0-36.0); MEAN CORPUSCULAR VOLUME 91 fl (80-97); MONOCYTES % (AUTO) 7.4 % (3-13); RED BLOOD COUNT 4.17 10^6/uL (4.35-5.55); RED CELL DISTRIBUTION WIDTH 17.7 % (11.5-14.0); WHITE BLOOD COUNT 11.5 10^3/uL (4.0-10.5)
[2017-03-20 15:45] LABS: ERYTHROCYTE SEDIMENTATION RATE 88 mm/hr (0-20)
== END ==
LOC: OD 14:22
PROVIDERS: ATTEND Nurse Practitioner Family
DX: E11.621 Type 2 diabetes mellitus with foot ulcer (principal)
CPT/HCPCS: 36415; 83036; 85025; 85652; 86140

== ENCOUNTER → 2017-03-26 | Outpatient (CLI) | payer MEDICARE, OTHER ==
--- NOTE | 2017-03-26 15:02 | RADIOLOGY REPORT (SQ) ---
EXAM DESCRIPTION: MRI RT LOWER EXTREMITY WITHOUT COMPLETED DATE/TIME: 03/26/2017 1:53 pm REASON FOR STUDY: NON-PRS CHR ULCER OF RIGHT HEEL AND MIDFT W FAT LAYER EXPOS (L97.412) L97.412 NON -PRS CHR ULCER OF RIGHT HEEL AND MIDFT W FAT LAYE COMPARISON: MRI right lower extremity 01/08/2017, 12/01/2016, 02/18/2016 TECHNIQUE: Patient has a calcaneal ulcer. Axial coronal and sagittal T1 and STIR images through the calcaneal ulcer were performed. FINDINGS: Since the prior study, patient has developed an Achilles tendon tear, with a 3 cm gap betw een the distal tendon and the calcaneal attachment, best shown on coronal image 36 and sagittal image 9. Along the dorsal and lateral aspect of the calcaneus, there has been bony cortical destruction which is new compared to 01/18/2017. Area of cortical destruction measures about 3 x 3 cm in diameter on co karen image 30 and sagittal image 9. There is adjacent subcortical edema from osteomyelitis. An ove rlying skin ulcer with bandages is present. The plantar fascia and its attachment to a moderate size plantar calcaneal spur is intact. This is b est shown on sagittal image 9. There is diffuse subcutaneous edema over the ankle and hindfoot. 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 Os trigonum, an anatomic variant. Grossly intact posterior tibial tendons. Peroneus longus is inta ct. Longitudinal peroneus brevis tear at the level of the lateral malleolus. IMPRESSION: Progression of disease, with resorption of the bony cortex post row lateral calcaneus an d persistent marrow edema worrisome for osteomyelitis Distal Achilles tendon tear with 3 cm between the calcaneal insertion and the remainder of the Achill es tendon TECHNICAL DOCUMENTATION: JOB ID: [id number] [employer]- All Rights Reserved
== END ==
LOC: RAD 12:48
PROVIDERS: ATTEND Nurse Practitioner Family
DX: L97.412 Non-pressure chronic ulcer of right heel and midfoot with fat layer exposed (principal)

== ENCOUNTER 2017-04-20 13:09 | Inpatient (IN) | payer MEDICARE, OTHER ==
[~2017-04-20 13:09] MED LIST: VANCOMYCIN HCL 1,000 MG in DEXTROSE 5%-WATER 250 ML IV SCH
[2017-04-20 14:19] LABS: HEMATOCRIT 36.8 % (37.9-51.0); HEMOGLOBIN 11.8 g/dL (13.5-17.0); HGB HCT DIFFERENCE -1.4; MEAN CORPUSCULAR HEMOGLOBIN 29.1 pg (27.0-33.4); MEAN CORPUSCULAR HGB CONC 32.2 g/dL (32.0-36.0); MEAN CORPUSCULAR VOLUME 91 fl (80-97); RED BLOOD COUNT 4.06 10^6/uL (4.35-5.55); RED CELL DISTRIBUTION WIDTH 16.6 % (11.5-14.0); WHITE BLOOD COUNT 10.5 10^3/uL (4.0-10.5)
[2017-04-20 14:38] LABS: ANION GAP 19 (5-19); BLOOD UREA NITROGEN 49 mg/dL (7-20); CARBON DIOXIDE 23 mmol/L (22-30); CHLORIDE 97 mmol/L (98-107); CREATININE RESULT 8.09 mg/dL (0.52-1.25); GLUCOSE 242 mg/dL (75-110); SODIUM 139.2 mmol/L (137-145)
--- NOTE | 2017-04-20 16:25 | RADIOLOGY REPORT (SQ) ---
EXAM DESCRIPTION: CHEST SINGLE VIEW COMPLETED DATE/TIME: 04/20/2017 4:11 pm REASON FOR STUDY: pre op-holding 4 COMPARISON: 02/20/2017 EXAM PARAMETERS: NUMBER OF VIEWS: One view. TECHNIQUE: Single frontal radiographic view of the chest acquired. RADIATION DOSE: NA LIMITATIONS: None. FINDINGS: LUNGS AND PLEURA: No opacities, masses or pneumothorax. No pleural effusion. MEDIASTINUM AND HILAR STRUCTURES: No masses. Contour normal. HEART AND VASCULAR STRUCTURES: Cardiomegaly without CHF. BONES: No acute findings. HARDWARE: None in the chest. OTHER: No other significant finding. IMPRESSION: Cardiomegaly without CHF. TECHNICAL DOCUMENTATION: JOB ID: [id number]
[2017-04-20 18:08] VITALS: BP 97/57
--- NOTE | 2017-04-20 19:04 | PDOC DISCHARGE SUMMARY ---
General - Admit/Disc Date/PCP Admission Date/Primary Care Provider: 04/20/17 13:42 FADUMO LARA NP Discharge Date: 04/20/17 - Additional Information Home Medications: Atorvastatin Calcium 10 mg PO QHS 12/07/15 Omeprazole 40 mg PO BID 12/07/15 Calcium Acetate [Phoslo 667 mg Capsule] 667 mg PO TID 01/13/17 Clopidogrel Bisulfate [Clopidogrel] 75 mg PO DAILY 01/13/17 Insulin Lispro [Humalog] See Protocol SQ ASDIR PRN 04/19/17 Aspirin [Aspirin 81 mg Chewable Tablet] 81 mg PO QHS 04/20/17 B Complex & C No.20/Folic Acid [Triphrocaps Softgel] PO QHS 04/20/17 Clopidogrel Bisulfate [Plavix 75 mg Tablet] 75 mg PO DAILY 04/20/17 Escitalopram Oxalate [Lexapro] 20 mg PO QHS 04/20/17 Gabapentin [Neurontin 300 mg Capsule] 3 cap PO BID 04/20/17 Insulin Pump/Infus. Set/Meter [Accu-Chek Combo System] 1 each MC 04/20/17 History of Present Illness History of Present Illness: SHARONDA SU is a 61 year old male Hospital Course Hospital Course: Patient was to be set up for a below-knee amputation on the right because of calcaneal osteomyelitis. Unfortunately given his hyperkalemia he was at high risk for possible anesthetic complications and the surgery was subsequently postponed. Unfortunately given patient's dialysis he is unable to undergo operative intervention in this facility over the next 3-5 days. We discussed treatment options including transfer to another facility versus continued observation patient understands if we continue to observe and continue to get canceled he is a high risk for possible sepsis due to his calcaneal osteomyelitis after discussing these options patient will consider possible alternative facility for surgery in the meantime he will be discharged home today and take his regular dialysis tomorrow. There is one possibility of transitioning into a Sunday dialysis and then had an operative intervention on a Sunday. We will keep in contact with the patient about his alternative options. Physical Exam Vital Signs: Temp Pulse Resp BP Pulse Ox 98.2 F 74 18 97/57 L 97 04/20/17 17:42 04/20/17 17:42 04/20/17 17:42 04/20/17 17:42 04/20/17 17:42 Intake & Output 04/19/17 04/20/17 04/21/17 06:59 06:59 06:59 Intake Total 0 Balance 0 Weight 58.97 kg 131.1 kg Results Laboratory Results: 04/20/17 14:11 04/20/17 14:11 04/20/17 04/20/17 14:11 14:11 WBC 10.5 RBC 4.06 L Hgb 11.8 L Hct 36.8 L MCV 91 MCH 29.1 MCHC 32.2 RDW 16.6 H Plt Count 223 Sodium 139.2 Potassium 6.0 H* Chloride 97 L Carbon Dioxide 23 Anion Gap 19 BUN 49 H Creatinine 8.09 H Est GFR ( Amer) 8 L Est GFR (Non-Af Amer) 7 L Glucose 242 H Calcium 9.0 Impressions: Chest X-Ray 04/20/17 00:00 IMPRESSION: Cardiomegaly without CHF. Plan Discharge Plan: Patient will be contacted by my office to discuss further treatment options including alternative date of procedure with transitioning his dialysis versus different facility for his operative treatment. Patient verbalized understanding and knows if he has increasing redness swelling pain or fever he should present to the emergency room. He also has been explained the signs of sepsis which he understands at this point he is stable for discharge home and will receive dialysis tomorrow as scheduled.
--- NOTE | 2017-04-20 20:44 | EKG REPORT ---
SEVERITY:- ABNORMAL ECG - SINUS RHYTHM MOBITZ I AV BLOCK SECOND DEGREE AV BLOCK : Confirmed by: Paulina Bradley 20-Apr-2017 20:44:13
== END 2017-04-20 20:17 | disposition home or self-care (01) | DRG 539 ==
LOC: INOR 13:42 → 4S 17:24
PROVIDERS: ADMIT Orthopaedic Surgery; ATTEND Orthopaedic Surgery
DX: M86.9 Osteomyelitis, unspecified (principal); N18.6 End stage renal disease; L97.124 Non-pressure chronic ulcer of left thigh with necrosis of bone; I12.0 Hypertensive chronic kidney disease with stage 5 chronic kidney disease or end stage renal disease; Z53.09 Procedure and treatment not carried out because of other contraindication; E11.621 Type 2 diabetes mellitus with foot ulcer; I73.9 Peripheral vascular disease, unspecified; M86.371 Chronic multifocal osteomyelitis, right ankle and foot; E87.5 Hyperkalemia; G25.81 Restless legs syndrome; E11.22 Type 2 diabetes mellitus with diabetic chronic kidney disease; F41.8 Other specified anxiety disorders; Z96.41 Presence of insulin pump (external) (internal); Z99.2 Dependence on renal dialysis; Z79.4 Long term (current) use of insulin; Z79.82 Long term (current) use of aspirin; Z79.01 Long term (current) use of anticoagulants; Z79.899 Other long term (current) drug therapy; Z89.512 Acquired absence of left leg below knee
CPT/HCPCS: 36415; 71010; 80048; 82962; 85027; 93005; 93010; 99213; G0463; J3370; J7060

== ENCOUNTER 2017-04-26 14:35 | Inpatient (IN) | payer MEDICARE, OTHER ==
[2017-04-26 16:14] LABS: ABSOLUTE BASOPHILS # (AUTO) 0.1 10^3/uL (0.0-0.2); ABSOLUTE EOSINOPHILS # (AUTO) 0.2 10^3/uL (0.0-0.6); ABSOLUTE LYMPHOCYTES (AUTO) 1.3 10^3/uL (0.5-4.7); ABSOLUTE MONOCYTES (AUTO) 0.8 10^3/uL (0.1-1.4); ABSOLUTE NEUT (AUTO) 6.9 10^3/uL (1.7-8.2); EOSINOPHILS % (AUTO) 2.6 % (0-6); HEMATOCRIT 36.9 % (37.9-51.0); HEMOGLOBIN 11.7 g/dL (13.5-17.0); HGB HCT DIFFERENCE -1.8; LYMPHOCYTES % (AUTO) 13.6 % (13-45); MEAN CORPUSCULAR HEMOGLOBIN 29.1 pg (27.0-33.4); MEAN CORPUSCULAR HGB CONC 31.7 g/dL (32.0-36.0); MEAN CORPUSCULAR VOLUME 92 fl (80-97); MONOCYTES % (AUTO) 8.2 % (3-13); RED BLOOD COUNT 4.02 10^6/uL (4.35-5.55); RED CELL DISTRIBUTION WIDTH 16.1 % (11.5-14.0); SEGMENTED NEUTROPHILS % (AUTO) 74.6 % (42-78); WHITE BLOOD COUNT 9.3 10^3/uL (4.0-10.5)
[2017-04-26 16:56] LABS: ANION GAP 15 (5-19); BLOOD UREA NITROGEN 27 mg/dL (7-20); CALCIUM 8.6 mg/dL (8.4-10.2); CARBON DIOXIDE 27 mmol/L (22-30); CHLORIDE 96 mmol/L (98-107); CREATININE RESULT 4.97 mg/dL (0.52-1.25); GLUCOSE 187 mg/dL (75-110); POTASSIUM 5.1 mmol/L (3.6-5.0); SODIUM 137.9 mmol/L (137-145)
--- NOTE | 2017-04-26 17:00 | RADIOLOGY REPORT (SQ) ---
EXAM DESCRIPTION: CHEST SINGLE VIEW COMPLETED DATE/TIME: 04/26/2017 4:29 pm REASON FOR STUDY: PRE OP COMPARISON: Chest films 04/20/2017, 02/20/2017 CT chest 08/03/2011 EXAM PARAMETERS: NUMBER OF VIEWS: One view. TECHNIQUE: Single frontal radiographic view of the chest acquired. RADIATION DOSE: NA LIMITATIONS: None. FINDINGS: LUNGS AND PLEURA: No opacities, masses or pneumothorax. No pleural effusion. MEDIASTINUM AND HILAR STRUCTURES: No masses. Contour normal. HEART AND VASCULAR STRUCTURES: Stable moderate cardiomegaly BONES: No acute findings. HARDWARE: None in the chest. OTHER: No other significant finding. IMPRESSION: Stable moderate cardiomegaly. No acute infiltrates TECHNICAL DOCUMENTATION: JOB ID: [id number]
--- NOTE | 2017-04-27 08:13 | EKG REPORT ---
SEVERITY:- ABNORMAL ECG - SINUS RHYTHM [Remains] FIRST DEGREE AV BLOCK [Insig. Chg.] NO SIGNIFICANT CHANGE LATE PRECORDIAL TRANSITION. : Confirmed by: Jayesh Lopez MD 27-Apr-2017 08:12:39
[2017-04-27 09:47] LABS: ABSOLUTE BASOPHILS # (AUTO) 0.1 10^3/uL (0.0-0.2); ABSOLUTE EOSINOPHILS # (AUTO) 0.3 10^3/uL (0.0-0.6); ABSOLUTE LYMPHOCYTES (AUTO) 1.4 10^3/uL (0.5-4.7); ABSOLUTE MONOCYTES (AUTO) 0.8 10^3/uL (0.1-1.4); ABSOLUTE NEUT (AUTO) 5.4 10^3/uL (1.7-8.2); BASOPHILS % (AUTO) 0.9 % (0-2); EOSINOPHILS % (AUTO) 3.3 % (0-6); HEMATOCRIT 34.7 % (37.9-51.0); HEMOGLOBIN 11.2 g/dL (13.5-17.0); HGB HCT DIFFERENCE -1.1; LYMPHOCYTES % (AUTO) 17.9 % (13-45); MEAN CORPUSCULAR HEMOGLOBIN 29.2 pg (27.0-33.4); MEAN CORPUSCULAR HGB CONC 32.3 g/dL (32.0-36.0); MEAN CORPUSCULAR VOLUME 91 fl (80-97); MONOCYTES % (AUTO) 9.6 % (3-13); RED BLOOD COUNT 3.84 10^6/uL (4.35-5.55); RED CELL DISTRIBUTION WIDTH 16.3 % (11.5-14.0); SEGMENTED NEUTROPHILS % (AUTO) 68.3 % (42-78); WHITE BLOOD COUNT 7.9 10^3/uL (4.0-10.5)
[2017-04-27 10:28] LABS: ANION GAP 14 (5-19); BLOOD UREA NITROGEN 41 mg/dL (7-20); CALCIUM 8.6 mg/dL (8.4-10.2); CARBON DIOXIDE 25 mmol/L (22-30); CHLORIDE 98 mmol/L (98-107); CREATININE RESULT 6.56 mg/dL (0.52-1.25); GLUCOSE 128 mg/dL (75-110); POTASSIUM 5.6 mmol/L (3.6-5.0); SODIUM 137.2 mmol/L (137-145)
[2017-04-27] MEDS ORDERED: ONDANSETRON HCL INJ/PF 4 MG/2 ML SDV ONE (13:32)
[2017-04-27] MEDS ORDERED: DEXAMETHASONE SOD PHOSPHATE INJ 4 MG/1 ML VIAL ONE (13:32)
[2017-04-27] MEDS ORDERED: LIDOCAINE 2% INJ-PF (20 MG/ML) 10 ML AMPUL ONE (13:32)
[2017-04-27] MEDS ORDERED: PHENYLEPHRINE HCL INJ/PF 10 MG/1 ML SDV ONE (13:32)
[2017-04-27 13:34] LABS: CALCIUM 8.7 mg/dL (8.4-10.2); CARBON DIOXIDE 28 mmol/L (22-30); CHLORIDE 98 mmol/L (98-107); CREATININE RESULT 3.81 mg/dL (0.52-1.25); GLUCOSE 82 mg/dL (75-110)
[2017-04-27 13:35] LABS: ANION GAP 14 (5-19)
[2017-04-27] MEDS ORDERED: FENTANYL CITRATE INJ/PF 100 MCG/2 ML AMPUL ONE (13:42)
[2017-04-27] MEDS ORDERED: MIDAZOLAM 2 MG/2 ML INJ ONE (13:43)
[2017-04-27] MEDS ORDERED: EPHEDRINE SULFATE INJ 50 MG/1 ML AMPULE ONE (13:43)
[2017-04-27] MEDS ORDERED: PROPOFOL INJ 200 MG/20 ML VIAL IV ONE (13:44)
[2017-04-27] MEDS ORDERED: ACETAMINOPHEN 100 ML IV ONE (13:44)
--- NOTE | 2017-04-27 13:46 | PDOC H&P ---
History of Present Illness Admission Date/PCP: 04/26/17 14:35 FADUMO LARA NP Patient complains of: Right Foot Infection History of Present Illness: SHARONDA SU is a 61 year old male with long-standing history of diabetes mellitus. Patient underwent left below-knee amputation after developing osteomyelitis of his calcaneus. He subsequently did well postoperatively but began having wound issues in his right lower extremity over the past year. He was treated with IV antibiotics and local wound care at the wound clinic including hyperbarics without resolution. Subsequently he underwent formal debridement in the operating room suite unfortunately he continued to have wound healing problems. MRI was performed demonstrating persistent osteomyelitis of his calcaneus. Upon follow-up with infectious disease they felt given the osteomyelitis and its poor prognosis of healing within the calcaneus that he would be better served with a right below the knee amputation to avoid complications of possible sepsis. Currently patient states he has no discomfort but continued to have numbness throughout the right lower extremity with foul odor. Current pain /10. Denies fever chills or sweats. 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, Hyperlipidema, Heart Murmur Denies: Atrial Fibrillation, Congestive Heart Failure, Hypertension, Peripheral Vascular Disease, Pulmonary Embolism Pulmonary Medical History: Reports: Pneumonia, Respiratory Failure, Sleep Apnea Denies: Asthma, Bronchitis, Chronic Obstructive Pulmonary Disease (COPD) Neurological Medical History: Denies: Seizures Endocrine Medical History: Reports: Diabetes Mellitus Type 2 Denies: Hyperthyroidism, Hypothyroidism Renal/ Medical History: Reports: End Stage Renal Disease Malignancy Medical History: Denies: Breast Cancer, Cervical Cancer, Leukemia, Lung Cancer, Ovarian Cancer GI Medical History: Reports: Gastroesophageal Reflux Disease Denies: Crohn's Disease, Hepatitis, Hiatal Hernia Musculoskeltal Medical History: Reports: Arthritis Denies: Fibromyalgia Psychiatric Medical History: Reports: Depression, Post Traumatic Stress Disorder Denies: Bipolar Disorder Hematology: Denies: Anemia, Hemophilia, Sickle Cell Disease Infectious Medical History: 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 Denies: HIV Past Surgical History Past Surgical History: Reports: Colostomy - reversed, Orthopedic Surgery - Left rotator cuff x2, right rotator cuff x1 left BKA, Tonsillectomy Denies: Appendectomy, Cholecystectomy, Coronary Artery Bypass Graft, Gastric Bypass Surgery, Herniorrhaphy, Pacemaker Social History Smoking Status: Never Smoker Frequency of Alcohol Use: Rare Hx Recreational Drug Use: No Drugs: None Hx Prescription Drug Abuse: No Family History Family History: Reviewed & Not Pertinent, Hypertension Parental Family History Reviewed: No Children Family History Reviewed: No Sibling(s) Family History Reviewed.: No Medication/Allergy Home Medications: Atorvastatin Calcium 10 mg PO QHS 12/07/15 Omeprazole 40 mg PO BID 12/07/15 Calcium Acetate [Phoslo 667 mg Capsule] 2,668 mg PO MEALS 01/13/17 B Complex & C No.20/Folic Acid [Triphrocaps Softgel] 1 mg PO QHS 04/20/17 Clopidogrel Bisulfate [Plavix 75 mg Tablet] 75 mg PO DAILY 04/20/17 Escitalopram Oxalate [Lexapro] 20 mg PO QHS 04/20/17 Gabapentin [Neurontin 300 mg Capsule] 900 mg PO Q12 04/20/17 Aspirin [Ecotrin 325 mg EC Tablet] 325 mg PO DAILY 04/26/17 Insulin Regular, Human [Humulin R (Hi-Dose) Insulin 500 unit/mL] 0 unit PUMP ASDIR PRN 04/26/17 Silver Sulfadiazine [Silver Sulfadiazine] 1 applic TOP BID 04/26/17 Allergies/Adverse Reactions: No Known Allergies Allergy (Verified 04/20/17 15:13) Review of Systems All systems: as per PMH Constitutional: PRESENT: fatigue Eyes: ABSENT: visual disturbances Ears: ABSENT: hearing changes Cardiovascular: ABSENT: chest pain, dyspnea on exertion, edema, orthropnea, palpitations Respiratory: ABSENT: cough, hemoptysis Gastrointestinal: ABSENT: abdominal pain, constipation, diarrhea, hematemesis, hematochezia, nausea, vomiting Genitourinary: ABSENT: dysuria, hematuria Musculoskeletal: PRESENT: as per HPI Integumentary: PRESENT: as per HPI. ABSENT: rash, wounds Neurological: ABSENT: abnormal gait, abnormal speech, confusion, dizziness, focal weakness, syncope Psychiatric: ABSENT: anxiety, depression, homidical ideation, suicidal ideation Endocrine: ABSENT: cold intolerance, heat intolerance, menstrual abnormalities, polydipsia, polyuria Hematologic/Lymphatic: ABSENT: easy bleeding, easy bruising, lymphadenopathy Physical Exam Vital Signs: Temp Pulse Resp BP Pulse Ox 98.1 F 78 14 149/81 H 98 04/27/17 12:13 04/27/17 12:13 04/27/17 12:13 04/27/17 12:13 04/27/17 12:13 Intake & Output 04/26/17 04/27/17 04/28/17 06:59 06:59 06:59 Intake Total 300 Balance 300 Weight 132.7 kg General appearance: PRESENT: no acute distress, well-developed, well-nourished Head exam: PRESENT: atraumatic, normocephalic Eye exam: PRESENT: conjunctiva pink, EOMI, PERRLA. ABSENT: scleral icterus Ear exam: PRESENT: normal external ear exam Mouth exam: PRESENT: moist, tongue midline Neck exam: PRESENT: full ROM. ABSENT: carotid bruit, JVD, lymphadenopathy, thyromegaly Respiratory exam: PRESENT: unlabored Cardiovascular exam: PRESENT: RRR. ABSENT: diastolic murmur, rubs, systolic murmur Pulses: PRESENT: other - Diminished dorsalis pedis pulse right lower extremity. Vascular exam: PRESENT: normal capillary refill GI/Abdominal exam: PRESENT: normal bowel sounds, soft. ABSENT: distended, guarding, mass, organolmegaly, rebound, tenderness Rectal exam: PRESENT: deferred Extremities exam: PRESENT: left BKA, other - Right lower extremity: Diabetic ulcer along the calcaneus with necrosis superficially and foul order. Intact plantar flexion/dorsiflexion. No tracking erythema. Stocking glove hypoesthesia Neurological exam: PRESENT: alert, awake, oriented to person, oriented to place , oriented to time, oriented to situation, CN II-XII grossly intact. ABSENT: motor sensory deficit Psychiatric exam: PRESENT: appropriate affect, normal mood. ABSENT: homicidal ideation, suicidal ideation Skin exam: PRESENT: dry, intact, warm. ABSENT: cyanosis, rash Results Laboratory Results: 04/27/17 09:00 04/26/17 04/26/17 04/27/17 16:00 16:00 09:00 WBC 9.3 RBC 4.02 L Hgb 11.7 L Hct 36.9 L MCV 92 MCH 29.1 MCHC 31.7 L RDW 16.1 H Plt Count 218 Seg Neutrophils % 74.6 Lymphocytes % 13.6 Monocytes % 8.2 Eosinophils % 2.6 Basophils % 1.0 Absolute Neutrophils 6.9 Absolute Lymphocytes 1.3 Absolute Monocytes 0.8 Absolute Eosinophils 0.2 Absolute Basophils 0.1 Sodium 137.9 137.2 Potassium 5.1 H 5.6 H Chloride 96 L 98 Carbon Dioxide 27 25 Anion Gap 15 14 BUN 27 H 41 H Creatinine 4.97 H 6.56 H Est GFR ( Amer) 14 L 10 L Est GFR (Non-Af Amer) 12 L 9 L Glucose 187 H 128 H Calcium 8.6 8.6 04/27/17 09:00 WBC 7.9 RBC 3.84 L Hgb 11.2 L Hct 34.7 L MCV 91 MCH 29.2 MCHC 32.3 RDW 16.3 H Plt Count 215 Seg Neutrophils % 68.3 Lymphocytes % 17.9 Monocytes % 9.6 Eosinophils % 3.3 Basophils % 0.9 Absolute Neutrophils 5.4 Absolute Lymphocytes 1.4 Absolute Monocytes 0.8 Absolute Eosinophils 0.3 Absolute Basophils 0.1 Sodium Potassium Chloride Carbon Dioxide Anion Gap BUN Creatinine Est GFR ( Amer) Est GFR (Non-Af Amer) Glucose Calcium 04/26/17 18:21 Nasophary (Mrsa Only) MRSA Surveillance Culture - Final MRSA RECOVERED Impressions: Chest X-Ray 04/26/17 00:00 IMPRESSION: Stable moderate cardiomegaly. No acute infiltrates Assessment & Plan - Diagnosis (1) Acute osteomyelitis of right calcaneus Is this a current diagnosis for this admission?: YesPlan: Patient was explained in detail the risk of the surgical procedure including anesthesia risks, neurovascular's, postoperative pain, bleeding requiring transfusion, infection and decreased ambulatory ability. Patient has verbalized understanding and consented to the surgical procedure. Patient has received dialysis today and will receive dialysis likely Sunday anticipate discharge to [facility] facility. I will consult the hospitalist postoperatively to manage patient's medical issues.
[2017-04-27 13:54] LABS: BLOOD UREA NITROGEN 22 mg/dL (7-20); POTASSIUM 4.3 mmol/L (3.6-5.0)
[2017-04-27] MEDS ORDERED: VANCOMYCIN HCL 1,000 MG in DEXTROSE 5%-WATER 250 ML IV PRN (14:01)
[2017-04-27 14:07] LABS: PROTHROMBIN TIME 13.3 SEC (11.4-15.4)
[2017-04-27 14:08] LABS: PARTIAL THROMBOPLASTIN TIME 28.9 SEC (23.5-35.8)
[2017-04-27] MEDS ORDERED: LIDOCAINE 1% INJ-PF (10 MG/ML) 30 ML SDV ONE (15:12)
[2017-04-27] MEDS ORDERED: FENTANYL CITRATE INJ/PF 100 MCG/2 ML AMPUL IV PRN ×3 (16:26)
[2017-04-27] MEDS ORDERED: MORPHINE SULFATE 10 MG/ML INJ IV PRN (16:26)
[2017-04-27] MEDS ORDERED: MEPERIDINE HCL/PF INJ 25 MG/1 ML DISP.SYRIN IV PRN (16:26)
[2017-04-27] MEDS ORDERED: PROMETHAZINE HCL INJ 25 MG/1 ML VIAL IV PRN ×2 (16:26)
[2017-04-27] MEDS ORDERED: OXYCODONE-ACETAMINOPHEN 5-325 MG TABLET PO PRN ×4 (16:26→21:29)
[2017-04-27] MEDS ORDERED: DIPHENHYDRAMINE HCL 50 MG/ML VIAL IV PRN (16:26)
--- NOTE | 2017-04-27 16:33 | Operative Report ---
Operative Report DATE OF SURGERY: 04/27/17 PREOPERATIVE DIAGNOSIS: Right Calcaneous Osteomyelitis POSTOPERATIVE DIAGNOSIS: Same OPERATION: Right Below Knee Amputation SURGEON: MIKO PANG ANESTHESIA: Spinal TISSUE REMOVED OR ALTERED: Right LE COMPLICATIONS: None ESTIMATED BLOOD LOSS: 55cc PROCEDURE: Patient for above procedure: 61-year-old male with long-standing history of diabetes who subsequently underwent left below-knee amputation. Patient recovered well after this surgery did require repeat surgery for revision but overall his function improved. Unfortunately then developed right calcaneal osteomyelitis was followed by medicine, wound clinic infectious disease and myself at that point patient failed to see improvement and thus we discussed treatment options including operative versus nonoperative intervention. Risks and benefits were explained the patient, patient verbalized understanding and consented for a below-knee amputation. Procedure In Detail: Patient was seen and evaluated in the preoperative holding area. The RIGHT lower extremity was initialized and marked. Patient received 1 g of vancomycin IV for bacterial prophylaxis. Patient was taken back to the operative room where transferred to the operative table and placed under general anesthesia. Once they were adequately anesthetized a nonsterile tourniquet was placed on the lower extremity. A surgical team debriefing was performed ensuring all instrumentation was available, the surgical procedure was discussed with possible concerns reviewed. The lower extremity was prepped with ChloraPrep and draped in a sterile fashion. A timeout was done identifying correct patient, procedure and extremity everyone in attendance agree with this and verbalized no concerns. The extremity was exsanguinated the tourniquet was inflated to 350 mmHg. Skin incision was made 10 cm distal to the tibial tubercle and 15 cm distal to the joint line anteriorly over the tibia. This was then extended to made a posterior flap approximately two thirds the circumference of the leg which equated to about 9 cm.. Incision was then directed distally and posteriorly equal distance in the AP diameter. And the flap was then completed. I then identified the saphenous vein which was clamped. The anterior incision was carried down through all soft tissues to bone including the periosteum. The anterior tibial artery and peroneal nerve were identified. The peroneal nerve was injected with lidocaine and transected proximally. With an oscillating saw I cut the tibia obliquely proximal to distal a 45 angle. I then identified the fibula and elevated the muscle from the fibula and cut it 1.5 cm proximal to the tibial resection. The posterior tibial artery and peroneal artery were identified clamped and tied. Tibial nerve was slowly cauterized proximal to the tibial transection. The sural nerve was also identified and cauterized proximal to the transition. The tourniquet was then deflated. There was minimal bleeding that any remaining vascular bleeding was coagulated with electrocautery. The wound was then copiously irrigated with normal saline. I then turned my attention to myoplasty. Using a 2.5 mm drill bit to holes were placed in the anterior aspect of the tibia and the posterior musculature and intramuscular secured with a bone bridge utilizing #5 FiberWire. I then proceeded with wound closure utilizing 2-0 Vicryl suture. A #15 Joao drain was then placed deep and brought out the anterolateral aspect of the incision.. The medial and lateral wound edges were trimmed to avoid dog ears. I good soft tissue coverage anterior along the tibial crest. 25 cc of 1% lidocaine was injected for postoperative pain control. Skin was closed with damon. Wound was dressed with Xeroform 4 x 4's ABD and will secured Puneet bandage. Sponge counts, instrument counts, needle counts counts were correct. Patient was then awoken from anesthesia. Transferred from the operating room table to the operating room stretcher. There was no intraoperative complications patient tolerated procedure well stable to PACU. Postoperative plan: Patient will require outpatient rehabilitation and set up for prosthetics in the right lower extremity.
--- NOTE | 2017-04-27 17:03 | PDOC CONSULTATION ---
Consultation Consult Date: 04/27/17 Consult reason:: Hemodialysis History of Present Illness Admission Date/PCP: 04/26/17 14:35 FADUMO LARA NP History of Present Illness: SHARONDA SU is a 61 year old male with long-standing history of complicated diabetes mellitus, PVD , history of Left foot Osteomyelitis, s/p left BKA, ESRD on Hemodialysis. Patient underwent left below-knee amputation after developing osteomyelitis of his calcaneus. He subsequently did well postoperatively but began having wound issues in his right lower extremity over the past year. He was treated with IV antibiotics and local wound care at the wound clinic including hyperbarics without resolution. Subsequently he underwent formal debridement in the operating room suite unfortunately he continued to have wound healing problems. MRI was performed demonstrating persistent osteomyelitis of his calcaneus. Upon follow-up with infectious disease they felt given the osteomyelitis and its poor prognosis of healing within the calcaneus that he would be better served with a right below the knee amputation to avoid complications of possible sepsis.He has been admitted by Dr Hernandez for the procedure later in the day. Patient seen on Dialysis this AM. He is undergoing Dialysis with out any issues. He denies chest pains, dyspnea. No nausea or vomiting. No fever or chills. 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 [employer] TR[employer] Denies: Atrial Fibrillation, Peripheral Vascular Disease, Pulmonary Embolism Pulmonary Medical History: Reports: Pneumonia, Respiratory Failure, Sleep Apnea Denies: Asthma, Bronchitis, Chronic Obstructive Pulmonary Disease (COPD) Neurological Medical History: Denies: Seizures Endocrine Medical History: Reports: Diabetes Mellitus Type 2 Denies: Hyperthyroidism, Hypothyroidism Renal/ Medical History: Reports: End Stage Renal Disease, Renal Osteodystropy Denies: Benign Prostatic Hyperplasia Malignancy Medical History: Denies: Breast Cancer, Cervical Cancer, Leukemia, Lung Cancer, Ovarian Cancer GI Medical History: Reports: Gastroesophageal Reflux Disease Denies: Crohn's Disease, Hepatitis, Hiatal Hernia Musculoskeltal Medical History: Reports: Arthritis, Rheumatoid Arthritis Denies: Fibromyalgia, Systemic Lupus Erythematosus Psychiatric Medical History: Reports: Depression, Post Traumatic Stress Disorder Denies: Bipolar Disorder Infectious Medical History: 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 Denies: HIV Hematology Medical History: Reports Anemia of Chronic Kidney Disease Past Surgical History Past Surgical History: Reports: Colostomy - reversed, Orthopedic Surgery - Left rotator cuff x2, right rotator cuff x1 left BKA, Tonsillectomy Denies: Appendectomy, Cholecystectomy, Coronary Artery Bypass Graft, Gastric Bypass Surgery, Herniorrhaphy, Pacemaker Social History Smoking Status: Never Smoker Frequency of Alcohol Use: Rare Hx Recreational Drug Use: No Drugs: None Hx Prescription Drug Abuse: No - Advance Directive Resuscitation Status: Full Code Family History Parental Family History Reviewed: Yes - negative for ESRD Children Family History Reviewed: No Sibling(s) Family History Reviewed.: No Medication/Allergy Home Medications: Atorvastatin Calcium 10 mg PO QHS 12/07/15 Omeprazole 40 mg PO BID 12/07/15 Calcium Acetate [Phoslo 667 mg Capsule] 2,668 mg PO MEALS 01/13/17 B Complex & C No.20/Folic Acid [Triphrocaps Softgel] 1 mg PO QHS 04/20/17 Clopidogrel Bisulfate [Plavix 75 mg Tablet] 75 mg PO DAILY 04/20/17 Escitalopram Oxalate [Lexapro] 20 mg PO QHS 04/20/17 Gabapentin [Neurontin 300 mg Capsule] 900 mg PO Q12 04/20/17 Aspirin [Ecotrin 325 mg EC Tablet] 325 mg PO DAILY 04/26/17 Insulin Regular, Human [Humulin R (Hi-Dose) Insulin 500 unit/mL] 0 unit PUMP ASDIR PRN 04/26/17 Silver Sulfadiazine [Silver Sulfadiazine] 1 applic TOP BID 04/26/17 Allergies/Adverse Reactions: No Known Allergies Allergy (Verified 04/20/17 15:13) Review of Systems Constitutional: ABSENT: anorexia, chills, fever(s), headache(s), night sweats, weakness Nose, Mouth, and Throat: ABSENT: mouth pain, sore throat Cardiovascular: PRESENT: edema. ABSENT: chest pain, dyspnea on exertion, orthropnea, palpitations Respiratory: ABSENT: dyspnea, hemoptysis Gastrointestinal: ABSENT: abdominal pain, bloating, heartburn, hematemesis, hematochezia Genitourinary: ABSENT: dysuria, hematuria Neurological: ABSENT: abnormal speech, confusion, focal weakness, frequent falls Hematologic/Lymphatic: ABSENT: easy bruising, lymphadenopathy Physical Exam Vital Signs: Temp Pulse Resp BP Pulse Ox 98.1 F 78 14 149/81 H 98 04/27/17 12:13 04/27/17 12:13 04/27/17 12:13 04/27/17 12:13 04/27/17 12:13 Intake & Output 04/26/17 04/27/17 04/28/17 06:59 06:59 06:59 Intake Total 300 2000 Output Total 3300 Balance 300 -1300 Weight 132.7 kg General appearance: PRESENT: no acute distress Eye exam: PRESENT: conjunctiva pink, EOMI, PERRLA Ear exam: PRESENT: normal external ear exam Mouth exam: PRESENT: moist, neck supple Neck exam: ABSENT: lymphadenopathy, meningismus, tenderness, thyromegaly, tracheal deviation Respiratory exam: PRESENT: clear to auscultation lis. ABSENT: crackles, rhonchi Cardiovascular exam: PRESENT: +S1, +S2, systolic murmur GI/Abdominal exam: PRESENT: soft. ABSENT: organomegaly, tenderness Extremities exam: PRESENT: pedal edema Neurological exam: PRESENT: alert, awake, oriented to person, oriented to place Results Laboratory Results: 04/27/17 09:00 04/27/17 13:04 04/26/17 04/27/17 04/27/17 16:00 09:00 09:00 WBC 7.9 RBC 3.84 L Hgb 11.2 L Hct 34.7 L MCV 91 MCH 29.2 MCHC 32.3 RDW 16.3 H Plt Count 215 Seg Neutrophils % 68.3 Lymphocytes % 17.9 Monocytes % 9.6 Eosinophils % 3.3 Basophils % 0.9 Absolute Neutrophils 5.4 Absolute Lymphocytes 1.4 Absolute Monocytes 0.8 Absolute Eosinophils 0.3 Absolute Basophils 0.1 Sodium 137.9 137.2 Potassium 5.1 H 5.6 H Chloride 96 L 98 Carbon Dioxide 27 25 Anion Gap 15 14 BUN 27 H 41 H Creatinine 4.97 H 6.56 H Est GFR ( Amer) 14 L 10 L Est GFR (Non-Af Amer) 12 L 9 L Glucose 187 H 128 H Calcium 8.6 8.6 04/27/17 13:04 WBC RBC Hgb Hct MCV MCH MCHC RDW Plt Count Seg Neutrophils % Lymphocytes % Monocytes % Eosinophils % Basophils % Absolute Neutrophils Absolute Lymphocytes Absolute Monocytes Absolute Eosinophils Absolute Basophils Sodium 140.0 Potassium 4.3 D Chloride 98 Carbon Dioxide 28 Anion Gap 14 BUN 22 H Creatinine 3.81 H Est GFR ( Amer) 20 L Est GFR (Non-Af Amer) 16 L Glucose 82 Calcium 8.7 04/26/17 18:21 Nasophary (Mrsa Only) MRSA Surveillance Culture - Final MRSA RECOVERED Impressions: Chest X-Ray 04/26/17 00:00 IMPRESSION: Stable moderate cardiomegaly. No acute infiltrates Assessment & Plan - Diagnosis (1) Below knee amputation status Plan: Left. As per Dr Hernandez. Note MRSA recovered form nasal swab as part of surveillance (2) End stage renal failure on dialysis Plan: Patient on HD which is being supervised.VS stable though BP is on yje low normal side. Orders discussed with treating RN. Plan to remove 1-2 L as tolerated. Stable for surgery later in the day. (3) Anemia Qualifiers: Anemia type: unspecified type Qualified Code(s): D64.9 - Anemia, unspecified Is this a current diagnosis for this admission?: NoPlan: No need for EPO today. (4) Hypotension (arterial) Qualifiers: Hypotension type: other hypotension type Qualified Code(s): I95.89 - Other hypotension Is this a current diagnosis for this admission?: YesPlan: Monitor.Check AM cortisol. (5) Morbid obesity Is this a current diagnosis for this admission?: No (6) Obstructive sleep apnea Is this a current diagnosis for this admission?: YesPlan: Cpap.
[2017-04-27] MEDS: CALCIUM ACETATE 667 MG CAPSULE PO SCH (17:53)
[2017-04-27] MEDS: LANSOPRAZOLE 30 MG TAB.RAP.DR PO SCH (17:53)
[2017-04-27] MEDS ORDERED: DEXTROSE 40% GEL 15 GM TUBE PO PRN ×2 (18:16)
[2017-04-27] MEDS ORDERED: INSULIN LISPRO 100 UNIT/ML 3 ML VIAL SUBCUT PRN (18:16)
[2017-04-27] MEDS ORDERED: DEXTROSE 50%-WATER 25 GM/50 ML DISP.SYRIN IV PRN ×2 (18:16)
[2017-04-27] MEDS ORDERED: GLUCAGON,HUMAN RECOMB 1 MG INJ IM PRN (18:16)
[2017-04-27] MEDS ORDERED: PHARMACY COMMUNICATION ORDER MC NR (18:30)
[2017-04-27] MEDS ORDERED: MORPHINE SULFATE 10 MG/ML INJ ONE (21:03)
[2017-04-27] MEDS: HEPARIN SOD (PORCINE) 5,000 UNIT/ML 1 ML SYRINGE SUBCUT SCH (21:22)
[2017-04-27] MEDS: GABAPENTIN 300 MG CAPSULE PO SCH (21:23)
[2017-04-27] MEDS ORDERED: OXYCODONE HCL IR 5 MG TABLET PO PRN (21:30)
[2017-04-27] MEDS ORDERED: ATORVASTATIN CALCIUM 10 MG TABLET PO SCH (22:00)
[2017-04-27] MEDS ORDERED: ESCITALOPRAM OXALATE 10 MG TABLET PO SCH (22:00)
[2017-04-27] MEDS: MORPHINE SULFATE 10 MG/ML INJ IV PRN (23:46)
[2017-04-28] MEDS: MORPHINE SULFATE 10 MG/ML INJ IV PRN (03:54)
[2017-04-28 05:17] LABS: HEMATOCRIT 36.8 % (37.9-51.0); HEMOGLOBIN 11.6 g/dL (13.5-17.0); MEAN CORPUSCULAR HEMOGLOBIN 29.1 pg (27.0-33.4); MEAN CORPUSCULAR HGB CONC 31.5 g/dL (32.0-36.0); MEAN CORPUSCULAR VOLUME 93 fl (80-97); RED BLOOD COUNT 3.97 10^6/uL (4.35-5.55); RED CELL DISTRIBUTION WIDTH 16.2 % (11.5-14.0); WHITE BLOOD COUNT 11.5 10^3/uL (4.0-10.5)
[2017-04-28 05:34] LABS: ANION GAP 13 (5-19); BLOOD UREA NITROGEN 38 mg/dL (7-20); CALCIUM 8.9 mg/dL (8.4-10.2); CARBON DIOXIDE 26 mmol/L (22-30); CHLORIDE 98 mmol/L (98-107); CREATININE RESULT 5.99 mg/dL (0.52-1.25); GLUCOSE 337 mg/dL (75-110); SODIUM 137.4 mmol/L (137-145)
[2017-04-28 05:42] LABS: POTASSIUM 6.7 mmol/L (3.6-5.0)
[2017-04-28] MEDS: HEPARIN SOD (PORCINE) 5,000 UNIT/ML 1 ML SYRINGE SUBCUT SCH (05:43)
[2017-04-28] MEDS: HYDROMORPHONE HCL INJ/PF 2 MG/ML AMPULE IV PRN ×2 (05:43→13:12)
[2017-04-28] MEDS ORDERED: GLUCAGON,HUMAN RECOMB 1 MG INJ IM PRN (06:05)
[2017-04-28] MEDS ORDERED: IPRATROPIUM/ALBUTEROL 0.5-2.5 MG/3 ML AMPUL NEB ONE (06:05)
[2017-04-28] MEDS ORDERED: CALCIUM GLUCONATE 1,000 MG in DEXTROSE 5%-WATER 50 ML IV ONE (06:05)
[2017-04-28] MEDS ORDERED: DEXTROSE 40% GEL 15 GM TUBE PO PRN ×2 (06:05)
[2017-04-28] MEDS ORDERED: DEXTROSE 50%-WATER 25 GM/50 ML DISP.SYRIN IV PRN ×2 (06:05)
[2017-04-28] MEDS ORDERED: INSULIN REG, HUMAN 100 UNIT/ML 3 ML VIAL (PYX) IV ONE ×2 (06:06→07:49)
[2017-04-28] MEDS ORDERED: SODIUM POLYSTYRENE SULFONATE 15 GM/60 ML PO ONE ×2 (06:07→07:44)
[2017-04-28] MEDS ORDERED: CALCIUM GLUCONATE 1000 MG/10 ML INJ IV ONE ×3 (07:38→13:51)
[2017-04-28] MEDS ORDERED: DEXTROSE 50%-WATER 25 GM/50 ML DISP.SYRIN IV ONE (07:49)
--- NOTE | 2017-04-28 07:57 | PDOC CONSULTATION ---
Consultation Consult Date: 04/27/17 Attending physician:: MIKO PANG Consult reason:: Medical co-management History of Present Illness Admission Date/PCP: 04/26/17 14:35 FADUMO LARA NP History of Present Illness: SHARONDA SU is a 61 year old male with long-standing history of complicated diabetes mellitus, a-fib, PVD , history of Left foot Osteomyelitis, s/p left BKA , ESRD on Hemodialysis. Patient previously underwent left below-knee amputation after developing osteomyelitis of his calcaneus. He subsequently did well postoperatively but began having wound issues in his right lower extremity over the past year. He was treated with IV antibiotics and local wound care at the wound clinic including hyperbarics without resolution. Subsequently he underwent formal debridement in the operating room suite unfortunately he continued to have wound healing problems. MRI was performed demonstrating persistent osteomyelitis of his calcaneus. Upon follow-up with infectious disease they felt given the osteomyelitis and its poor prognosis of healing within the calcaneus that he would be better served with a right below the knee amputation to avoid complications of possible sepsis.He has been admitted by Dr Hernandez for the procedure later in the day. Patient was seen in PACU after an uneventful surgery. Patient had spinal anesthetic and reports no pain at this time. He denies chest pain, shortness of breath, nausea, vomiting. 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, Hyperlipidema, Heart Murmur Denies: Atrial Fibrillation, Congestive Heart Failure, Hypertension, Peripheral Vascular Disease, Pulmonary Embolism Pulmonary Medical History: Reports: Pneumonia, Respiratory Failure, Sleep Apnea Denies: Asthma, Bronchitis, Chronic Obstructive Pulmonary Disease (COPD) Neurological Medical History: Denies: Seizures Endocrine Medical History: Reports: Diabetes Mellitus Type 2 Denies: Hyperthyroidism, Hypothyroidism Renal/ Medical History: Reports: End Stage Renal Disease Malignancy Medical History: Denies: Breast Cancer, Cervical Cancer, Leukemia, Lung Cancer, Ovarian Cancer GI Medical History: Reports: Gastroesophageal Reflux Disease Denies: Crohn's Disease, Hepatitis, Hiatal Hernia Musculoskeltal Medical History: Reports: Arthritis Denies: Fibromyalgia Psychiatric Medical History: Reports: Depression, Post Traumatic Stress Disorder Denies: Bipolar Disorder Hematology: Denies: Anemia, Hemophilia, Sickle Cell Disease Infectious Medical History: Reports: Methicillin-Resistant Staph Aureus, Vancomycin-Resistant Enterococci Denies: HIV Past Surgical History Past Surgical History: Reports: Colostomy - reversed, Orthopedic Surgery - Left rotator cuff x2, right rotator cuff x1 left BKA, Tonsillectomy Denies: Appendectomy, Cholecystectomy, Coronary Artery Bypass Graft, Gastric Bypass Surgery, Herniorrhaphy, Pacemaker Social History Smoking Status: Never Smoker Frequency of Alcohol Use: Rare Hx Recreational Drug Use: No Drugs: None Hx Prescription Drug Abuse: No - Advance Directive Resuscitation Status: Full Code Surrogate healthcare decision maker:: chin Family History Family History: DM, Hypertension Parental Family History Reviewed: Yes Children Family History Reviewed: Yes Sibling(s) Family History Reviewed.: Yes Medication/Allergy Home Medications: Atorvastatin Calcium 10 mg PO QHS 12/07/15 Omeprazole 40 mg PO BID 12/07/15 Calcium Acetate [Phoslo 667 mg Capsule] 2,668 mg PO MEALS 01/13/17 B Complex & C No.20/Folic Acid [Triphrocaps Softgel] 1 mg PO QHS 04/20/17 Clopidogrel Bisulfate [Plavix 75 mg Tablet] 75 mg PO DAILY 04/20/17 Escitalopram Oxalate [Lexapro] 20 mg PO QHS 04/20/17 Gabapentin [Neurontin 300 mg Capsule] 900 mg PO Q12 04/20/17 Aspirin [Ecotrin 325 mg EC Tablet] 325 mg PO DAILY 04/26/17 Insulin Regular, Human [Humulin R (Hi-Dose) Insulin 500 unit/mL] 0 unit PUMP ASDIR PRN 04/26/17 Silver Sulfadiazine [Silver Sulfadiazine] 1 applic TOP BID 04/26/17 Allergies/Adverse Reactions: No Known Allergies Allergy (Verified 04/20/17 15:13) Review of Systems Constitutional: ABSENT: chills, fever(s), headache(s), weight gain, weight loss Eyes: ABSENT: visual disturbances Ears: ABSENT: hearing changes Cardiovascular: ABSENT: chest pain, dyspnea on exertion, edema, orthropnea, palpitations Respiratory: ABSENT: cough, hemoptysis Gastrointestinal: ABSENT: abdominal pain, constipation, diarrhea, hematemesis, hematochezia, nausea, vomiting Genitourinary: ABSENT: dysuria, hematuria Musculoskeletal: PRESENT: as per HPI Integumentary: PRESENT: as per HPI Neurological: ABSENT: abnormal gait, abnormal speech, confusion, dizziness, focal weakness, syncope Psychiatric: ABSENT: anxiety, depression, homidical ideation, suicidal ideation Endocrine: ABSENT: cold intolerance, heat intolerance, polydipsia, polyuria Hematologic/Lymphatic: ABSENT: easy bleeding, easy bruising Physical Exam Vital Signs: Temp Pulse Resp BP Pulse Ox 98.1 F 78 14 149/81 H 98 04/27/17 12:13 04/27/17 12:13 04/27/17 12:13 04/27/17 12:13 04/27/17 12:13 Intake & Output 04/26/17 04/27/17 04/28/17 06:59 06:59 06:59 Intake Total 300 3200 Output Total 3350 Balance 300 -150 Weight 132.7 kg General appearance: PRESENT: no acute distress, obese, well-developed, well- nourished Head exam: PRESENT: atraumatic, normocephalic Eye exam: PRESENT: conjunctiva pink, EOMI, PERRLA. ABSENT: conjunctival injection, scleral icterus Ear exam: PRESENT: normal external ear exam Mouth exam: PRESENT: moist, tongue midline Neck exam: ABSENT: JVD, lymphadenopathy, thyromegaly, tracheal deviation Respiratory exam: PRESENT: clear to auscultation lis. ABSENT: rales, rhonchi, wheezes Cardiovascular exam: PRESENT: RRR, +S1, +S2. ABSENT: diastolic murmur, rubs, systolic murmur Pulses: PRESENT: normal radial pulses, other - bilat bka Vascular exam: PRESENT: normal capillary refill GI/Abdominal exam: PRESENT: hypoactive bowel sounds, soft. ABSENT: distended, firm, guarding, mass, Ardon's sign, normal bowel sounds, organolmegaly, rebound , rigid, tenderness Rectal exam: PRESENT: deferred Extremities exam: PRESENT: other - bilateral BKA. ABSENT: clubbing Musculoskeletal exam: ABSENT: ambulatory Neurological exam: PRESENT: alert, awake, oriented to person, oriented to place , oriented to time, oriented to situation, CN II-XII grossly intact. ABSENT: motor sensory deficit Psychiatric exam: PRESENT: appropriate affect, normal mood. ABSENT: homicidal ideation, suicidal ideation Skin exam: PRESENT: dry, warm. ABSENT: cyanosis, intact - fresh right bka, rash Results Laboratory Results: 04/27/17 09:00 04/27/17 13:04 04/27/17 04/27/17 04/27/17 09:00 09:00 13:04 WBC 7.9 RBC 3.84 L Hgb 11.2 L Hct 34.7 L MCV 91 MCH 29.2 MCHC 32.3 RDW 16.3 H Plt Count 215 Seg Neutrophils % 68.3 Lymphocytes % 17.9 Monocytes % 9.6 Eosinophils % 3.3 Basophils % 0.9 Absolute Neutrophils 5.4 Absolute Lymphocytes 1.4 Absolute Monocytes 0.8 Absolute Eosinophils 0.3 Absolute Basophils 0.1 Sodium 137.2 140.0 Potassium 5.6 H 4.3 D Chloride 98 98 Carbon Dioxide 25 28 Anion Gap 14 14 BUN 41 H 22 H Creatinine 6.56 H 3.81 H Est GFR ( Amer) 10 L 20 L Est GFR (Non-Af Amer) 9 L 16 L Glucose 128 H 82 Calcium 8.6 8.7 04/26/17 18:21 Nasophary (Mrsa Only) MRSA Surveillance Culture - Final MRSA RECOVERED Impressions: Chest X-Ray 04/26/17 00:00 IMPRESSION: Stable moderate cardiomegaly. No acute infiltrates Assessment & Plan - Diagnosis (1) Below knee amputation status Qualifiers: Laterality: right Qualified Code(s): Z89.511 - Acquired absence of right leg below knee Is this a current diagnosis for this admission?: YesPlan: Defer to orthopedics (2) End stage renal failure on dialysis Is this a current diagnosis for this admission?: YesPlan: Defer to nephrology (3) Anemia Qualifiers: Anemia type: due to chronic kidney disease Chronic kidney disease stage : on chronic dialysis Qualified Code(s): N18.6 - End stage renal disease ; D63.1 - Anemia in chronic kidney disease; Z99.2 - Dependence on renal dialysis Is this a current diagnosis for this admission?: YesPlan: defer to nephrology (4) Chronic kidney disease (CKD) Qualifiers: Chronic kidney disease stage: on chronic dialysis Qualified Code(s) : N18.6 - End stage renal disease; Z99.2 - Dependence on renal dialysis Is this a current diagnosis for this admission?: YesPlan: Renally adjust all medications (5) Coronary artery disease Qualifiers: Coronary Disease-Associated Artery/Lesion type: craig artery [place] vs. transplanted heart: craig heart Associated angina: without angina Qualified Code(s): I25.10 - Atherosclerotic heart disease of craig coronary artery without angina pectoris Is this a current diagnosis for this admission?: Yes (6) Diabetes Qualifiers: Diabetes mellitus type: type 1 Diabetes mellitus complication status: with circulatory complication Diabetes mellitus complication detail: with other circulatory complications Qualified Code(s): E10.59 - Type 1 diabetes mellitus with other circulatory complications Is this a current diagnosis for this admission?: YesPlan: sliding scale insulin would like to resume patient insulin pump once he is eating and drinking normally (7) GERD (gastroesophageal reflux disease) Qualifiers: Esophagitis presence: without esophagitis Qualified Code(s): K21.9 - Gastro-esophageal reflux disease without esophagitis Is this a current diagnosis for this admission?: YesPlan: continue ppi (8) Morbid obesity Is this a current diagnosis for this admission?: Yes (9) Obstructive sleep apnea Is this a current diagnosis for this admission?: YesPlan: Place patient on CPAP at 8 and titrate for comfort
--- NOTE | 2017-04-28 09:11 | EKG REPORT ---
SEVERITY:- ABNORMAL ECG - SINUS RHYTHM FIRST DEGREE AV BLOCK BORDERLINE R WAVE PROGRESSION, ANTERIOR LEADS : Confirmed by: Jayesh Lopez MD 28-Apr-2017 09:10:30
[2017-04-28] MEDS: CALCIUM ACETATE 667 MG CAPSULE PO SCH ×2 (09:30→12:45)
[2017-04-28] MEDS ORDERED: ROCURONIUM BROMIDE INJ 50 MG/5 ML VIAL IV ONE ×2 (10:00→14:40)
[2017-04-28] MEDS ORDERED: HYDROCORTISONE SOD SUCCINATE INJ/PF 250 MG/2 ML SDV IV ONE (10:08)
[2017-04-28] MEDS ORDERED: NORMAL SALINE 1000 ML 250 ML IV ONE (10:08)
--- NOTE | 2017-04-28 10:13 | PDOC TRANSFER SUMMARY ---
General Admission Date/PCP: 04/26/17 14:35 FADUMO LARA NP Resuscitation Status: Full Code - Transfer Diagnosis (1) Acute osteomyelitis of right calcaneus Is this a current diagnosis for this admission?: Yes - Transfer Medications Home Medications: Atorvastatin Calcium 10 mg PO QHS 12/07/15 Omeprazole 40 mg PO BID 12/07/15 Calcium Acetate [Phoslo 667 mg Capsule] 2,668 mg PO MEALS 01/13/17 B Complex & C No.20/Folic Acid [Triphrocaps Softgel] 1 mg PO QHS 04/20/17 Clopidogrel Bisulfate [Plavix 75 mg Tablet] 75 mg PO DAILY 04/20/17 Escitalopram Oxalate [Lexapro] 20 mg PO QHS 04/20/17 Gabapentin [Neurontin 300 mg Capsule] 900 mg PO Q12 04/20/17 Aspirin [Ecotrin 325 mg EC Tablet] 325 mg PO DAILY 04/26/17 Insulin Regular, Human [Humulin R (Hi-Dose) Insulin 500 unit/mL] 0 unit PUMP ASDIR PRN 04/26/17 Silver Sulfadiazine [Silver Sulfadiazine] 1 applic TOP BID 04/26/17 Transfer Medications: Current Medications Atorvastatin Calcium (Lipitor 10 Mg Tablet) 10 mg PO QHS [facility] Stop: 05/27/17 21:59 Last Admin: 04/27/17 21:22 Dose: 10 mg Calcium Acetate (Phoslo 667 Mg Capsule) 2,668 mg PO MEALS [facility] Stop: 05/27/17 16:59 Last Admin: 04/28/17 09:30 Dose: 2,668 mg Dextrose (Dextrose Inj 50% Syringe (25 Gm/50 Ml)) 12.5 gm IV PRN PRN; Protocol PRN Reason: FOR BG 50-69 IN ALERT PATIENT Stop: 05/27/17 18:15 Dextrose (Dextrose Inj 50% Syringe (25 Gm/50 Ml)) 25 gm IV PRN PRN PRN Reason: Protocol Stop: 05/27/17 18:15 Dextrose (Dextrose Inj 50% Syringe (25 Gm/50 Ml)) 12.5 gm IV PRN PRN; Protocol PRN Reason: FOR BG 50-69 IN ALERT PATIENT Stop: 05/28/17 06:04 Dextrose (Dextrose Inj 50% Syringe (25 Gm/50 Ml)) 25 gm IV PRN PRN PRN Reason: Protocol Stop: 05/28/17 06:04 Escitalopram Oxalate (Lexapro 10 Mg Tablet) 20 mg PO QHS [facility] Stop: 05/27/17 21:59 Last Admin: 04/27/17 21:23 Dose: 20 mg Gabapentin (Neurontin 300 Mg Capsule) 900 mg PO Q12 [facility] Stop: 05/27/17 21:59 Last Admin: 04/27/17 21:23 Dose: 900 mg Glucagon (Glucagen Inj 1 Mg Vial) 1 mg IM PRN PRN; Protocol PRN Reason: Evaluate for BG < 70 Stop: 05/27/17 18:15 Glucagon (Glucagen Inj 1 Mg Vial) 1 mg IM PRN PRN; Protocol PRN Reason: Evaluate for BG < 70 Stop: 05/28/17 06:04 Glucose (Glutose 40% Gel 15 Gm Tube) 15 gm PO PRN PRN; Protocol PRN Reason: FOR BG 50-69 IN ALERT PATIENT Stop: 05/27/17 18:15 Glucose (Glutose 40% Gel 15 Gm Tube) 30 gm PO PRN PRN; Protocol PRN Reason: FOR BG < 50 IN ALERT PATIENT Stop: 05/27/17 18:15 Glucose (Glutose 40% Gel 15 Gm Tube) 15 gm PO PRN PRN; Protocol PRN Reason: FOR BG 50-69 IN ALERT PATIENT Stop: 05/28/17 06:04 Glucose (Glutose 40% Gel 15 Gm Tube) 30 gm PO PRN PRN; Protocol PRN Reason: FOR BG < 50 IN ALERT PATIENT Stop: 05/28/17 06:04 Heparin Sodium (Porcine) (Heparin Inj 5,000 Units/Ml 1 Ml Syringe) 5,000 unit SUBCUT Q8 [facility] Stop: 05/27/17 21:59 Last Admin: 04/28/17 05:43 Dose: 5,000 unit Hydromorphone HCl (Dilaudid Inj/Pf 2 Mg/Ml Ampule) 1 mg IV Q2HP PRN PRN Reason: BREAKTHROUGH PAIN Stop: 05/05/17 04:56 Last Admin: 04/28/17 05:43 Dose: 1 mg Insulin Human Lispro (Humalog Insulin 100 Unit/1 Ml 3 Ml Vial) 0 - 12 unit SUBCUT ACHSP PRN PRN Reason: Protocol Stop: 05/27/17 18:15 Lansoprazole (Prevacid 30 Mg Odt Tablet) 30 mg PO BID [facility] Stop: 05/27/17 17:59 Last Admin: 04/27/17 17:53 Dose: 30 mg Multivit/Ca Carb/B Cmplx/FA/Prenat (Nephrocaps Multiple Vitamin Capsule) 1 cap PO QHS [place] Stop: 05/28/17 21:59 Oxycodone HCl (Oxy-Ir 5 Mg Tablet) 2.5 mg PO Q4HP PRN PRN Reason: FOR PAIN SCALE 1-3 Stop: 05/04/17 21:29 Last Admin: 04/27/17 21:49 Dose: 2.5 mg Oxycodone/Acetaminophen (Percocet 5-325 Mg Tablet) 1 tab PO Q4HP PRN Stop: 05/04/17 18:16 Last Admin: 04/27/17 19:45 Dose: 1 tab Oxycodone/Acetaminophen (Percocet 5-325 Mg Tablet) 1 tab PO Q4HP PRN PRN Reason: FOR PAIN SCALE 1-3 Stop: 05/04/17 21:28 Last Admin: 04/27/17 21:49 Dose: 1 tab Pharmacy Profile Note (Medication Communication Order) 1 each [facility] .NOTICE NR Stop: 05/27/17 18:29 - Allergies Allergies/Adverse Reactions: No Known Allergies Allergy (Verified 04/20/17 15:13) Hospital Course Hospital Course: 61-year-old male with long-standing history of diabetes and chronic renal disease. Patient developed ulceration in his right lower extremity including osteomyelitis of his calcaneus. He was seen by the wound care clinic and infectious disease at which point recommendation was for below-knee amputation given the poor prognosis of his calcaneus osteomyelitis. On 04/26/17 patient was directly admitted to the orthopedic service for preoperative workup. Patient underwent dialysis on his regular scheduled day and on Sunday morning preoperatively. On 04/27/17 patient underwent spinal anesthesia and ultimately right below-knee amputation. Intra-blood loss was approximately 50 cc there was no intraoperative complication patient was stable to PACU. On the evening of 04/27/17 once the spinal anesthesia brought patient's pain did exacerbate requiring Dilaudid which did provide relief. Morning labs on 04/28/17 demonstrated hyperkalemia and given the fact dialysis is not available in our facility over the weekend patient will require emergent dialysis. Physical Exam Vital Signs: Temp Pulse Resp BP Pulse Ox 97.2 F 90 19 87/47 L 94 04/28/17 08:27 04/28/17 08:27 04/28/17 08:27 04/28/17 08:27 04/28/17 08:27 Intake & Output 04/27/17 04/28/17 04/29/17 06:59 06:59 06:59 Intake Total 300 3450 Output Total 3390 Balance 300 60 Weight 132.7 kg 125.2 kg General appearance: PRESENT: no acute distress, cooperative Head exam: PRESENT: atraumatic, normocephalic Eye exam: PRESENT: EOMI Respiratory exam: PRESENT: unlabored Cardiovascular exam: PRESENT: RRR GI/Abdominal exam: PRESENT: diminished bowel sounds Musculoskeletal exam: PRESENT: other - `Right lower extremity: Dressing clean/ dry/intact. Drain intact. Patient has flexion/extension of the knee without discomfort. Neurological exam: PRESENT: alert, altered, awake, oriented to person, oriented to place, oriented to time, oriented to situation Psychiatric exam: PRESENT: appropriate affect Results Laboratory Results: 04/28/17 04:36 04/28/17 04:36 04/27/17 04/27/17 04/28/17 09:00 13:04 04:36 WBC 11.5 H RBC 3.97 L Hgb 11.6 L Hct 36.8 L MCV 93 MCH 29.1 MCHC 31.5 L RDW 16.2 H Plt Count 226 Sodium 137.2 140.0 Potassium 5.6 H 4.3 D Chloride 98 98 Carbon Dioxide 25 28 Anion Gap 14 14 BUN 41 H 22 H Creatinine 6.56 H 3.81 H Est GFR ( Amer) 10 L 20 L Est GFR (Non-Af Amer) 9 L 16 L Glucose 128 H 82 Calcium 8.6 8.7 04/28/17 04:36 WBC RBC Hgb Hct MCV MCH MCHC RDW Plt Count Sodium 137.4 Potassium 6.7 H* D Chloride 98 Carbon Dioxide 26 Anion Gap 13 BUN 38 H Creatinine 5.99 H Est GFR ( Amer) 12 L Est GFR (Non-Af Amer) 10 L Glucose 337 H Calcium 8.9 04/26/17 18:21 Nasophary (Mrsa Only) MRSA Surveillance Culture - Final MRSA RECOVERED Impressions: Chest X-Ray 04/26/17 00:00 IMPRESSION: Stable moderate cardiomegaly. No acute infiltrates Plan Discharge Plan: Given the patient's history of chronic renal disease and patient hyperkalemia patient requires transfer to a tertiary care facility. Discussed the case with Dr. Dailey who agrees patient requires transfer for urgent/emergent renal dialysis. Mr. Henning is a patient of Dr. Young who regularly does his renal dialysis Sunday and Saturdays. Patient will continue local wound care to his right lower extremity with dressing removed on postop day #3. 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 On 04/28/17 patient will be transferred to tertiary care facility.
[2017-04-28] MEDS ORDERED: NORMAL SALINE 1000 ML 1,000 ML IV PRN (10:42)
[2017-04-28] MEDS: LANSOPRAZOLE 30 MG TAB.RAP.DR PO SCH (10:59)
[2017-04-28] MEDS: GABAPENTIN 300 MG CAPSULE PO SCH (10:59)
[2017-04-28] MEDS ORDERED: DILTIAZEM HCL INJ 25 MG/5 ML VIAL IV ONE (11:00)
--- NOTE | 2017-04-28 13:21 | PDOC PROGRESS REPORT ---
Subjective Progress Note for:: 04/28/17 Subjective:: Testing testing testing patient seen in the hospital today. He is postop Right BKA and is doing well. However he did have a bad night last night because of pain control issues which now is adequately controlled with Dilaudid.However he was hypotensive this morning and the a.m. cortisol that had ordered yesterday came back showing at 1.5 which is quite lower stress situation. Besides that his potassium was found to be high at 6.7 with early EKG changes. Unfortunately we do not have capabilities to dialyze the patient here on the weekend and he is in the process of being transferred to tertiary care. Patient denies any history of chest pain shortness of breath no history of nausea vomiting. Nausea and abdominal pains. He denies orthostasis. Physical Exam Vital Signs: Temp Pulse Resp BP Pulse Ox 97.2 F 78 19 87/47 L 94 04/28/17 08:27 04/28/17 12:08 04/28/17 08:27 04/28/17 08:27 04/28/17 08:27 Intake & Output 04/27/17 04/28/17 04/29/17 06:59 06:59 06:59 Intake Total 300 3450 150 Output Total 3390 Balance 300 60 150 Weight 132.7 kg 125.2 kg General appearance: PRESENT: no acute distress Respiratory exam: PRESENT: clear to auscultation lis. ABSENT: crackles, rhonchi Cardiovascular exam: PRESENT: +S1, +S2, systolic murmur GI/Abdominal exam: PRESENT: soft. ABSENT: organomegaly, tenderness Neurological exam: PRESENT: alert, awake, oriented to person, oriented to place , oriented to time Results Laboratory Results: 04/28/17 04:36 04/27/17 04/28/17 04/28/17 13:04 04:36 04:36 WBC 11.5 H RBC 3.97 L Hgb 11.6 L Hct 36.8 L MCV 93 MCH 29.1 MCHC 31.5 L RDW 16.2 H Plt Count 226 Sodium 140.0 137.4 Potassium 4.3 D 6.7 H* D Chloride 98 98 Carbon Dioxide 28 26 Anion Gap 14 13 BUN 22 H 38 H Creatinine 3.81 H 5.99 H Est GFR ( Amer) 20 L 12 L Est GFR (Non-Af Amer) 16 L 10 L Glucose 82 337 H Calcium 8.7 8.9 04/26/17 18:21 Nasophary (Mrsa Only) MRSA Surveillance Culture - Final MRSA RECOVERED Impressions: Chest X-Ray 04/26/17 00:00 IMPRESSION: Stable moderate cardiomegaly. No acute infiltrates Assessment & Plan - Diagnosis (1) Below knee amputation status Qualifiers: Laterality: right Qualified Code(s): Z89.511 - Acquired absence of right leg below knee Is this a current diagnosis for this admission?: YesPlan: Status post BKA. Stable. (2) End stage renal failure on dialysis Is this a current diagnosis for this admission?: YesPlan: Patient was dialyzed yesterday appropriately. However his potassium today is high at 6.7. Note that the patient got a large solution of LR perioperatively. 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 Will treat appropriately and discussions were done with Dr. Sinha. He has been administered IV calcium insulin dextrose and Kayexalate. Besides that he is being loaded with 200 mg of hydrocortisone as per discussion is done with her. (3) Anemia Qualifiers: Anemia type: due to chronic kidney disease Chronic kidney disease stage : on chronic dialysis Qualified Code(s): N18.6 - End stage renal disease ; D63.1 - Anemia in chronic kidney disease; Z99.2 - Dependence on renal dialysis Is this a current diagnosis for this admission?: Yes (4) Hypotension (arterial) Qualifiers: Hypotension type: other hypotension type Qualified Code(s): I95.89 - Other hypotension Is this a current diagnosis for this admission?: YesPlan: Diagnosed to have Jonas's disease/addisonian crisis as seen by his blood pressure being in the 80 systolic range along with a very low cortisol levels this morning of 1.5. Administered IV hydrocortisone to 200 mg stat followed by every 8 hours of 100 mg. Patient is being transferred and have begun discussions with Dr. Sinha to make sure that the receiving hospital understands the patient's current status and continue to replace him with that and intravenous hydrocortisone which can be converted to p.o. at the point of discharge. (5) Morbid obesity Is this a current diagnosis for this admission?: Yes (6) Obstructive sleep apnea Is this a current diagnosis for this admission?: Yes (7) Hyperkalemia Plan: Severe with the early EKG changes. Appropriate measures have been instituted. Besides that and the constipating factor would be his diagnosis of Jefferson Davis's disease and the hydrocortisone that he has received should also help to correct his his potassium. However given the fact that we do not have dialysis capabilities over the weekend it safe for that is transferred to a tertiary care center where he can be dialyzed hospital today. Discussions were done at length with Dr. Sinha.
[2017-04-28 13:23] LABS: ANION GAP 17 (5-19); BLOOD UREA NITROGEN 42 mg/dL (7-20); CALCIUM 8.4 mg/dL (8.4-10.2); CARBON DIOXIDE 22 mmol/L (22-30); CHLORIDE 99 mmol/L (98-107); CREATININE RESULT 6.28 mg/dL (0.52-1.25); GLUCOSE 177 mg/dL (75-110)
[2017-04-28 13:28] LABS: POTASSIUM 6.1 mmol/L (3.6-5.0)
[2017-04-28] MEDS ORDERED: NALOXONE HCL INJ/PF 0.4 MG/1 ML SDV ONE ×2 (13:37→13:40)
[2017-04-28] MEDS ORDERED: NALOXONE HCL INJ/PF 0.4 MG/1 ML SDV IV ONE ×2 (13:51→13:52)
[2017-04-28] MEDS ORDERED: HYDROCORTISONE SOD SUCCINATE INJ/PF 100 MG/2 ML SDV IV SCH (14:00)
[2017-04-28 14:06] LABS: ARTERIAL BLOOD BASE EXCESS -1.3 mmol/L; ARTERIAL BLOOD O2 SATURATION 93.8 % (94-98)
[2017-04-28 14:07] LABS: HEMATOCRIT 37.4 % (37.9-51.0); HEMOGLOBIN 11.9 g/dL (13.5-17.0); HGB HCT DIFFERENCE -1.7; MEAN CORPUSCULAR HEMOGLOBIN 29.1 pg (27.0-33.4); MEAN CORPUSCULAR HGB CONC 31.8 g/dL (32.0-36.0); MEAN CORPUSCULAR VOLUME 92 fl (80-97); RED BLOOD COUNT 4.08 10^6/uL (4.35-5.55); RED CELL DISTRIBUTION WIDTH 16.5 % (11.5-14.0); WHITE BLOOD COUNT 12.9 10^3/uL (4.0-10.5)
[2017-04-28] MEDS ORDERED: NALOXONE HCL INJ 2 MG/2 ML DISP.SYRIN IV ONE ×2 (14:07→14:14)
[2017-04-28] MEDS ORDERED: LABETALOL HCL INJ 20 MG/4 ML DISP.SYRIN IV PRN (14:21)
[2017-04-28 14:25] LABS: ANION GAP 19 (5-19); BLOOD UREA NITROGEN 45 mg/dL (7-20); CALCIUM 9.6 mg/dL (8.4-10.2); CARBON DIOXIDE 21 mmol/L (22-30); CHLORIDE 99 mmol/L (98-107); CREATINE KINASE 262 U/L (55-170); CREATININE RESULT 6.96 mg/dL (0.52-1.25); GLUCOSE 213 mg/dL (75-110); POTASSIUM 5.6 mmol/L (3.6-5.0); SODIUM 139.4 mmol/L (137-145)
[2017-04-28] MEDS ORDERED: PROPOFOL 100 ML IV ONE (14:25)
[2017-04-28] MEDS ORDERED: LABETALOL HCL INJ 20 MG/4 ML DISP.SYRIN IV ONE (14:25)
[2017-04-28] MEDS ORDERED: OXYCODONE-ACETAMINOPHEN 5-325 MG TABLET NG PRN ×2 (14:28→14:29)
[2017-04-28] MEDS ORDERED: OXYCODONE HCL IR 5 MG TABLET NG PRN (14:28)
[2017-04-28] MEDS ORDERED: PHARMACY COMMUNICATION ORDER MC NR (14:30)
[2017-04-28] MEDS ORDERED: PROPOFOL 100 ML IV PRN (14:32)
[2017-04-28 14:37] LABS: CREATINE KINASE MB 4.87 ng/mL (<4.55); TROPONIN I 0.02 ng/mL
--- NOTE | 2017-04-28 14:48 | PDOC TRANSFER SUMMARY ---
General Admission Date/PCP: 04/26/17 14:35 FADUMO LARA NP Admission Date: 04/27/17 Transfer Date: 04/28/17 Accepting Facility: [facility] Accepting Physician: Dr. Torres Resuscitation Status: Full Code - Transfer Diagnosis (1) Below knee amputation status Is this a current diagnosis for this admission?: Yes (2) End stage renal failure on dialysis Is this a current diagnosis for this admission?: Yes (3) Anemia Is this a current diagnosis for this admission?: Yes (4) Chronic kidney disease (CKD) Is this a current diagnosis for this admission?: Yes (5) Coronary artery disease Is this a current diagnosis for this admission?: Yes (6) Diabetes Is this a current diagnosis for this admission?: Yes (7) GERD (gastroesophageal reflux disease) Is this a current diagnosis for this admission?: Yes (8) Morbid obesity Is this a current diagnosis for this admission?: Yes (9) Obstructive sleep apnea Is this a current diagnosis for this admission?: Yes (10) Acute respiratory failure with hypoxemia Is this a current diagnosis for this admission?: Yes - Transfer Medications Home Medications: Atorvastatin Calcium 10 mg PO QHS 12/07/15 Omeprazole 40 mg PO BID 12/07/15 Calcium Acetate [Phoslo 667 mg Capsule] 2,668 mg PO MEALS 01/13/17 B Complex & C No.20/Folic Acid [Triphrocaps Softgel] 1 mg PO QHS 04/20/17 Clopidogrel Bisulfate [Plavix 75 mg Tablet] 75 mg PO DAILY 04/20/17 Escitalopram Oxalate [Lexapro] 20 mg PO QHS 04/20/17 Gabapentin [Neurontin 300 mg Capsule] 900 mg PO Q12 04/20/17 Aspirin [Ecotrin 325 mg EC Tablet] 325 mg PO DAILY 04/26/17 Insulin Regular, Human [Humulin R (Hi-Dose) Insulin 500 unit/mL] 0 unit PUMP ASDIR PRN 04/26/17 Silver Sulfadiazine [Silver Sulfadiazine] 1 applic TOP BID 04/26/17 Transfer Medications: Current Medications Atorvastatin Calcium (Lipitor 10 Mg Tablet) 10 mg PO QHS [place] Stop: 05/27/17 21:59 Last Admin: 04/27/17 21:22 Dose: 10 mg Calcium Acetate (Phoslo 667 Mg Capsule) 2,668 mg PO MEALS [place] Stop: 05/27/17 16:59 Last Admin: 04/28/17 12:45 Dose: 2,668 mg Dextrose (Dextrose Inj 50% Syringe (25 Gm/50 Ml)) 12.5 gm IV PRN PRN; Protocol PRN Reason: FOR BG 50-69 IN ALERT PATIENT Stop: 05/27/17 18:15 Dextrose (Dextrose Inj 50% Syringe (25 Gm/50 Ml)) 25 gm IV PRN PRN PRN Reason: Protocol Stop: 05/27/17 18:15 Dextrose (Dextrose Inj 50% Syringe (25 Gm/50 Ml)) 12.5 gm IV PRN PRN; Protocol PRN Reason: FOR BG 50-69 IN ALERT PATIENT Stop: 05/28/17 06:04 Dextrose (Dextrose Inj 50% Syringe (25 Gm/50 Ml)) 25 gm IV PRN PRN PRN Reason: Protocol Stop: 05/28/17 06:04 Escitalopram Oxalate (Lexapro 10 Mg Tablet) 20 mg PO QHS [place] Stop: 05/27/17 21:59 Last Admin: 04/27/17 21:23 Dose: 20 mg Gabapentin (Neurontin 300 Mg Capsule) 900 mg PO Q12 [facility] Stop: 05/27/17 21:59 Last Admin: 04/28/17 10:59 Dose: 900 mg Glucagon (Glucagen Inj 1 Mg Vial) 1 mg IM PRN PRN; Protocol PRN Reason: Evaluate for BG < 70 Stop: 05/27/17 18:15 Glucagon (Glucagen Inj 1 Mg Vial) 1 mg IM PRN PRN; Protocol PRN Reason: Evaluate for BG < 70 Stop: 05/28/17 06:04 Glucose (Glutose 40% Gel 15 Gm Tube) 15 gm PO PRN PRN; Protocol PRN Reason: FOR BG 50-69 IN ALERT PATIENT Stop: 05/27/17 18:15 Glucose (Glutose 40% Gel 15 Gm Tube) 30 gm PO PRN PRN; Protocol PRN Reason: FOR BG < 50 IN ALERT PATIENT Stop: 05/27/17 18:15 Glucose (Glutose 40% Gel 15 Gm Tube) 15 gm PO PRN PRN; Protocol PRN Reason: FOR BG 50-69 IN ALERT PATIENT Stop: 05/28/17 06:04 Glucose (Glutose 40% Gel 15 Gm Tube) 30 gm PO PRN PRN; Protocol PRN Reason: FOR BG < 50 IN ALERT PATIENT Stop: 05/28/17 06:04 Heparin Sodium (Porcine) (Heparin Inj 5,000 Units/Ml 1 Ml Syringe) 5,000 unit SUBCUT Q8 [place] Stop: 05/27/17 21:59 Last Admin: 04/28/17 05:43 Dose: 5,000 unit Hydrocortisone Sodium Succinate (Solu-Cortef Inj/Pf 100 Mg/ 2 Ml Sdv) 100 mg IV Q8 [place] Stop: 05/28/17 13:59 Insulin Human Lispro (Humalog Insulin 100 Unit/1 Ml 3 Ml Vial) 0 - 12 unit SUBCUT ACHSP PRN PRN Reason: Protocol Stop: 05/27/17 18:15 Lansoprazole (Prevacid 30 Mg Odt Tablet) 30 mg PO BID [place] Stop: 05/27/17 17:59 Last Admin: 04/28/17 10:59 Dose: 30 mg Multivit/Ca Carb/B Cmplx/FA/Prenat (Nephrocaps Multiple Vitamin Capsule) 1 cap PO QHS [place] Stop: 05/28/17 21:59 Naloxone HCl (Narcan Inj 2 Mg/2 Ml Disp.Syrin) 2 mg IV NOW ONE Stop: 04/28/17 14:15 Oxycodone HCl (Oxy-Ir 5 Mg Tablet) 2.5 mg PO Q4HP PRN PRN Reason: FOR PAIN SCALE 1-3 Stop: 05/04/17 21:29 Last Admin: 04/27/17 21:49 Dose: 2.5 mg Oxycodone/Acetaminophen (Percocet 5-325 Mg Tablet) 1 tab PO Q4HP PRN Stop: 05/04/17 18:16 Last Admin: 04/27/17 19:45 Dose: 1 tab Oxycodone/Acetaminophen (Percocet 5-325 Mg Tablet) 1 tab PO Q4HP PRN PRN Reason: FOR PAIN SCALE 1-3 Stop: 05/04/17 21:28 Last Admin: 04/27/17 21:49 Dose: 1 tab Pharmacy Profile Note (Medication Communication Order) 1 each [facility] .NOTICE NR Stop: 05/27/17 18:29 - Allergies Allergies/Adverse Reactions: No Known Allergies Allergy (Verified 04/20/17 15:13) Hospital Course Hospital Course: Interm development. Pt found to be in [place]'s crisis and had been given Cortef 250mg x1. Called by nursing for unresponsive. Patient had received 1mg IV dilaudid before this. Given 0.4mg narcan IV x2, no response. FSBS found to be 197. Insulin pump removed. Patient repeat K 6.1 troponin 0.020. Given calcium gluconate 1,000mg x1. Labs obtained and transferred to the ICU. Patient at that time found to be hypertensive 182/90's and given 10mg of IV labetolol. Pt not protecting airway and intubated with attempt x3 and subsequent aspiration. NG placed. Patient given Propofol and Rocuronium for sedation. CK and MB elevated. Patient in sinus and history of a-fib. Aspirin and plavix had been held for 5 days prior to surgery. Patient had received heparin for DVT ppx. Physical Exam Vital Signs: Temp Pulse Resp BP Pulse Ox 97.2 F 78 19 87/47 L 94 04/28/17 08:27 04/28/17 12:08 04/28/17 08:27 04/28/17 08:27 04/28/17 08:27 Intake & Output 04/27/17 04/28/17 04/29/17 06:59 06:59 06:59 Intake Total 300 3450 150 Output Total 3390 Balance 300 60 150 Weight 132.7 kg 125.2 kg General appearance: PRESENT: morbidly obese Head exam: PRESENT: atraumatic Eye exam: PRESENT: EOMI, PERRLA. ABSENT: scleral icterus Ear exam: PRESENT: normal external ear exam Mouth exam: PRESENT: moist Neck exam: PRESENT: JVD. ABSENT: lymphadenopathy, tracheal deviation Cardiovascular exam: PRESENT: irregular rhythm, +S1, +S2, systolic murmur. ABSENT: diastolic murmur, gallop GI/Abdominal exam: PRESENT: diminished bowel sounds, hernia, soft. ABSENT: firm , guarding, Ardon's sign, rebound, rigid, tenderness Extremities exam: PRESENT: other - bilateral BKA Neurological exam: PRESENT: other - obtunded Skin exam: PRESENT: other - daiphoretic Results Laboratory Results: 04/28/17 13:54 04/28/17 04/28/17 04/28/17 04:36 04:36 12:17 WBC 11.5 H RBC 3.97 L Hgb 11.6 L Hct 36.8 L MCV 93 MCH 29.1 MCHC 31.5 L RDW 16.2 H Plt Count 226 Carbonic Acid HCO3/H2CO3 Ratio ABG pH ABG pCO2 ABG pO2 ABG HCO3 ABG O2 Saturation ABG Base Excess FiO2 Sodium 137.4 138.0 Potassium 6.7 H* D 6.1 H* Chloride 98 99 Carbon Dioxide 26 22 Anion Gap 13 17 BUN 38 H 42 H Creatinine 5.99 H 6.28 H Est GFR ( Amer) 12 L 11 L Est GFR (Non-Af Amer) 10 L 9 L Glucose 337 H 177 H Calcium 8.9 8.4 04/28/17 04/28/17 13:50 13:54 WBC 12.9 H RBC 4.08 L Hgb 11.9 L Hct 37.4 L MCV 92 MCH 29.1 MCHC 31.8 L RDW 16.5 H Plt Count 239 Carbonic Acid 1.28 HCO3/H2CO3 Ratio 18:1 ABG pH 7.37 ABG pCO2 42.6 ABG pO2 70.7 L ABG HCO3 24.0 ABG O2 Saturation 93.8 L ABG Base Excess -1.3 FiO2 3L Sodium Potassium Chloride Carbon Dioxide Anion Gap BUN Creatinine Est GFR ( Amer) Est GFR (Non-Af Amer) Glucose Calcium 04/26/17 18:21 Nasophary (Mrsa Only) MRSA Surveillance Culture - Final MRSA RECOVERED Impressions: Chest X-Ray 04/26/17 00:00 IMPRESSION: Stable moderate cardiomegaly. No acute infiltrates Plan Time Spent: Greater than 30 Minutes
[2017-04-28] MEDS ORDERED: PROPOFOL INJ 200 MG/20 ML VIAL IV ONE (15:03)
--- NOTE | 2017-04-28 15:09 | RADIOLOGY REPORT (SQ) ---
EXAM DESCRIPTION: CHEST SINGLE VIEW COMPLETED DATE/TIME: 04/28/2017 3:01 pm REASON FOR STUDY: intubation COMPARISON: 04/26/2017 EXAM PARAMETERS: NUMBER OF VIEWS: One view. TECHNIQUE: Single frontal radiographic view of the chest acquired. RADIATION DOSE: NA LIMITATIONS: Patient has made a shallow inspiration. FINDINGS: LUNGS AND PLEURA: No opacities, masses or pneumothorax. No pleural effusion. MEDIASTINUM AND HILAR STRUCTURES: No masses. Contour normal. HEART AND VASCULAR STRUCTURES: The configuration of the heart and mediastinal structures is unchanged . BONES: No acute findings. HARDWARE: Endotracheal tube is seen with its tip the level of the thoracic inlet. OTHER: No other significant finding. IMPRESSION: Endotracheal tube with its tip at the level of the thoracic inlet. No other significant interval change. TECHNICAL DOCUMENTATION: JOB ID: [id number]
[2017-04-28 15:21] VITALS: BP 138/80
--- NOTE | 2017-04-28 16:36 | EKG REPORT ---
SEVERITY:- ABNORMAL ECG - SINUS RHYTHM FIRST DEGREE AV BLOCK LEFT AXIS DEVIATION CONSIDER ANTEROSEPTAL INFARCT : Confirmed by: Jayesh Lopez MD 28-Apr-2017 16:35:41
[2017-04-28] MEDS ORDERED: CALCIUM ACETATE 667 MG CAPSULE NG SCH (17:00)
[2017-04-28] MEDS ORDERED: LANSOPRAZOLE 30 MG TAB.RAP.DR NG SCH (18:00)
[2017-04-28] MEDS ORDERED: ESCITALOPRAM OXALATE 10 MG TABLET NG SCH (22:00)
[2017-04-28] MEDS ORDERED: ATORVASTATIN CALCIUM 10 MG TABLET NG SCH (22:00)
[2017-04-28] MEDS ORDERED: FOLIC ACID/VITAMIN B COMP W-C CAPSULE NG SCH (22:00)
[2017-04-28] MEDS ORDERED: GABAPENTIN 300 MG CAPSULE NG SCH (22:00)
== END 2017-04-28 13:35 | disposition short-term general hospital (02) | DRG 616 ==
LOC: 4N 14:35 → 3S 04-28 11:07 → ICU 04-28 14:09
PROVIDERS: ADMIT Orthopaedic Surgery; ATTEND Orthopaedic Surgery
PROC: 5A1D00Z (ICD-10-PCS; 2017-04-27)
PROC: 0Y6H0Z3 Detachment at Right Lower Leg, Low, Open Approach (ICD-10-PCS; principal; 2017-04-27 14:30)
PROC: 0BH17EZ Insertion of Endotracheal Airway into Trachea, Via Natural or Artificial Opening (ICD-10-PCS; 2017-04-28)
DX: E11.69 Type 2 diabetes mellitus with other specified complication (principal); J96.01 Acute respiratory failure with hypoxia; M86.171 Other acute osteomyelitis, right ankle and foot; E27.1 Primary adrenocortical insufficiency; N18.6 End stage renal disease; D63.1 Anemia in chronic kidney disease; E87.5 Hyperkalemia; I25.10 Atherosclerotic heart disease of native coronary artery without angina pectoris; K21.9 Gastro-esophageal reflux disease without esophagitis; E78.5 Hyperlipidemia, unspecified; I48.2 Chronic atrial fibrillation; I95.89 Other hypotension; G47.33 Obstructive sleep apnea (adult) (pediatric); E66.01 Morbid (severe) obesity due to excess calories; I25.2 Old myocardial infarction; Z79.01 Long term (current) use of anticoagulants; Z79.82 Long term (current) use of aspirin; Z79.4 Long term (current) use of insulin; Z79.899 Other long term (current) drug therapy; Z89.512 Acquired absence of left leg below knee; Z95.5 Presence of coronary angioplasty implant and graft; Z22.322 Carrier or suspected carrier of Methicillin resistant Staphylococcus aureus; Z68.39 Body mass index [BMI] 39.0-39.9, adult; Z99.2 Dependence on renal dialysis
CPT/HCPCS: 1482; 31500; 36415; 36600; 71010; 80048; 82533; 82550; 82553; 82803; 82962; 83735; 84484; 85025; 85027; 85610; 85730; 88307; 93005; 93010; 94002; 94640; 94660; J0131; J0610; J1100; J1170; J1644; J1720; J1815; J2250; J2270; J2310; J2370; J2405; J2704; J3010; J3370; J3490; J7030; J7060; J7620

== ENCOUNTER 2017-05-25 09:05 | Inpatient (IN) | payer MEDICARE, OTHER ==
[2017-05-25] MEDS ORDERED: NORMAL SALINE 500 ML IV ONE (09:22)
--- NOTE | 2017-05-25 10:20 | RADIOLOGY REPORT (SQ) ---
EXAM DESCRIPTION: CHEST PA/LAT COMPLETED DATE/TIME: 05/25/2017 9:53 am REASON FOR STUDY: weakness COMPARISON: 01/13/2017 EXAM PARAMETERS: NUMBER OF VIEWS: two views TECHNIQUE: Digital Frontal and Lateral radiographic views of the chest acquired. RADIATION DOSE: NA LIMITATIONS: none FINDINGS: LUNGS AND PLEURA: Subsegmental atelectasis is present in the right base. A limited infilt rate cannot be ruled out in the left base because the left hemidiaphragm is indistinct. MEDIASTINUM AND HILAR STRUCTURES: No masses or contour abnormalities. HEART AND VASCULAR STRUCTURES: Cardiomegaly without alem CHF. BONES: No acute findings. HARDWARE: None in the chest. OTHER: No other significant finding. IMPRESSION: 1. Cardiomegaly without alem CHF. 2. A limited left lower lobe infiltrate cannot be ruled out. TECHNICAL DOCUMENTATION: JOB ID: [id number] [employer]- All Rights Reserved
[2017-05-25 10:54] LABS: ABSOLUTE EOSINOPHILS # (AUTO) 0.1 10^3/uL (0.0-0.6); ABSOLUTE LYMPHOCYTES (AUTO) 0.6 10^3/uL (0.5-4.7); ABSOLUTE MONOCYTES (AUTO) 0.5 10^3/uL (0.1-1.4); ABSOLUTE NEUT (AUTO) 5.5 10^3/uL (1.7-8.2); BASOPHILS % (AUTO) 0.6 % (0-2); EOSINOPHILS % (AUTO) 1.4 % (0-6); HEMATOCRIT 33.4 % (37.9-51.0); HEMOGLOBIN 10.9 g/dL (13.5-17.0); HGB HCT DIFFERENCE -0.7; LYMPHOCYTES % (AUTO) 8.4 % (13-45); MEAN CORPUSCULAR HEMOGLOBIN 30.4 pg (27.0-33.4); MEAN CORPUSCULAR HGB CONC 32.5 g/dL (32.0-36.0); MEAN CORPUSCULAR VOLUME 94 fl (80-97); MONOCYTES % (AUTO) 7.1 % (3-13); RED BLOOD COUNT 3.57 10^6/uL (4.35-5.55); RED CELL DISTRIBUTION WIDTH 17.6 % (11.5-14.0); SEGMENTED NEUTROPHILS % (AUTO) 82.5 % (42-78); WHITE BLOOD COUNT 6.7 10^3/uL (4.0-10.5)
[2017-05-25 10:57] LABS: VENOUS BLOOD BASE EXCESS -2.9 mmol/L; VENOUS BLOOD HCO3 22.6 mmol/L (20-32); VENOUS BLOOD PCO2 41.8 mmHg (35-63); VENOUS BLOOD PH 7.35 (7.30-7.42)
[2017-05-25 11:16] LABS: ALANINE AMINOTRANSFERASE 33 U/L (21-72); ALBUMIN 3.5 g/dL (3.5-5.0); ALKALINE PHOSPHATASE 217 U/L (38-126); ANION GAP 14 (5-19); ASPARTATE AMINO TRANSFERASE 14 U/L (17-59); BILIRUBIN,DIRECT 0.4 mg/dL (0.0-0.4); BILIRUBIN,TOTAL 0.5 mg/dL (0.2-1.3); BLOOD UREA NITROGEN 30 mg/dL (7-20); CALCIUM 8.1 mg/dL (8.4-10.2); CARBON DIOXIDE 22 mmol/L (22-30); CHLORIDE 105 mmol/L (98-107); CREATININE RESULT 5.16 mg/dL (0.52-1.25); LIPASE 93.7 U/L (23-300); POTASSIUM 4.5 mmol/L (3.6-5.0); SODIUM 140.9 mmol/L (137-145)
[2017-05-25] MEDS ORDERED: LEVOFLOXACIN 500 MG/D5W RTU 100 ML IV ONE (11:17)
[2017-05-25 11:28] LABS: GLUCOSE 462 mg/dL (75-110)
[2017-05-25] MEDS ORDERED: INSULIN REG, HUMAN 100 UNIT/ML 3 ML VIAL (PYX) SUBCUT ONE (12:08)
--- NOTE | 2017-05-25 13:01 | EKG REPORT ---
SEVERITY:- ABNORMAL ECG - SINUS RHYTHM MOBITZ I AV BLOCK (W[place]KEBACH) LEFT AXIS DEVIATION CONSIDER ANTEROSEPTAL INFARCT BORDERLINE PROLONGED QT INTERVAL : Confirmed by: Jayesh Lopez MD 25-May-2017 13:01:03
--- NOTE | 2017-05-25 13:42 | RADIOLOGY REPORT (SQ) ---
EXAM DESCRIPTION: CT HEAD WITHOUT COMPLETED DATE/TIME: 05/25/2017 1:13 pm REASON FOR STUDY: ams COMPARISON: 02/26/2016 TECHNIQUE: Axial images acquired through the brain without intravenous contrast. Images reviewed wi th bone, brain and subdural windows. Images stored on PACS. All CT scanners at this facility use dose modulation, iterative reconstruction, and/or weight based d osing when appropriate to reduce radiation dose to as low as reasonably achievable (ALARA). [facility]: Dose Right [facility]: CareDose [facility]: Dose Right [facility]: Teradose 4D [facility]: [employer] RADIATION DOSE: Up-to-date CT equipment and radiation dose reduction techniques were employed. CTDIv ol: 63.8 mGy. DLP: 1163 mGy-cm. mGy. LIMITATIONS: None. FINDINGS: VENTRICLES: Normal size and contour. CEREBRUM: Cortical atrophy. Faintly defined small areas of decreased attenuation in the white matter tracts. No masses. No hemorrhage. No midline shift. Normal wick/white matter differentiation. N o evidence for acute infarction. CEREBELLUM: No masses. No hemorrhage. No alteration of density. No evidence for acute infarction. EXTRAAXIAL SPACES: No fluid collections. No masses. ORBITS AND GLOBE: No intra- or extraconal masses. Normal contour of globe without masses. CALVARIUM: No fracture. PARANASAL SINUSES: No fluid or mucosal thickening. SOFT TISSUES: No mass or hematoma. OTHER: No other significant finding. IMPRESSION: Mild involutional changes of aging with microvascular ischemic disease and no acute intr acranial pathology. TECHNICAL DOCUMENTATION: JOB ID: [id number] Quality ID # [id number]: Final reports with documentation of one or more dose reduction techniques (e.g., Au tomated exposure control, adjustment of the mA and/or kV according to patient size, use of iterative reconstruction technique) 2010 [employer]- All Rights Reserved
--- NOTE | 2017-05-25 14:09 | ER Document Report ---
ED General - General Chief Complaint: High Blood Sugar Stated Complaint: HIGH BLOOD SUGAR Time Seen by Provider: 05/25/17 09:21 TRAVEL OUTSIDE OF THE [place] IN LAST 30 DAYS: No - HPI Patient complains to provider of: Elevated blood sugar generalized weakness Notes: Patient coming in for elevated blood sugar generalized weakness patient recently had a right BKA has a history of a left BKA states this morning blood sugar was elevated patient otherwise is feeling generally unwell. Denies any fevers or chills. Patient is also on dialysis due to end-stage renal failure states he did receive his dialysis day prior to arrival. Denies any fever chills nausea vomiting denies chest pain - Related Data Allergies/Adverse Reactions: No Known Allergies Allergy (Verified 04/20/17 15:13) Past Medical History - Social History Smoking Status: Unknown if Ever Smoked Family History: DM, Hypertension Patient has suicidal ideation: No Patient has homicidal ideation: No - Past Medical History Cardiac Medical History: Reports: Hx Coronary Artery Disease, Hx Heart Attack - 2001, STENTS X2 DR [employer], Hx Hypercholesterolemia, Hx Heart Murmur Denies: Hx Atrial Fibrillation, Hx Congestive Heart Failure, Hx Hypertension , Hx Peripheral Vascular Disease, Hx Pulmonary Embolism Pulmonary Medical History: Reports: Hx Pneumonia, Hx Respiratory Failure, Hx Sleep Apnea Denies: Hx Asthma, Hx Bronchitis, Hx COPD Neurological Medical History: Denies: Hx Cerebrovascular Accident, Hx Seizures Endocrine Medical History: Reports: Hx Diabetes Mellitus Type 2. Denies: Hx Graves' Disease, Hx Hyperthyroidism, Hx Hypothyroidism Renal/ Medical History: Reports: Hx End Stage Renal Disease, Hx Hemodialysis. Denies: Hx Benign Prostatic Hyperplasia, Hx Kidney Stones, Hx Peritoneal Dialysis Malignancy Medical History: Denies Hx Leukemia, Denies Hx Lung Cancer GI Medical History: Reports: Hx Gastroesophageal Reflux Disease, Hx Irritable Bowel, Hx Ulcer. Denies: Hx Crohn's Disease, Hx Hepatitis, Hx Hiatal Hernia, Hx Liver Failure Musculoskeltal Medical History: Reports Hx Arthritis, Denies Hx Fibromyalgia, Denies Hx Muscular Dystrophy, Reports Hx Musculoskeletal Deformity - Left BKA Skin Medical History: Reports Hx Cellulitis Psychiatric Medical History: Reports: Hx Depression, Hx Post Traumatic Stress Disorder Denies: Hx Bipolar Disorder, Hx Schizophrenia Traumatic Medical History: Reports: Hx Fractures - Left ankle Infectious Medical History: Reports: Hx MRSA, Hx VRE. Denies: Hx Hepatitis, Hx HIV Past Surgical History: Reports: Hx Bowel Surgery - ruptured bowel, Hx Colostomy - reversed, Hx Orthopedic Surgery - Left rotator cuff x2, right rotator cuff x1 left BKA, Hx Tonsillectomy. Denies: Hx Appendectomy, Hx Cholecystectomy, Hx Coronary Artery Bypass Graft, Hx Gastric Bypass Surgery, Hx Herniorrhaphy, Hx Open Heart Surgery, Hx Pacemaker - Immunizations Hx Diphtheria, Pertussis, Tetanus Vaccination: Yes Hx Pneumococcal Vaccination: 12/30/11 Review of Systems - Review of Systems Constitutional: Weakness, Other - Elevated blood sugar EENT: No symptoms reported Cardiovascular: No symptoms reported Respiratory: No symptoms reported Gastrointestinal: No symptoms reported Genitourinary: No symptoms reported Male Genitourinary: No symptoms reported Musculoskeletal: No symptoms reported Skin: No symptoms reported Hematologic/Lymphatic: No symptoms reported Neurological/Psychological: No symptoms reported -: Yes All other systems reviewed and negative Physical Exam - Vital signs Vitals: Resp BP Pulse Ox 21 H 130/77 H 98 05/25/17 09:17 05/25/17 09:17 05/25/17 09:17 Interpretation: Normal - General General appearance: Appears well, Alert - HEENT Head: Normocephalic, Atraumatic Eyes: Normal Pupils: PERRL - Respiratory Respiratory status: No respiratory distress Chest status: Nontender Breath sounds: Normal Chest palpation: Normal - Cardiovascular Rhythm: Regular Heart sounds: Normal auscultation Murmur: No - Abdominal Inspection: Normal Distension: No distension Bowel sounds: Normal Tenderness: Nontender Organomegaly: No organomegaly - Back Back: Normal, Nontender - Extremities General upper extremity: Normal inspection, Nontender, Normal color, Normal ROM , Normal temperature General lower extremity: Nontender, Normal color, Normal ROM, Normal temperature. No: Normal inspection - Bilateral BKA's - Neurological Neuro grossly intact: Yes Cognition: Normal Orientation: AAOx4 [place] Coma Scale Eye Opening: Spontaneous [place] Coma Scale Verbal: Oriented [place] Coma Scale Motor: Obeys Commands [place] Coma Scale Total: 15 Speech: Normal Motor strength normal: LUE, RUE, LLE, RLE Sensory: Normal - Psychological Associated symptoms: Normal affect, Normal mood - Skin Skin Temperature: Warm Skin Moisture: Dry Skin Color: Normal Course - Re-evaluation Re-evalutation: 05/25/17 15:28 Patient laboratory findings that show signs of elevated glucose no signs of DKA or HH S. Chest x-ray is concerning for pneumonia upon evaluating patient patient now has mild confusion family is now at bedside states that this been ongoing intermittently for the last few days. Patient had a head CT performed showing no acute pathology. Patient was given a dose of Levaquin. Patient now requiring oxygen is that he did become mildly hypoxic here in the ER with a oxygen saturation of 88. Discussed with hospitalist agrees with admission - Vital Signs Vital signs: Temp Pulse Resp BP Pulse Ox 97.7 F 80 14 143/74 H 97 05/25/17 09:27 05/25/17 09:27 05/25/17 12:01 05/25/17 12:01 05/25/17 12:01 - Laboratory Result Diagrams: 05/25/17 10:41 05/25/17 10:41 Laboratory results interpreted by me: 05/25/17 05/25/17 05/25/17 10:41 10:41 12:50 RBC 3.57 L Hgb 10.9 L Hct 33.4 L RDW 17.6 H Seg Neutrophils % 82.5 H Lymphocytes % 8.4 L BUN 30 H Creatinine 5.16 H Est GFR ( Amer) 14 L Est GFR (Non-Af Amer) 11 L Glucose 462 H* POC Glucose 385 H Calcium 8.1 L AST 14 L Alkaline Phosphatase 217 H Total Protein 6.0 L Critical Care Note - Critical Care Note Total time excluding time spent on procedures (mins): 35 Comments: Multiple evaluations to the patient with hypoxia and pneumonia requiring oxygen admission Discharge - Discharge Clinical Impression: End stage renal failure on dialysis, Postoperative pneumonia, Hypoxemia requiring supplemental oxygen Admitting Provider: [facility] Admitted: [facility]
[2017-05-25] MEDS ORDERED: NORMAL SALINE 1000 ML 1,000 ML IV PRN (14:25)
[2017-05-25] MEDS ORDERED: LEVALBUTEROL HCL NEB 1.25 MG/3 ML AMPUL NEB PRN (14:25)
[2017-05-25] MEDS ORDERED: ACETAMINOPHEN 325 MG TABLET PO PRN (14:25)
[2017-05-25] MEDS ORDERED: PHARMACY COMMUNICATION ORDER MC NR (14:30)
[2017-05-25] MEDS ORDERED: GLUCAGON,HUMAN RECOMB 1 MG INJ IM PRN (14:39)
[2017-05-25] MEDS ORDERED: NORMAL SALINE 100 ML with INSULIN REGULAR, HUMAN 100 UNIT IV PRN ×2 (14:39)
[2017-05-25] MEDS ORDERED: DEXTROSE 40% GEL 15 GM TUBE PO PRN ×2 (14:39)
[2017-05-25] MEDS ORDERED: DEXTROSE 50%-WATER 25 GM/50 ML DISP.SYRIN IV PRN ×2 (14:39)
--- NOTE | 2017-05-25 15:20 | PDOC H&P ---
History of Present Illness Admission Date/PCP: JOHNNY MCALLISTER MD History of Present Illness: SHARONDA SU is a 62 year old male with a past medical history significant for diabetes mellitus type 1.5, JOSÉ, hypertension, cad, prostate cancer, end-stage renal disease on hemodialysis, and osteomyelitis resulting in bilateral lower extremity amputations who was recently admitted here from 04/27/2017- 04/28/2017 when he required emergent dialysis. Patient subsequently had gone to [facility] for rehabilitation. Patient has been home since Sunday. Patient's significant other who is present at bedside reports that he woke up today and reported that he was not feeling well. She reports that he then asked to take his blood sugar and it was reading over 400. She reports that his insulin pump has recently broken patient is now on Lantus. She did say he did see his primary care provider yesterday. He also has recently been started on baclofen for back pain. Patient also normally uses CPAP and his CPAP machine is also broken. Upon presentation to the emergency department patient is found to be altered and lethargic with sonorous respirations, he does arouse to deep stimuli, and was found on chest x-ray to have a right lower lobe infiltrate consistent with pneumonia. Patient was also found to be hyperglycemic without diabetic ketoacidosis. Patient is referred to the hospitalist service for admission. Patient's medications are currently being reconciled and current list is automatically generated by [employer], but my own personal review reveals Gabapentin 300 mg p.o. 3 times daily, escitalopram 20 mg p.o. daily, atorvastatin 10 mg p.o. daily, Plavix 75 mg p.o. daily, multivitamin, Nephrocaps , Lantus 15 units subcu daily, sliding scale insulin, calcitriol 0.25 mcg p.o. daily, Flagyl 500 mg 1 tab p.o. every 6, promethazine 25 mg p.o. every 4-6 as needed nausea, Vicodin 5/325 1 tab p.o. every 4-6 as needed pain, calcium acetate 667 mg, Flagyl and baclofen 10 mg p.o. 3 times daily. 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 [employer] NUCLEAR MEDICINE, Hyperlipidema, Heart Murmur Denies: Atrial Fibrillation, Congestive Heart Failure, Hypertension, Peripheral Vascular Disease, Pulmonary Embolism Pulmonary Medical History: Reports: Pneumonia, Respiratory Failure, Sleep Apnea Denies: Asthma, Bronchitis, Chronic Obstructive Pulmonary Disease (COPD) Neurological Medical History: Denies: Seizures Endocrine Medical History: Reports: Diabetes Mellitus Type 2 Denies: Hyperthyroidism, Hypothyroidism Renal/ Medical History: Reports: End Stage Renal Disease Malignancy Medical History: Denies: Breast Cancer, Cervical Cancer, Leukemia, Lung Cancer, Ovarian Cancer GI Medical History: Reports: Gastroesophageal Reflux Disease Denies: Crohn's Disease, Hepatitis, Hiatal Hernia Musculoskeltal Medical History: Reports: Arthritis Denies: Fibromyalgia Psychiatric Medical History: Reports: Depression, Post Traumatic Stress Disorder Denies: Bipolar Disorder Hematology: Denies: Anemia, Hemophilia, Sickle Cell Disease Infectious Medical History: Reports: Methicillin-Resistant Staph Aureus, Vancomycin-Resistant Enterococci Denies: HIV Past Surgical History Past Surgical History: Reports: Colostomy - reversed, Orthopedic Surgery - Left rotator cuff x2, right rotator cuff x1 left BKA, Tonsillectomy Denies: Appendectomy, Cholecystectomy, Coronary Artery Bypass Graft, Gastric Bypass Surgery, Herniorrhaphy, Pacemaker Social History Smoking Status: Never Smoker Frequency of Alcohol Use: Rare Hx Recreational Drug Use: No Drugs: None Hx Prescription Drug Abuse: No - Advance Directive Resuscitation Status: Full Code Surrogate healthcare decision maker:: Daniel, significant other Family History Family History: DM, Hypertension Parental Family History Reviewed: Yes Children Family History Reviewed: Yes Sibling(s) Family History Reviewed.: Yes Medication/Allergy Allergies/Adverse Reactions: No Known Allergies Allergy (Verified 04/20/17 15:13) Review of Systems ROS unobtainable: Due to mental status Physical Exam Vital Signs: Temp Pulse Resp BP Pulse Ox 97.7 F 80 14 143/74 H 97 05/25/17 09:27 05/25/17 09:27 05/25/17 12:01 05/25/17 12:01 05/25/17 12:01 Intake & Output 05/24/17 05/25/17 05/26/17 06:59 06:59 06:59 Weight 128 kg General appearance: PRESENT: mild distress, morbidly obese, well-developed, well -nourished Head exam: PRESENT: atraumatic, normocephalic Eye exam: PRESENT: conjunctiva pink, EOMI, PERRLA. ABSENT: conjunctival injection, conjunctiva pale, scleral icterus Ear exam: PRESENT: normal external ear exam Mouth exam: PRESENT: moist, tongue midline Neck exam: ABSENT: JVD, lymphadenopathy, thyromegaly, tracheal deviation Respiratory exam: PRESENT: clear to auscultation lis, unlabored, other - Sonorous respirations. ABSENT: accessory muscle use, rales, retraction, rhonchi , tachypnea, wheezes Cardiovascular exam: PRESENT: RRR, +S1, +S2, systolic murmur. ABSENT: diastolic murmur, rubs Pulses: PRESENT: normal dorsalis pedis pul Vascular exam: PRESENT: normal capillary refill GI/Abdominal exam: PRESENT: normal bowel sounds, soft. ABSENT: distended, firm , guarding, mass, Ardon's sign, organolmegaly, rebound, rigid, tenderness Rectal exam: PRESENT: deferred Extremities exam: ABSENT: clubbing Musculoskeletal exam: PRESENT: other - Mild surrounding bilateral lower extremity amputee, damon intact and right stump reactive erythema Neurological exam: PRESENT: altered, CN II-XII grossly intact, other - Lethargic but arousable. ABSENT: motor sensory deficit Psychiatric exam: PRESENT: other - Lethargic but arousable. ABSENT: homicidal ideation, suicidal ideation Skin exam: PRESENT: dry, intact, warm. ABSENT: cyanosis, rash Results Laboratory Results: 05/25/17 10:41 05/25/17 10:41 05/25/17 05/25/17 05/25/17 10:41 10:41 10:41 WBC 6.7 RBC 3.57 L Hgb 10.9 L Hct 33.4 L MCV 94 MCH 30.4 MCHC 32.5 RDW 17.6 H Plt Count 159 Seg Neutrophils % 82.5 H Lymphocytes % 8.4 L Monocytes % 7.1 Eosinophils % 1.4 Basophils % 0.6 Absolute Neutrophils 5.5 Absolute Lymphocytes 0.6 Absolute Monocytes 0.5 Absolute Eosinophils 0.1 Absolute Basophils 0.0 VBG pH 7.35 VBG pCO2 41.8 VBG HCO3 22.6 VBG Base Excess -2.9 Sodium 140.9 Potassium 4.5 Chloride 105 Carbon Dioxide 22 Anion Gap 14 BUN 30 H Creatinine 5.16 H Est GFR ( Amer) 14 L Est GFR (Non-Af Amer) 11 L Glucose 462 H* Lactic Acid Calcium 8.1 L Total Bilirubin 0.5 AST 14 L ALT 33 Alkaline Phosphatase 217 H Total Protein 6.0 L Albumin 3.5 Lipase 93.7 05/25/17 10:41 WBC RBC Hgb Hct MCV MCH MCHC RDW Plt Count Seg Neutrophils % Lymphocytes % Monocytes % Eosinophils % Basophils % Absolute Neutrophils Absolute Lymphocytes Absolute Monocytes Absolute Eosinophils Absolute Basophils VBG pH VBG pCO2 VBG HCO3 VBG Base Excess Sodium Potassium Chloride Carbon Dioxide Anion Gap BUN Creatinine Est GFR ( Amer) Est GFR (Non-Af Amer) Glucose Lactic Acid 1.1 Calcium Total Bilirubin AST ALT Alkaline Phosphatase Total Protein Albumin Lipase Impressions: Chest X-Ray 05/25/17 09:23 IMPRESSION: 1. Cardiomegaly without alem CHF. 2. A limited left lower lobe infiltrate cannot be ruled out. Head CT 05/25/17 12:38 IMPRESSION: Mild involutional changes of aging with microvascular ischemic disease and no acute intracranial pathology. Status: Imported from PACS Assessment & Plan - Diagnosis (1) Postoperative pneumonia Is this a current diagnosis for this admission?: YesPlan: Place patient on Levaquin, cefepime, and Zyvox. Scheduled nebulized treatments. Sputum culture blood cultures. Aggressive pulmonary toileting. Continue to use oxygen. (2) Acute respiratory failure with hypoxemia Is this a current diagnosis for this admission?: YesPlan: continue oxygen as needed. Secondary to underlying pneumonia. (3) Altered mental status Qualifiers: Altered mental status type: somnolence Qualified Code(s): R40.0 - Somnolence Is this a current diagnosis for this admission?: YesPlan: This is likely secondary to sepsis and hyperglycemia as well as mild hypercapnia associated with not having his CPAP for several days. Continue to monitor. (4) Anemia Qualifiers: Anemia type: due to chronic kidney disease Chronic kidney disease stage : on chronic dialysis Qualified Code(s): N18.6 - End stage renal disease ; D63.1 - Anemia in chronic kidney disease; Z99.2 - Dependence on renal dialysis Is this a current diagnosis for this admission?: YesPlan: We will consult Dr. Young for hemodialysis/procrit (5) Coronary artery disease Qualifiers: Coronary Disease-Associated Artery/Lesion type: [place] artery [place] vs. transplanted heart: [place] heart Associated angina: without angina Qualified Code(s): I25.10 - Atherosclerotic heart disease of [place] coronary artery without angina pectoris Is this a current diagnosis for this admission?: Yes (6) Diabetes Qualifiers: Diabetes mellitus type: type 1 Diabetes mellitus complication status: with circulatory complication Diabetes mellitus complication detail: with other circulatory complications Qualified Code(s): E10.59 - Type 1 diabetes mellitus with other circulatory complications Is this a current diagnosis for this admission?: YesPlan: Patient has significant hyperglycemia. Place patient on insulin drip and normal saline at 100 mL/h. Patient normally is on an insulin pump. Patient does not show signs of DKA at this time. (7) GERD (gastroesophageal reflux disease) Qualifiers: Esophagitis presence: without esophagitis Qualified Code(s): K21.9 - Gastro-esophageal reflux disease without esophagitis Is this a current diagnosis for this admission?: Yes (8) Hyperlipidemia Qualifiers: Hyperlipidemia type: unspecified Is this a current diagnosis for this admission?: Yes (9) Hypertension Qualifiers: Hypertension type: essential hypertension Qualified Code(s): I10 - Essential (primary) hypertension Is this a current diagnosis for this admission?: Yes (10) Morbid obesity Is this a current diagnosis for this admission?: Yes (11) Obstructive sleep apnea Is this a current diagnosis for this admission?: YesPlan: Place patient on BiPAP at this time. Significant other plans to have his CPAP fixed. (12) Below knee amputation status Qualifiers: Laterality: bilateral Qualified Code(s): Z89.512 - Acquired absence of left leg below knee; Z89.511 - Acquired absence of right leg below knee Is this a current diagnosis for this admission?: Yes (13) End stage renal failure on dialysis Is this a current diagnosis for this admission?: YesPlan: Consult Dr. Young for hemodialysis for Sunday. - Time Time Spent: 50 to 70 Minutes Medications reviewed and adjusted accordingly: Yes - Inpatient Certification Based on my medical assessment, after consideration of the patient's comorbidities, presenting symptoms, or acuity I expect that the services needed warrant INPATIENT care.: Yes I certify that my determination is in accordance with my understanding of Medicare's requirements for reasonable and necessary INPATIENT services [42 CFR 412.3e].: Yes Medical Necessity: Need For IV Fluids, Need for Nebulizer Therapy and Monitoring of Response, Need for IV Antibiotics Post Hospital Care: D/C [employer] Documentation
[2017-05-25] MEDS ORDERED: METRONIDAZOLE 500 MG/NS RTU 100 ML IV ONE (16:00)
[2017-05-25] MEDS ORDERED: CEFEPIME HCL 0.5 GM in DEXTROSE 5%-WATER 25 ML IV SCH (18:00)
[2017-05-25 19:37] LABS: ARTERIAL BLOOD BASE EXCESS -2.6 mmol/L; ARTERIAL BLOOD O2 SATURATION 97.3 % (94-98)
--- NOTE | 2017-05-25 19:44 | RADIOLOGY REPORT (SQ) ---
EXAM DESCRIPTION: CHEST SINGLE VIEW COMPLETED DATE/TIME: 05/25/2017 7:22 pm REASON FOR STUDY: SHORTNESS OF BREATH COMPARISON: 05/25/2017 EXAM PARAMETERS: NUMBER OF VIEWS: One view. TECHNIQUE: Single frontal radiographic view of the chest acquired. RADIATION DOSE: NA LIMITATIONS: None. FINDINGS: LUNGS AND PLEURA: No consolidation, masses or pneumothorax. No significant pleural effusio n. MEDIASTINUM AND HILAR STRUCTURES: Stable contour. HEART AND VASCULAR STRUCTURES: Similar cardiomegaly. BONES: No acute findings. HARDWARE: None in the chest. OTHER: No other significant finding. IMPRESSION: NO ACUTE RADIOGRAPHIC FINDING IN THE CHEST. TECHNICAL DOCUMENTATION: JOB ID: [id number]
[2017-05-25] MEDS ORDERED: NALOXONE HCL INJ/PF 0.4 MG/1 ML SDV ONE (19:59)
[2017-05-25] MEDS: IPRATROPIUM/ALBUTEROL 0.5-2.5 MG/3 ML AMPUL NEB SCH (20:04)
[2017-05-25] MEDS ORDERED: BACLOFEN 20 MG TABLET NG ONE (21:00)
[2017-05-25 21:56] LABS: ARTERIAL BLOOD BASE EXCESS -1.7 mmol/L; ARTERIAL BLOOD O2 SATURATION 94.1 % (94-98)
[2017-05-25] MEDS ORDERED: CEFEPIME 1 GM/D5W RTU 1 GM/50 ML RTUPB IV SCH (22:00)
[2017-05-25 22:50] LABS: APPEARANCE,URINE CLEAR; BILIRUBIN,URINE NEGATIVE (NEGATIVE); GLUCOSE, URINE >=500 mg/dL (NEGATIVE); KETONES,URINE NEGATIVE (NEGATIVE); LEUKOCYTE ESTERASE,URINE NEGATIVE (NEGATIVE); NITRITE,URINE NEGATIVE (NEGATIVE); PROTEIN,URINE 100 mg/dL (NEGATIVE); URINE SPECIFIC GRAVITY 1.008; UROBILINOGEN,URINE NEGATIVE mg/dL (<2.0)
[2017-05-25] MEDS: METRONIDAZOLE 500 MG/NS RTU 100 ML IV SCH (23:29)
[2017-05-25] MEDS: GUAIFENESIN 600 MG TABLET.SA PO SCH (23:30)
[2017-05-25] MEDS: HEPARIN SOD (PORCINE) 5,000 UNIT/ML 1 ML SYRINGE SUBCUT SCH (23:30)
--- NOTE | 2017-05-25 23:31 | RADIOLOGY REPORT (SQ) ---
EXAM DESCRIPTION: KUB/ABDOMEN (SINGLE VIEW) COMPLETED DATE/TIME: 05/25/2017 8:59 pm REASON FOR STUDY: Check Placement of NG Tube COMPARISON: None. NUMBER OF VIEWS: One view. TECHNIQUE: Supine radiographic image of the abdomen acquired. LIMITATIONS: None. FINDINGS: BOWEL GAS PATTERN: No dilated loops. CALCIFICATIONS: No suspicious calcifications. SOFT TISSUES: No gross mass or suggestion of organomegaly. HARDWARE: Nasogastric catheter is present with tip overlying the body of the stomach. BONES: No acute fracture. No worrisome bone lesions. OTHER: No other significant finding. IMPRESSION: Nasogastric catheter is present with tip overlying the body of the stomach. TECHNICAL DOCUMENTATION: JOB ID: [id number] [employer]- All Rights Reserved
[2017-05-25] MEDS ORDERED: LINEZOLID IV ONE (23:48)
[2017-05-25] MEDS: LINEZOLID 600 MG TABLET PO SCH (23:54)
[2017-05-26] MEDS ORDERED: LINEZOLID 600 MG TABLET ONE
[2017-05-26] MEDS: METRONIDAZOLE 500 MG/NS RTU 100 ML IV SCH ×2 (02:41→09:24)
[2017-05-26 04:11] LABS: ABSOLUTE BASOPHILS # (AUTO) 0.1 10^3/uL (0.0-0.2); ABSOLUTE EOSINOPHILS # (AUTO) 0.1 10^3/uL (0.0-0.6); ABSOLUTE MONOCYTES (AUTO) 0.7 10^3/uL (0.1-1.4); ABSOLUTE NEUT (AUTO) 7.3 10^3/uL (1.7-8.2); BASOPHILS % (AUTO) 0.6 % (0-2); EOSINOPHILS % (AUTO) 1.1 % (0-6); HEMATOCRIT 29.3 % (37.9-51.0); HEMOGLOBIN 9.5 g/dL (13.5-17.0); HGB HCT DIFFERENCE -0.8; LYMPHOCYTES % (AUTO) 10.5 % (13-45); MEAN CORPUSCULAR HEMOGLOBIN 30.6 pg (27.0-33.4); MEAN CORPUSCULAR HGB CONC 32.4 g/dL (32.0-36.0); MEAN CORPUSCULAR VOLUME 95 fl (80-97); MONOCYTES % (AUTO) 7.9 % (3-13); RED CELL DISTRIBUTION WIDTH 17.1 % (11.5-14.0); SEGMENTED NEUTROPHILS % (AUTO) 79.9 % (42-78); WHITE BLOOD COUNT 9.2 10^3/uL (4.0-10.5)
[2017-05-26 04:26] LABS: ANION GAP 18 (5-19); BLOOD UREA NITROGEN 30 mg/dL (7-20); CARBON DIOXIDE 16 mmol/L (22-30); CHLORIDE 112 mmol/L (98-107); CREATININE RESULT 5.22 mg/dL (0.52-1.25); GLUCOSE 90 mg/dL (75-110); POTASSIUM 3.9 mmol/L (3.6-5.0); SODIUM 145.8 mmol/L (137-145)
[2017-05-26 04:37] LABS: CALCIUM 6.7 mg/dL (8.4-10.2)
[2017-05-26] MEDS ORDERED: CALCIUM GLUCONATE 2,222 MG in DEXTROSE 5%-WATER 100 ML IV ONE (05:00)
[2017-05-26] MEDS ORDERED: CALCIUM GLUCONATE 1000 MG/10 ML INJ IV PRN ×2 (05:00→06:24)
[2017-05-26] MEDS ORDERED: LORAZEPAM INJ 2 MG/1 ML VIAL ONE ×2 (05:17→09:52)
[2017-05-26] MEDS ORDERED: LORAZEPAM INJ 2 MG/1 ML VIAL IV ONE ×2 (05:30→10:30)
[2017-05-26 05:34] LABS: ARTERIAL BLOOD BASE EXCESS -4.2 mmol/L; ARTERIAL BLOOD O2 SATURATION 97.4 % (94-98)
[2017-05-26] MEDS: HEPARIN SOD (PORCINE) 5,000 UNIT/ML 1 ML SYRINGE SUBCUT SCH (06:00)
[2017-05-26] MEDS ORDERED: CALCIUM GLUCONATE 2,000 MG in DEXTROSE 5%-WATER 100 ML IV ONE (06:30)
[2017-05-26] MEDS ORDERED: NORMAL SALINE 100 ML with INSULIN REGULAR, HUMAN 100 UNIT IV PRN ×2 (08:02)
[2017-05-26] MEDS ORDERED: SUCCINYLCHOLINE CHLORIDE INJ 200 MG/10 ML VIAL ONE (08:11)
[2017-05-26] MEDS: IPRATROPIUM/ALBUTEROL 0.5-2.5 MG/3 ML AMPUL NEB SCH (08:36)
--- NOTE | 2017-05-26 09:03 | RADIOLOGY REPORT (SQ) ---
EXAM DESCRIPTION: CHEST SINGLE VIEW COMPLETED DATE/TIME: 05/26/2017 8:37 am REASON FOR STUDY: ?fluid overload COMPARISON: Chest films 05/25/2017, 04/28/2017 EXAM PARAMETERS: NUMBER OF VIEWS: One view. TECHNIQUE: Single frontal radiographic view of the chest acquired. RADIATION DOSE: NA LIMITATIONS: AP portable film, obese patient FINDINGS: LUNGS AND PLEURA: Minimal right basilar atelectasis. No fluffy alveolar infiltrates worrisome for edema or pneumonia. No pleural effusion or pneumothorax. MEDIASTINUM AND HILAR STRUCTURES: No masses. Contour normal. HEART AND VASCULAR STRUCTURES: Heart normal in size. Normal vasculature. BONES: No acute findings. HARDWARE: Nasogastric tube tip and side port below the hemidiaphragms OTHER: No other significant finding. IMPRESSION: Minimal right basilar atelectasis. Nasogastric tube tip and side port below the hemidiaphragms TECHNICAL DOCUMENTATION: JOB ID: [id number]
[2017-05-26] MEDS: GUAIFENESIN 600 MG TABLET.SA PO SCH (09:21)
[2017-05-26] MEDS: LINEZOLID 600 MG TABLET PO SCH (09:21)
[2017-05-26] MEDS ORDERED: SODIUM BICARBONATE 8.4% INJ 50 MEQ/50 ML DISP.SYRIN IV ONE (09:30)
[2017-05-26] MEDS ORDERED: PROPOFOL 100 ML IV PRN (09:51)
[2017-05-26] MEDS ORDERED: ACETAMINOPHEN 325 MG TABLET NG PRN (09:56)
[2017-05-26] MEDS ORDERED: DEXTROSE 40% GEL 15 GM TUBE NG PRN ×2 (09:56→09:57)
[2017-05-26] MEDS ORDERED: PHARMACY COMMUNICATION ORDER MC NR (10:00)
[2017-05-26] MEDS ORDERED: LINEZOLID 600 MG TABLET NG SCH (10:00)
[2017-05-26] MEDS ORDERED: PROPOFOL 100 ML IV ONE (10:05)
[2017-05-26 11:05] LABS: ABSOLUTE EOSINOPHILS # (AUTO) 0.1 10^3/uL (0.0-0.6); ABSOLUTE LYMPHOCYTES (AUTO) 0.5 10^3/uL (0.5-4.7); ABSOLUTE MONOCYTES (AUTO) 0.5 10^3/uL (0.1-1.4); ABSOLUTE NEUT (AUTO) 6.9 10^3/uL (1.7-8.2); BASOPHILS % (AUTO) 0.2 % (0-2); EOSINOPHILS % (AUTO) 1.1 % (0-6); HEMATOCRIT 32.8 % (37.9-51.0); HEMOGLOBIN 10.7 g/dL (13.5-17.0); HGB HCT DIFFERENCE -0.7; LYMPHOCYTES % (AUTO) 6.7 % (13-45); MEAN CORPUSCULAR HEMOGLOBIN 30.6 pg (27.0-33.4); MEAN CORPUSCULAR HGB CONC 32.8 g/dL (32.0-36.0); MEAN CORPUSCULAR VOLUME 94 fl (80-97); MONOCYTES % (AUTO) 6.6 % (3-13); RED BLOOD COUNT 3.51 10^6/uL (4.35-5.55); RED CELL DISTRIBUTION WIDTH 16.9 % (11.5-14.0); SEGMENTED NEUTROPHILS % (AUTO) 85.4 % (42-78); WHITE BLOOD COUNT 8.1 10^3/uL (4.0-10.5)
[2017-05-26 11:10] LABS: ANION GAP 16 (5-19); BLOOD UREA NITROGEN 36 mg/dL (7-20); CALCIUM 8.4 mg/dL (8.4-10.2); CARBON DIOXIDE 22 mmol/L (22-30); CHLORIDE 108 mmol/L (98-107); CREATININE RESULT 6.76 mg/dL (0.52-1.25); GLUCOSE 223 mg/dL (75-110); SODIUM 145.9 mmol/L (137-145)
--- NOTE | 2017-05-26 11:13 | PDOC PROGRESS REPORT ---
Subjective Progress Note for:: 05/26/17 Subjective:: Patient intubated and sedated. Discussed the case with Dr. Sinha who is currently attempting to get him transferred to a tertiary care facility given his most recent seizure. Physical Exam Vital Signs: Temp Pulse Resp BP Pulse Ox 97.5 F 96 16 140/74 H 95 05/26/17 07:49 05/26/17 08:37 05/26/17 08:37 05/26/17 07:49 05/26/17 10:15 Intake & Output 05/25/17 05/26/17 05/27/17 06:59 06:59 06:59 Intake Total 913 Output Total 190 10 Balance 723 -10 Weight 128 kg Extremities exam: PRESENT: right AKA - Surgical incision healing no evidence of erythema or drainage. [place] remain intact., left BKA Musculoskeletal exam: PRESENT: other Results Laboratory Results: 05/25/17 05/25/17 05/25/17 17:45 19:24 21:40 WBC RBC Hgb Hct MCV MCH MCHC RDW Plt Count Seg Neutrophils % Lymphocytes % Monocytes % Eosinophils % Basophils % Absolute Neutrophils Absolute Lymphocytes Absolute Monocytes Absolute Eosinophils Absolute Basophils Carbonic Acid 1.38 H 1.57 H HCO3/H2CO3 Ratio 17:1 16:1 ABG pH 7.33 L 7.30 L ABG pCO2 45.9 H 52.2 H ABG pO2 102.9 H 77.8 L ABG HCO3 23.5 25.2 ABG O2 Saturation 97.3 94.1 ABG Base Excess -2.6 -1.7 FiO2 30% 30% Sodium Potassium Chloride Carbon Dioxide Anion Gap BUN Creatinine Est GFR ( Amer) Est GFR (Non-Af Amer) Glucose Calcium Magnesium 2.2 Albumin Urine Color Urine Appearance Urine pH Ur Specific Tracy Urine Protein Urine Glucose (UA) Urine Ketones Urine Blood Urine Nitrite Ur Leukocyte Esterase Urine WBC (Auto) Urine RBC (Auto) 05/25/17 05/26/17 05/26/17 22:20 03:56 03:56 WBC 9.2 RBC 3.10 L Hgb 9.5 L Hct 29.3 L MCV 95 MCH 30.6 MCHC 32.4 RDW 17.1 H Plt Count 135 L Seg Neutrophils % 79.9 H Lymphocytes % 10.5 L Monocytes % 7.9 Eosinophils % 1.1 Basophils % 0.6 Absolute Neutrophils 7.3 Absolute Lymphocytes 1.0 Absolute Monocytes 0.7 Absolute Eosinophils 0.1 Absolute Basophils 0.1 Carbonic Acid HCO3/H2CO3 Ratio ABG pH ABG pCO2 ABG pO2 ABG HCO3 ABG O2 Saturation ABG Base Excess FiO2 Sodium 145.8 H Potassium 3.9 Chloride 112 H Carbon Dioxide 16 L Anion Gap 18 BUN 30 H Creatinine 5.22 H Est GFR ( Amer) 14 L Est GFR (Non-Af Amer) 11 L Glucose 90 Calcium 6.7 L* Magnesium Albumin Urine Color YELLOW Urine Appearance CLEAR Urine pH 8.0 Ur Specific Tracy 1.008 Urine Protein 100 H Urine Glucose (UA) >=500 H Urine Ketones NEGATIVE Urine Blood NEGATIVE Urine Nitrite NEGATIVE Ur Leukocyte Esterase NEGATIVE Urine WBC (Auto) 3 Urine RBC (Auto) 0 05/26/17 05/26/17 03:56 05:25 WBC RBC Hgb Hct MCV MCH MCHC RDW Plt Count Seg Neutrophils % Lymphocytes % Monocytes % Eosinophils % Basophils % Absolute Neutrophils Absolute Lymphocytes Absolute Monocytes Absolute Eosinophils Absolute Basophils Carbonic Acid 1.26 HCO3/H2CO3 Ratio 17:1 ABG pH 7.33 L ABG pCO2 41.8 ABG pO2 103.7 H ABG HCO3 21.5 ABG O2 Saturation 97.4 ABG Base Excess -4.2 FiO2 30% Sodium Potassium Chloride Carbon Dioxide Anion Gap BUN Creatinine Est GFR ( Amer) Est GFR (Non-Af Amer) Glucose Calcium Magnesium Albumin 3.1 L Urine Color Urine Appearance Urine pH Ur Specific Tracy Urine Protein Urine Glucose (UA) Urine Ketones Urine Blood Urine Nitrite Ur Leukocyte Esterase Urine WBC (Auto) Urine RBC (Auto) 05/25/17 17:45 Troponin I < 0.012 Impressions: Head CT 05/25/17 12:38 IMPRESSION: Mild involutional changes of aging with microvascular ischemic disease and no acute intracranial pathology. KUB X-Ray 05/25/17 20:37 IMPRESSION: Nasogastric catheter is present with tip overlying the body of the stomach. Assessment & Plan - Diagnosis (1) Below knee amputation status Qualifiers: Laterality: bilateral Qualified Code(s): Z89.512 - Acquired absence of left leg below knee Is this a current diagnosis for this admission?: YesPlan: Currently patient has multiple medical issues. His right below knee amputation stump is healing appropriately there is no sign or symptoms of infection at this time. Sebree may be removed.
--- NOTE | 2017-05-26 11:14 | RADIOLOGY REPORT (SQ) ---
EXAM DESCRIPTION: CHEST SINGLE VIEW COMPLETED DATE/TIME: 05/26/2017 10:31 am REASON FOR STUDY: tube placement COMPARISON: 12/21/2015, 02/20/2017, 05/26/2017 EXAM PARAMETERS: NUMBER OF VIEWS: One view. TECHNIQUE: Single frontal radiographic view of the chest acquired. RADIATION DOSE: NA LIMITATIONS: Obese patient, portable technique FINDINGS: Endotracheal tube tip 5 cm above the matias. Nasogastric tube tip and side port in the stomach. LUNGS AND PLEURA: Few air bronchograms in the right retrocardiac region of the right lung base, suspe ct right basilar atelectasis. Pneumonia could not be excluded. Remainder of the lungs are clear. No pleural effusions or pneumothorax. MEDIASTINUM AND HILAR STRUCTURES: No masses. Contour normal. HEART AND VASCULAR STRUCTURES: Stable cardiomegaly BONES: No acute findings. HARDWARE: As above OTHER: No other significant finding. IMPRESSION: Endotracheal tube tip 5 cm above the matias. Nasogastric tube tip and side port in the stomach. Air bronchograms above the right hemidiaphragm, atelectasis versus pneumonia. TECHNICAL DOCUMENTATION: JOB ID: [id number]
[2017-05-26 11:15] LABS: POTASSIUM 5.1 mmol/L (3.6-5.0)
--- NOTE | 2017-05-26 11:54 | RADIOLOGY REPORT (SQ) ---
EXAM DESCRIPTION: CHEST SINGLE VIEW COMPLETED DATE/TIME: 05/26/2017 11:33 am REASON FOR STUDY: central line placement COMPARISON: Chest films 05/26/2017, 1021 hours 05/25/2017, 02/20/2017 chest films EXAM PARAMETERS: NUMBER OF VIEWS: One view. TECHNIQUE: Single frontal radiographic view of the chest acquired. RADIATION DOSE: NA LIMITATIONS: None. FINDINGS: Interval placement of a right-sided subclavian central line with the tip in the superior v ashia cava. No pneumothorax. Endotracheal tube tip 5 cm above the matias. Nasogastric tube tip and side port in the stomach. LUNGS AND PLEURA: Increase in volume loss at the right lung base, now with right middle lobe collapse and partial collapse right lower lobe. There is now bandlike atelectasis at the left lung base. No pulmonary edema. No gross pleural effusion or pneumothorax. MEDIASTINUM AND HILAR STRUCTURES: No masses. Contour normal. HEART AND VASCULAR STRUCTURES: Stable cardiomegaly BONES: No acute findings. HARDWARE: As above OTHER: No other significant finding. IMPRESSION: Right subclavian central line tip superior vena cava. No pneumothorax. Increasing volume loss and consolidation in the right middle and lower lobe compared to previous stud ies. TECHNICAL DOCUMENTATION: JOB ID: [id number]
[2017-05-26] MEDS ORDERED: VANCOMYCIN HCL INJ 500 MG VIAL NG SCH (12:00)
[2017-05-26 12:06] LABS: ARTERIAL BLOOD BASE EXCESS -2.8 mmol/L; ARTERIAL BLOOD O2 SATURATION 80.3 % (94-98)
--- NOTE | 2017-05-26 12:12 | OPERATIVE REPORT E ---
Operative Report NAME: SHARONDA SU : 1955 AGE: 62Y DATE OF SURGERY: 05/26/2017 ROOM: 605 PREOPERATIVE DIAGNOSIS: Poor veins for intravenous access and also needed more intravenous lines for her medications and intravenous fluids. POSTOPERATIVE DIAGNOSIS: Poor veins for intravenous access and also needed more intravenous lines for her medications and intravenous fluids. PROCEDURE: Placement of right subclavian triple-lumen catheter. SURGEON: ADAM LANDRY M.D. ANESTHESIA: Local with IV sedation. DESCRIPTION OF PROCEDURE: Patient was in slight Trendelenburg position, intubated, and given extra propofol for more sedation. Next, the right chest and neck were then prepped and draped in the usual sterile fashion. With the use of ultrasound, the right internal jugular vein was then identified. However, I decided to try placement of triple-lumen through the right subclavian vein site. Local anesthesia was infiltrated in the right infraclavicular area. The right subclavian vein was then punctured and guidewire passed through the needle into the area of the superior vena cava. Needle was removed and the puncture site enlarged. Next, a triple-lumen catheter was then passed through the guidewire towards the area of the superior vena cava up to about 16 cm. Next, the guidewire was removed and blood aspirated through all the port sites quite easily and also easily insufflated with saline. The catheter was then anchored to the skin with 3-0 Silk and the Biopatch placed at the puncture site. A sterile transparent dressing was then placed over the puncture site. Chest x-ray was obtained in the ICU and it showed the catheter in good position. However, there is a little decrease in lung markings on the right side and I am waiting for the final report to make sure there is no pneumothorax, though the puncture was a single puncture and it is unlikely that I have caused a pneumothorax. At any rate, patient tolerated the procedure well. DICTATING PHYSICIAN: ADAM LANDRY M.D. [id number] PHY#: [id number] ID: [id number] JOB#: [id number] ACCT: [id number] cc:ADAM LANDRY M.D. >
--- NOTE | 2017-05-26 12:22 | PDOC TRANSFER SUMMARY ---
General Admission Date/PCP: 05/25/17 14:25 JOHNNY MCALLISTER MD Admission Date: 05/25/17 Transfer Date: 05/26/17 Accepting Facility: [facility] Accepting Physician: Dr. Douglas Resuscitation Status: Full Code - Transfer Diagnosis (1) New onset seizure Is this a current diagnosis for this admission?: Yes (2) Hyperkalemia Is this a current diagnosis for this admission?: Yes (3) Acute respiratory failure with hypoxia and hypercapnia Is this a current diagnosis for this admission?: Yes (4) Postoperative pneumonia Is this a current diagnosis for this admission?: Yes (5) Acute respiratory failure with hypoxemia Is this a current diagnosis for this admission?: Yes (6) Altered mental status Is this a current diagnosis for this admission?: Yes (7) Anemia Is this a current diagnosis for this admission?: Yes (8) Coronary artery disease Is this a current diagnosis for this admission?: Yes (9) Diabetes Is this a current diagnosis for this admission?: Yes (10) GERD (gastroesophageal reflux disease) Is this a current diagnosis for this admission?: Yes (11) Hyperlipidemia Is this a current diagnosis for this admission?: Yes (12) Hypertension Is this a current diagnosis for this admission?: Yes (13) Morbid obesity Is this a current diagnosis for this admission?: Yes (14) Obstructive sleep apnea Is this a current diagnosis for this admission?: Yes (15) Below knee amputation status Is this a current diagnosis for this admission?: Yes (16) End stage renal failure on dialysis Is this a current diagnosis for this admission?: Yes - Transfer Medications Home Medications: Baclofen [Baclofen 10 mg Tablet] 10 mg PO TIDP PRN 05/25/17 Calcium Acetate [Phoslo 667 mg Capsule] 2,668 mg PO MEALS 05/25/17 Escitalopram Oxalate [Lexapro] 20 mg PO QPM 05/25/17 Gabapentin [Neurontin 300 mg Capsule] 600 mg PO Q12 05/25/17 Multivitamin [Daily Multiple Vitamin] 1 tab PO DAILY 05/25/17 Omeprazole 40 mg PO Q12 05/25/17 Pantoprazole Sodium [Protonix] 40 mg PO DAILY@0600 05/25/17 Transfer Medications: Current Medications Acetaminophen (Tylenol 325 Mg Tablet) 650 mg NG Q4HP PRN PRN Reason: pain or temp greater than 101F Stop: 06/25/17 09:55 Albuterol/Ipratropium (Duoneb 3 Ml Ampul) 3 ml NEB RTQ6 [facility] Stop: 06/25/17 13:59 Dextrose (Dextrose Inj 50% Syringe (25 Gm/50 Ml)) 12.5 gm IV PRN PRN; Protocol PRN Reason: FOR BG 50-69 IN ALERT PATIENT Stop: 06/24/17 14:38 Dextrose (Dextrose Inj 50% Syringe (25 Gm/50 Ml)) 25 gm IV PRN PRN PRN Reason: Protocol Stop: 06/24/17 14:38 Glucagon (Glucagen Inj 1 Mg Vial) 1 mg IM PRN PRN; Protocol PRN Reason: Evaluate for BG < 70 Stop: 06/24/17 14:38 Glucose (Glutose 40% Gel 15 Gm Tube) 15 gm NG PRN PRN; Protocol PRN Reason: FOR BG 50-69 IN ALERT PATIENT Stop: 06/25/17 09:55 Glucose (Glutose 40% Gel 15 Gm Tube) 30 gm NG PRN PRN; Protocol PRN Reason: FOR BG < 50 IN ALERT PATIENT Stop: 06/25/17 09:56 Guaifenesin (Mucinex Sr 600 Mg Tablet.Sa) 600 mg PO Q12 [facility] Stop: 06/24/17 21:59 Last Admin: 05/26/17 09:21 Dose: 600 mg Heparin Sodium (Porcine) (Heparin Inj 5,000 Units/Ml 1 Ml Syringe) 5,000 unit SUBCUT Q8 [facility] Stop: 06/24/17 21:59 Last Admin: 05/26/17 06:00 Dose: Not Given Sodium Chloride (Nacl 0.9% 1000 Ml Iv Soln) 1,000 mls @ 75 mls/hr IV CONTINUOUS PRN PRN Reason: THIS MED IS NOT "PRN" Last Admin: 05/25/17 17:08 Dose: 1,000 ml Cefepime HCl 0.5 gm/ Dextrose 25 mls @ 50 mls/hr IV QPM [facility] Stop: 06/01/17 17:59 Last Admin: 05/25/17 18:28 Dose: 0.5 gm Metronidazole (Flagyl Rtu 500 Mg/Ns 100ml Premix) 100 mls @ 100 mls/hr IV Q6A [facility] Stop: 06/01/17 20:59 Last Admin: 05/26/17 09:24 Dose: 100 ml Insulin Human Regular 100 unit (/ Sodium Chloride) 101 mls @ 0 mls/hr IV CONTINUOUS PRN; Protocol; Titrate PRN Reason: THIS MED IS NOT "PRN" Stop: 06/25/17 08:01 Propofol (Diprivan Rtu 1000 Mg/100 Ml Inf.Bottle) 100 mls @ 0 mls/hr IV CONTINUOUS PRN; Protocol; Titrate PRN Reason: THIS MED IS NOT "PRN" Stop: 06/25/17 09:50 Levalbuterol HCl (Xopenex Neb 1.25 Mg/3 Ml Ampul) 1.25 mg NEB RTQ2HP PRN Stop: 06/24/17 14:24 Last Admin: 05/26/17 03:05 Dose: 1.25 mg Linezolid (Zyvox 600 Mg Tablet) 600 mg NG Q12 [facility] Stop: 06/02/17 09:59 Pharmacy Profile Note (Medication Communication Order) 1 each [facility] .NOTICE NR Stop: 06/24/17 14:29 Pharmacy Profile Note (Medication Communication Order) 1 each [facility] .NOTICE NR Stop: 06/25/17 09:59 Sodium Chloride (Saline Flush 2.5 Ml Monoject Prefil Syrin) 2.5 ml IV Q8 [facility] Stop: 06/24/17 21:59 Last Admin: 05/26/17 06:00 Dose: 2.5 ml Vancomycin HCl (Vancocin Inj 500 Mg Vial) 250 mg NG Q6 [facility] Stop: 06/02/17 11:59 - Allergies Allergies/Adverse Reactions: No Known Allergies Allergy (Verified 04/20/17 15:13) - Diet/Activity Discharge Diet: Other (Comments) Hospital Course Hospital Course: Patient presented yesterday with hyperglycemia and AMS. Started on insulin ggt and treatment for HCAP. Patient never really roused and began having some respiratory distress. Patient transferred to ICU. This morning patient had a witnessed tonic clonic seizure. Given ativan 2mg IVx1 with resolution. Patient intubated and central line placed. [facility] contacted for neurology evaluation. Repeat chemistry reveals mild hyperkalemia 5.1. Insulin ggt restarted. Patient will need HD. CXR shows worsening infiltrate in right middle and lower lobes. Physical Exam Vital Signs: Temp Pulse Resp BP Pulse Ox 97.7 F 87 12 108/72 95 05/26/17 10:00 05/26/17 10:00 05/26/17 10:00 05/26/17 10:00 05/26/17 10:15 Intake & Output 05/25/17 05/26/17 05/27/17 06:59 06:59 06:59 Intake Total 913 Output Total 190 40 Balance 723 -40 Weight 128 kg Exam: General appearance: PRESENT: moderate distress, morbidly obese, well-developed, well-nourished Head exam: PRESENT: atraumatic, normocephalic Eye exam: PRESENT: conjunctiva pink, EOMI, PERRLA. ABSENT: conjunctival injection, conjunctiva pale, scleral icterus Ear exam: PRESENT: normal external ear exam Mouth exam: PRESENT: moist, tongue midline Neck exam: ABSENT: JVD, lymphadenopathy, thyromegaly, tracheal deviation Respiratory exam: PRESENT: rhonchi RML, RLL, basilar rales Cardiovascular exam: PRESENT: RRR, +S1, +S2, systolic murmur. ABSENT: diastolic murmur, rubs GI/Abdominal exam: PRESENT: normal bowel sounds, soft. ventral hernia A Extremities exam: bilateral amputee, no cyanosis, no clubbing, mild bilateral arm edema Musculoskeletal exam: PRESENT: other - Mild surrounding bilateral lower extremity amputee, damon intact and right stump reactive erythema Skin exam: PRESENT: dry, intact, warm. ABSENT: cyanosis, rash Results Laboratory Results: 05/26/17 10:34 05/26/17 10:34 05/25/17 05/25/17 05/25/17 17:45 19:24 21:40 WBC RBC Hgb Hct MCV MCH MCHC RDW Plt Count Seg Neutrophils % Lymphocytes % Monocytes % Eosinophils % Basophils % Absolute Neutrophils Absolute Lymphocytes Absolute Monocytes Absolute Eosinophils Absolute Basophils Carbonic Acid 1.38 H 1.57 H HCO3/H2CO3 Ratio 17:1 16:1 ABG pH 7.33 L 7.30 L ABG pCO2 45.9 H 52.2 H ABG pO2 102.9 H 77.8 L ABG HCO3 23.5 25.2 ABG O2 Saturation 97.3 94.1 ABG Base Excess -2.6 -1.7 FiO2 30% 30% Sodium Potassium Chloride Carbon Dioxide Anion Gap BUN Creatinine Est GFR ( Amer) Est GFR (Non-Af Amer) Glucose Calcium Magnesium 2.2 Albumin Urine Color Urine Appearance Urine pH Ur Specific [place] Urine Protein Urine Glucose (UA) Urine Ketones Urine Blood Urine Nitrite Ur Leukocyte Esterase Urine WBC (Auto) Urine RBC (Auto) 05/25/17 05/26/17 05/26/17 22:20 03:56 03:56 WBC 9.2 RBC 3.10 L Hgb 9.5 L Hct 29.3 L MCV 95 MCH 30.6 MCHC 32.4 RDW 17.1 H Plt Count 135 L Seg Neutrophils % 79.9 H Lymphocytes % 10.5 L Monocytes % 7.9 Eosinophils % 1.1 Basophils % 0.6 Absolute Neutrophils 7.3 Absolute Lymphocytes 1.0 Absolute Monocytes 0.7 Absolute Eosinophils 0.1 Absolute Basophils 0.1 Carbonic Acid HCO3/H2CO3 Ratio ABG pH ABG pCO2 ABG pO2 ABG HCO3 ABG O2 Saturation ABG Base Excess FiO2 Sodium 145.8 H Potassium 3.9 Chloride 112 H Carbon Dioxide 16 L Anion Gap 18 BUN 30 H Creatinine 5.22 H Est GFR ( Amer) 14 L Est GFR (Non-Af Amer) 11 L Glucose 90 Calcium 6.7 L* Magnesium Albumin Urine Color YELLOW Urine Appearance CLEAR Urine pH 8.0 Ur Specific [place] 1.008 Urine Protein 100 H Urine Glucose (UA) >=500 H Urine Ketones NEGATIVE Urine Blood NEGATIVE Urine Nitrite NEGATIVE Ur Leukocyte Esterase NEGATIVE Urine WBC (Auto) 3 Urine RBC (Auto) 0 05/26/17 05/26/17 05/26/17 03:56 05:25 10:34 WBC RBC Hgb Hct MCV MCH MCHC RDW Plt Count Seg Neutrophils % Lymphocytes % Monocytes % Eosinophils % Basophils % Absolute Neutrophils Absolute Lymphocytes Absolute Monocytes Absolute Eosinophils Absolute Basophils Carbonic Acid 1.26 HCO3/H2CO3 Ratio 17:1 ABG pH 7.33 L ABG pCO2 41.8 ABG pO2 103.7 H ABG HCO3 21.5 ABG O2 Saturation 97.4 ABG Base Excess -4.2 FiO2 30% Sodium 145.9 H Potassium 5.1 H D Chloride 108 H Carbon Dioxide 22 Anion Gap 16 BUN 36 H Creatinine 6.76 H Est GFR ( Amer) 10 L Est GFR (Non-Af Amer) 8 L Glucose 223 H Calcium 8.4 Magnesium Albumin 3.1 L Urine Color Urine Appearance Urine pH Ur Specific [place] Urine Protein Urine Glucose (UA) Urine Ketones Urine Blood Urine Nitrite Ur Leukocyte Esterase Urine WBC (Auto) Urine RBC (Auto) 05/26/17 05/26/17 10:34 11:50 WBC 8.1 RBC 3.51 L Hgb 10.7 L Hct 32.8 L MCV 94 MCH 30.6 MCHC 32.8 RDW 16.9 H Plt Count 175 Seg Neutrophils % 85.4 H Lymphocytes % 6.7 L Monocytes % 6.6 Eosinophils % 1.1 Basophils % 0.2 Absolute Neutrophils 6.9 Absolute Lymphocytes 0.5 Absolute Monocytes 0.5 Absolute Eosinophils 0.1 Absolute Basophils 0.0 Carbonic Acid 1.27 HCO3/H2CO3 Ratio 17:1 ABG pH 7.35 ABG pCO2 42.1 ABG pO2 46.5 L ABG HCO3 22.7 ABG O2 Saturation 80.3 L ABG Base Excess -2.8 FiO2 40% Sodium Potassium Chloride Carbon Dioxide Anion Gap BUN Creatinine Est GFR ( Amer) Est GFR (Non-Af Amer) Glucose Calcium Magnesium Albumin Urine Color Urine Appearance Urine pH Ur Specific [place] Urine Protein Urine Glucose (UA) Urine Ketones Urine Blood Urine Nitrite Ur Leukocyte Esterase Urine WBC (Auto) Urine RBC (Auto) 05/25/17 17:45 Troponin I < 0.012 Impressions: Head CT 05/25/17 12:38 IMPRESSION: Mild involutional changes of aging with microvascular ischemic disease and no acute intracranial pathology. KUB X-Ray 05/25/17 20:37 IMPRESSION: Nasogastric catheter is present with tip overlying the body of the stomach. Chest X-Ray 05/26/17 11:19 IMPRESSION: Right subclavian central line tip superior vena cava. No pneumothorax. Increasing volume loss and consolidation in the right middle and lower lobe compared to previous studies. Status: Imported from PACS Plan Time Spent: Greater than 30 Minutes
[2017-05-26 12:46] LABS: ARTERIAL BLOOD BASE EXCESS -2.3 mmol/L
[2017-05-26 13:48] VITALS: BP 100/61
[2017-05-26] MEDS ORDERED: IPRATROPIUM/ALBUTEROL 0.5-2.5 MG/3 ML AMPUL NEB SCH (14:00)
[2017-05-29] MEDS ORDERED: MIDAZOLAM HCL 0 ML IV ONE (05:54)
[2017-05-29] MEDS ORDERED: PROPOFOL 0 ML IV ONE (05:54)
== END 2017-05-26 13:20 | disposition short-term general hospital (02) | DRG 208 ==
LOC: ER 09:05 → EH 14:25 → 3W 16:44 → ICU 20:15
PROVIDERS: ADMIT Family Medicine; ATTEND Family Medicine
PROC: 0D9670Z Drainage of Stomach with Drainage Device, Via Natural or Artificial Opening (ICD-10-PCS; 2017-05-25)
PROC: 5A09357 Assistance with Respiratory Ventilation, Less than 24 Consecutive Hours, Continuous Positive Airway Pressure (ICD-10-PCS; 2017-05-25)
PROC: 3E0234Z Introduction of Serum, Toxoid and Vaccine into Muscle, Percutaneous Approach (ICD-10-PCS; 2017-05-25)
PROC: 5A1935Z Respiratory Ventilation, Less than 24 Consecutive Hours (ICD-10-PCS; principal; 2017-05-26)
PROC: 02HV33Z Insertion of Infusion Device into Superior Vena Cava, Percutaneous Approach (ICD-10-PCS; 2017-05-26)
DX: J95.89 Other postprocedural complications and disorders of respiratory system, not elsewhere classified (principal); J96.01 Acute respiratory failure with hypoxia; J96.02 Acute respiratory failure with hypercapnia; N18.6 End stage renal disease; Z68.41 Body mass index [BMI] 40.0-44.9, adult; I12.0 Hypertensive chronic kidney disease with stage 5 chronic kidney disease or end stage renal disease; Y83.5 Amputation of limb(s) as the cause of abnormal reaction of the patient, or of later complication, without mention of misadventure at the time of the procedure; G40.409 Other generalized epilepsy and epileptic syndromes, not intractable, without status epilepticus; E87.5 Hyperkalemia; I25.10 Atherosclerotic heart disease of native coronary artery without angina pectoris; K21.9 Gastro-esophageal reflux disease without esophagitis; E11.65 Type 2 diabetes mellitus with hyperglycemia; E78.5 Hyperlipidemia, unspecified; G47.33 Obstructive sleep apnea (adult) (pediatric); E66.01 Morbid (severe) obesity due to excess calories; E11.22 Type 2 diabetes mellitus with diabetic chronic kidney disease; D63.1 Anemia in chronic kidney disease; R01.1 Cardiac murmur, unspecified; F32.9 Major depressive disorder, single episode, unspecified; F43.10 Post-traumatic stress disorder, unspecified; M19.90 Unspecified osteoarthritis, unspecified site; I25.2 Old myocardial infarction; Z78.1 Physical restraint status; Z79.899 Other long term (current) drug therapy; Z85.46 Personal history of malignant neoplasm of prostate; Z99.2 Dependence on renal dialysis; Z89.512 Acquired absence of left leg below knee; Z89.511 Acquired absence of right leg below knee; Z95.5 Presence of coronary angioplasty implant and graft; Z99.81 Dependence on supplemental oxygen; Z86.14 Personal history of Methicillin resistant Staphylococcus aureus infection; Z82.49 Family history of ischemic heart disease and other diseases of the circulatory system; Z83.3 Family history of diabetes mellitus
CPT/HCPCS: 31500; 36415; 36600; 70450; 71010; 71020; 74000; 80048; 80053; 81001; 82040; 82803; 82962; 83605; 83690; 83735; 84484; 85025; 87040; 87086; 93005; 93010; 94002; 94660; 96365; 99291; C1751; J0330; J0610; J0692; J1815; J1956; J2060; J2310; J2704; J3370; J3490; J7030; J7620